=== PATIENT | female | born 1955 | race Caucasian/White ===

== ENCOUNTER 2018-01-10 14:45 | Inpatient (IN) | payer OTHER ==
[2018-01-10] MEDS ORDERED: Propranolol TAB* 20 MG PO ONE (15:48)
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
[2018-01-10] MEDS ORDERED: Acetaminophen TAB* 325 MG PO ONE (16:53)
[2018-01-10] MEDS ORDERED: Amitriptyline TAB* 50 MG PO ONE (17:21)
[2018-01-10] MEDS ORDERED: FLUoxetine CAP* 20 MG PO ONE (17:22)
[2018-01-10] MEDS ORDERED: Amitriptyline TAB* 25 MG PO ONE (17:30)
[2018-01-10 17:49] LABS: EGFR Non-African American 70.9 (>60)
[2018-01-10 17:51] LABS: ABS Basophils 0 10^3/ul (0-0.2); ABS Eosinophils 0.1 10^3/ul (0-0.6); ABS Lymphocytes 2.9 10^3/ul (1.0-4.8); ABS Monocytes 0.9 10^3/ul (0-0.8); ABS Nucleated RBC 0 10^3/ul; Eosinophil % 1.3 % (0-6); Hematocrit 40 % (35-47); Hemoglobin 13.5 g/dl (12.0-16.0); Lymphocyte % 32.7 % (25-47); Mean Corpuscular HGB Conc 34 g/dl (31-36); Mean Corpuscular Hemoglobin 29 pg (27-31); Mean Corpuscular Volume 86 fL (80-97); Mean Platelet Volume 7.3 um3 (7.4-10.4); Nucleated Red Blood Cells % 0; Platelet Count 380 10^3/ul (150-450); Red Cell Distribution Width 14 % (10.5-15)
[2018-01-10 18:07] LABS: Urine Appearance Clear; Urine Blood Negative (Negative); Urine Color Yellow; Urine Ketones Negative (Negative); Urine Protein Negative (Negative); Urine Specific Gravity 1.012 (1.010-1.030); Urine Urobilinogen Negative (Negative)
--- NOTE | 2018-01-10 18:26 | RAD ---
INDICATION: Paranoia. Evaluate for CVA COMPARISON: None TECHNIQUE: Noncontrast axial source images were acquired from the skull base to the vertex. FINDINGS: Ventricles/sulci: The ventricles and cisterns are normal in size and configuration for age. Brain parenchyma: There is no focal parenchymal finding, evidence of intracranial mass, or intracranial mass effect. Intracranial hemorrhage:None. Extra-axial spaces: There are no abnormal extra axial fluid collections or evidence of extra-axial mass. Calvarium: There is no calvarial fracture or other calvarial abnormality. Scalp: There is no evidence of scalp or extracalvarial soft tissue abnormality. Paranasal sinuses/mastoid: The paranasal sinuses and mastoid air cells are clear. Other: None. IMPRESSION: NEGATIVE EXAMINATION.
[2018-01-10] MEDS ORDERED: Cyclobenzaprine TAB* 10 MG PO ONE (19:10)
--- NOTE | 2018-01-10 21:51 | ED ---
Course/Dx - Course Course Of Treatment: PATIENT IS MEDICALLY CLEARED FOR MHE. MHE AND DISPOSITION PENDING AT SHIFT CHANGE. - Diagnoses Provider Diagnoses: Anxiety, Paranoia, Rebound hypertension, Suicidal ideation Discharge - Sign-Out/Discharge Documenting (check all that apply): Sign-Out Patient Signing out patient TO: Marcial Parra - Discharge Plan Condition: Improved Disposition: [facility]IATRIC FACILITY-[facility] [place] Referrals: No Primary Care Phys,NOPCP [Primary Care Provider] - - Billing Disposition and Condition Condition: IMPROVED Disposition: [facility]
[2018-01-10] MEDS ORDERED: Lidocaine PATCH 5%* 1 PATCH TRANSDERM SCH (23:45)
[2018-01-11] MEDS: Cyclobenzaprine TAB* 10 MG PO ONE ×2 (02:28→02:52)
[2018-01-11] MEDS: Amitriptyline TAB* 50 MG PO ONE ×2 (02:28→04:00)
[2018-01-11] MEDS: Acetaminophen TAB* 325 MG PO ONE ×2 (02:28→02:47)
[2018-01-11] MEDS ORDERED: Lidocaine PATCH 5%* 1 PATCH ONE (02:44)
[2018-01-11] MEDS ORDERED: Lidocaine PATCH 5%* 1 PATCH TRANSDERM ONE (02:47)
[2018-01-11] MEDS ORDERED: FLUoxetine CAP* 20 MG PO ONE (06:59)
--- NOTE | 2018-01-11 07:17 | PN ---
ED Flex Patient Progress Note Subjective: This is a 62 year-old F who is pending admission to [facility] secondary to anxiety, paranoia, SI . Pt reports she was sitting in bed, thinking about suicide. States she will not act on it at this time. Wondering when she will go to the unit. Concerned about her WBC's. Reports the cocaine + is wrong. Objective: Vitals: Most recent vital signs documented below. General NAD, Alert and oriented x3. Heart: rrr S1/S2, Lungs: CTA breathing easily AB: + BS, soft, NTTP Laboratory: Current laboratory results documented below. Assessment: 1) Anxiety, paranoia, SI 2) Rebound HTN 3) Chronic pain Plan: 1) Pending psychiatric admit. Prozac, amitriptyline, benadryl, propranolol rx' d. Will follow up daily _while in ED____. 2) Controlled w/ propranolol 20mg TID 3) Flexeril, amitriptyline ordered. She has also tried acetaminophen and lidoderm patches while here. No narcotics. Vital Signs Temp Pulse Resp BP Pulse Ox 97.8 F 83 16 132/92 97 01/11/18 06:51 01/11/18 06:51 01/11/18 06:51 01/11/18 06:51 01/11/18 06:51 Lab Results - Entire Visit 01/10/18 01/10/18 01/10/18 17:24 17:24 17:20 WBC 9.0 RBC 4.70 Hgb 13.5 Hct 40 MCV 86 MCH 29 MCHC 34 RDW 14 Plt Count 380 MPV 7.3 L Neut % (Auto) 55.7 Lymph % (Auto) 32.7 Arthur % (Auto) 9.8 H Eos % (Auto) 1.3 Baso % (Auto) 0.5 Absolute Neuts (auto) 5.0 Absolute Lymphs (auto) 2.9 Absolute Monos (auto) 0.9 H Absolute Eos (auto) 0.1 Absolute Basos (auto) 0 Absolute Nucleated RBC 0 Nucleated RBC % 0 Sodium 135 L Potassium 3.7 Chloride 100 L Carbon Dioxide 26 Anion Gap 9 BUN 9 Creatinine 0.82 Est GFR ( Amer) 91.1 Est GFR (Non-Af Amer) 70.9 BUN/Creatinine Ratio 11.0 Glucose 102 H Calcium 9.3 Total Bilirubin 0.30 AST 17 ALT 16 Alkaline Phosphatase 71 Total Protein 7.3 Albumin 4.3 Globulin 3.0 Albumin/Globulin Ratio 1.4 TSH 1.36 Urine Color Urine Appearance Urine pH Ur Specific [place] Urine Protein Urine Ketones Urine Blood Urine Nitrate Urine Bilirubin Urine Urobilinogen Ur Leukocyte Esterase Urine WBC (Auto) Urine RBC (Auto) Ur Squamous Epith Cells Urine Bacteria Urine Glucose Salicylates < 2.50 Urine Opiates Screen None detected Acetaminophen < 15 Ur Barbiturates Screen None detected Ur Phencyclidine Scrn None detected Ur Amphetamines Screen None detected U Benzodiazepines Scrn Presumptive positive A Urine Cocaine Screen Presumptive positive A U Cannabinoids Screen None detected Serum Alcohol < 10 01/10/18 17:20 WBC RBC Hgb Hct MCV MCH MCHC RDW Plt Count MPV Neut % (Auto) Lymph % (Auto) Arthur % (Auto) Eos % (Auto) Baso % (Auto) Absolute Neuts (auto) Absolute Lymphs (auto) Absolute Monos (auto) Absolute Eos (auto) Absolute Basos (auto) Absolute Nucleated RBC Nucleated RBC % Sodium Potassium Chloride Carbon Dioxide Anion Gap BUN Creatinine Est GFR ( Amer) Est GFR (Non-Af Amer) BUN/Creatinine Ratio Glucose Calcium Total Bilirubin AST ALT Alkaline Phosphatase Total Protein Albumin Globulin Albumin/Globulin Ratio TSH Urine Color Yellow Urine Appearance Clear Urine pH 6.0 Ur Specific [place] 1.012 Urine Protein Negative Urine Ketones Negative Urine Blood Negative Urine Nitrate Negative Urine Bilirubin Negative Urine Urobilinogen Negative Ur Leukocyte Esterase 2+ A Urine WBC (Auto) 1+(6-10/hpf) A Urine RBC (Auto) Absent Ur Squamous Epith Cells Present A Urine Bacteria Absent Urine Glucose Negative Salicylates Urine Opiates Screen Acetaminophen Ur Barbiturates Screen Ur Phencyclidine Scrn Ur Amphetamines Screen U Benzodiazepines Scrn Urine Cocaine Screen U Cannabinoids Screen Serum Alcohol <Mari Bergman - Last Filed: 01/11/18 07:12> Subjective: This is a 62 year-old F who is pending admission to [facility] / transfer to another psychiatric facility / discharge to home / or being observed secondary to . Pt offers no complaints at this time or is c/o . Objective: Vitals: Most recent vital signs documented below. General NAD, Alert and oriented x3. Heart: rrr at bpm Lungs: CTA or with rales, rhonchi, wheezing Laboratory: Current laboratory results documented below. Assessment: Plan: Pending psychiatric or medical consultation to observe / transfer / admit / discharge will follow up daily . Vital Signs Temp Pulse Resp BP Pulse Ox 36.2 C 86 16 121/85 99 01/13/18 07:43 01/13/18 20:06 01/13/18 20:12 01/13/18 20:06 01/13/18 07:43 Lab Results - Entire Visit 01/10/18 01/10/18 01/10/18 17:24 17:24 17:24 WBC 9.0 RBC 4.70 Hgb 13.5 Hct 40 MCV 86 MCH 29 MCHC 34 RDW 14 Plt Count 380 MPV 7.3 L Neut % (Auto) 55.7 Lymph % (Auto) 32.7 Arthur % (Auto) 9.8 H Eos % (Auto) 1.3 Baso % (Auto) 0.5 Absolute Neuts (auto) 5.0 Absolute Lymphs (auto) 2.9 Absolute Monos (auto) 0.9 H Absolute Eos (auto) 0.1 Absolute Basos (auto) 0 Absolute Nucleated RBC 0 Nucleated RBC % 0 Sodium 135 L Potassium 3.7 Chloride 100 L Carbon Dioxide 26 Anion Gap 9 BUN 9 Creatinine 0.82 Est GFR ( Amer) 91.1 Est GFR (Non-Af Amer) 70.9 BUN/Creatinine Ratio 11.0 Glucose 102 H Hemoglobin A1c 5.7 H Calcium 9.3 Total Bilirubin 0.30 AST 17 ALT 16 Alkaline Phosphatase 71 Total Protein 7.3 Albumin 4.3 Globulin 3.0 Albumin/Globulin Ratio 1.4 Triglycerides 97 Cholesterol 211 LDL Cholesterol 128 HDL Cholesterol 63.4 TSH 1.36 Urine Color Urine Appearance Urine pH Ur Specific [place] Urine Protein Urine Ketones Urine Blood Urine Nitrate Urine Bilirubin Urine Urobilinogen Ur Leukocyte Esterase Urine WBC (Auto) Urine RBC (Auto) Ur Squamous Epith Cells Urine Bacteria Urine Glucose Salicylates < 2.50 Urine Opiates Screen Acetaminophen < 15 Ur Barbiturates Screen Ur Phencyclidine Scrn Ur Amphetamines Screen U Benzodiazepines Scrn Urine Cocaine Screen U Cannabinoids Screen Serum Alcohol < 10 01/10/18 01/10/18 17:20 17:20 WBC RBC Hgb Hct MCV MCH MCHC RDW Plt Count MPV Neut % (Auto) Lymph % (Auto) Arthur % (Auto) Eos % (Auto) Baso % (Auto) Absolute Neuts (auto) Absolute Lymphs (auto) Absolute Monos (auto) Absolute Eos (auto) Absolute Basos (auto) Absolute Nucleated RBC Nucleated RBC % Sodium Potassium Chloride Carbon Dioxide Anion Gap BUN Creatinine Est GFR ( Amer) Est GFR (Non-Af Amer) BUN/Creatinine Ratio Glucose Hemoglobin A1c Calcium Total Bilirubin AST ALT Alkaline Phosphatase Total Protein Albumin Globulin Albumin/Globulin Ratio Triglycerides Cholesterol LDL Cholesterol HDL Cholesterol TSH Urine Color Yellow Urine Appearance Clear Urine pH 6.0 Ur Specific [place] 1.012 Urine Protein Negative Urine Ketones Negative Urine Blood Negative Urine Nitrate Negative Urine Bilirubin Negative Urine Urobilinogen Negative Ur Leukocyte Esterase 2+ A Urine WBC (Auto) 1+(6-10/hpf) A Urine RBC (Auto) Absent Ur Squamous Epith Cells Present A Urine Bacteria Absent Urine Glucose Negative Salicylates Urine Opiates Screen None detected Acetaminophen Ur Barbiturates Screen None detected Ur Phencyclidine Scrn None detected Ur Amphetamines Screen None detected U Benzodiazepines Scrn Presumptive positive A Urine Cocaine Screen Presumptive positive A U Cannabinoids Screen None detected Serum Alcohol <Marcial Parra - Last Filed: 01/13/18 20:20>
[2018-01-11] MEDS: diPHENhydraMINE PO* 25 MG PO PRN ×2 (08:57→18:20)
[2018-01-11] MEDS: FLUoxetine CAP* 20 MG PO SCH (08:57)
[2018-01-11] MEDS: Cyclobenzaprine TAB* 10 MG PO SCH ×3 (08:58→20:27)
[2018-01-11] MEDS: Omeprazole CAP* 20 MG PO SCH ×3 (08:58→20:26)
[2018-01-11] MEDS: Acetaminophen TAB* 325 MG PO PRN ×2 (08:58→18:21)
[2018-01-11] MEDS ORDERED: Cyclobenzaprine TAB* 10 MG PO SCH (09:00)
[2018-01-11] MEDS: Amitriptyline TAB* 50 MG PO SCH ×3 (09:04→23:00)
[2018-01-11] MEDS: Propranolol TAB* 20 MG PO SCH ×3 (10:00→20:26)
[2018-01-11] MEDS: Fluticasone NASAL SPRAY 50MCG* 16 gm SPRAY BTL BOTH NARES SCH (10:00)
[2018-01-11] MEDS ORDERED: diPHENhydraMINE PO* 25 MG PO ONE (12:53)
[2018-01-11] MEDS ORDERED: Lidocaine Patch REMOVE* 1 NOTE MISC PATCH OFF ONE (14:47)
--- NOTE | 2018-01-11 17:45 | ED ---
Progress - Consult/PCP Time Called: 21:49 Course/Dx - Course Course Of Treatment: Jenn Martinez presented on a previous shift, was medically cleared and went to the Flex Unit to await a MHE. She was evaluated and they admitted her to the MHU. - Diagnoses Provider Diagnoses: Unspecified psychosis Discharge - Sign-Out/Discharge Documenting (check all that apply): Discharge/Admit/Transfer - Discharge Plan Condition: Stable Disposition: PSYCHIATRIC FACILITY-[facility] [place] Referrals: No Primary Care Phys,NOPCP [Primary Care Provider] - - Billing Disposition and Condition Condition: STABLE Disposition: [facility]
[2018-01-12] MEDS: Acetaminophen TAB* 325 MG PO PRN ×3 (05:59→19:25)
[2018-01-12] MEDS: diPHENhydraMINE PO* 25 MG PO PRN ×3 (05:59→19:23)
[2018-01-12] MEDS: Fluticasone NASAL SPRAY 50MCG* 16 gm SPRAY BTL BOTH NARES SCH (08:06)
[2018-01-12] MEDS: Amitriptyline TAB* 50 MG PO SCH ×3 (08:07→20:20)
[2018-01-12] MEDS: Propranolol TAB* 20 MG PO SCH ×3 (08:07→20:23)
[2018-01-12] MEDS: FLUoxetine CAP* 20 MG PO SCH (08:08)
[2018-01-12] MEDS: Omeprazole CAP* 20 MG PO SCH ×3 (08:08→20:22)
[2018-01-12] MEDS: Cyclobenzaprine TAB* 10 MG PO SCH ×3 (08:08→20:21)
[2018-01-12] MEDS: QUEtiapine TAB* 100 MG PO SCH (20:52)
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
[2018-01-12] MEDS: guaiFENesin ER TAB 600 MG PO PRN (20:56)
[2018-01-13] MEDS: Acetaminophen TAB* 325 MG PO PRN ×2 (05:04→12:32)
[2018-01-13] MEDS: diPHENhydraMINE PO* 25 MG PO PRN ×2 (05:04→12:32)
[2018-01-13] MEDS: Benzocaine/Menthol LOZ* 1 LOZENGE PO PRN (05:35)
[2018-01-13] MEDS: Cyclobenzaprine TAB* 10 MG PO SCH ×3 (07:20→20:12)
--- NOTE | 2018-01-13 07:57 | PN ---
MHU: Group Therapy Note - Service Type Service Type: 12861 Group Psychotherapy - Medication Education Group: Patient joined group late, remained in behavioral control. Patient noted to be circumstantial about substances that were not particularly on topic.
[2018-01-13] MEDS: Fluticasone NASAL SPRAY 50MCG* 16 gm SPRAY BTL BOTH NARES SCH (08:48)
[2018-01-13] MEDS: Propranolol TAB* 20 MG PO SCH ×3 (08:48→20:14)
[2018-01-13] MEDS: Amitriptyline TAB* 50 MG PO SCH ×3 (08:49→20:11)
[2018-01-13] MEDS: FLUoxetine CAP* 20 MG PO SCH (08:49)
[2018-01-13] MEDS: guaiFENesin ER TAB 600 MG PO PRN (08:51)
[2018-01-13] MEDS: Omeprazole CAP* 20 MG PO SCH ×3 (09:01→20:13)
[2018-01-13] MEDS ORDERED: LORazepam TAB(*) 1 MG ONE (16:55)
[2018-01-13] MEDS: LORazepam TAB(*) 1 MG PO PRN ×2 (16:57→21:39)
--- NOTE | 2018-01-13 17:58 | PN ---
Subjective - Subjective Date of Service: 01/13/18 Service Type: [id number] Hosp care 35 min high complexity Subjective: Patient is expansive in presentation. She presents as child-like at times, irritable and anxious at times, calm and in behavioral control at times. She continues to persistently request adderall. She declined quetiapine last night and reports she had "a very restful night." Patient signed GATO for [facility] in [place], [place]. E Commerce Strategist phoned and told that her name was in their system. E Commerce Strategist clarified with patient that she has not had other alias and verified her name on IDs. Plan - Plan Treatment Plan: Name: SHERRIE BOOKER Birthdate: 1955 [id number] continue acute intensive psychiatric treatment. add lorazepam for anxiety and prevent potential benzodiazepine withdrawal. Continue to establish rapport and gain information about prior medical and psychiatric history. Continued Medication Management: Different Medication Medications: Current Medications Acetaminophen (Tylenol Tab*) 975 mg PO Q6H PRN PRN Reason: PAIN OR TEMPERATURE Last Admin: 01/13/18 12:32 Dose: 975 mg Amitriptyline HCl (Elavil Tab*) 50 mg PO TID [facility] Last Admin: 01/13/18 13:15 Dose: 50 mg Cyclobenzaprine HCl (Flexeril Tab*) 10 mg PO TID [facility] Last Admin: 01/13/18 13:15 Dose: 10 mg Fluoxetine HCl (Prozac Cap*) 20 mg PO DAILY [facility] Last Admin: 01/13/18 08:49 Dose: 20 mg Fluticasone Propionate (Flonase Nasal [place] 50mcg*) 2 spray BOTH NARES DAILY [facility] Last Admin: 01/13/18 08:48 Dose: 2 spray Guaifenesin (Mucinex*) 600 mg PO Q12H PRN PRN Reason: COUGH/CONGESTION Last Admin: 01/13/18 08:51 Dose: 600 mg Lorazepam (Ativan Tab(*)) 1 mg PO Q4H PRN PRN Reason: ANXIETY Last Admin: 01/13/18 16:57 Dose: 1 mg Omeprazole (Prilosec Cap*) 20 mg PO TID [facility] Last Admin: 01/13/18 13:16 Dose: Not Given Propranolol HCl (Inderal Tab*) 20 mg PO TID [facility] Last Admin: 01/13/18 13:15 Dose: 20 mg Quetiapine Fumarate (Seroquel Tab*) 100 mg PO BEDTIME [facility] Last Admin: 01/12/18 20:52 Dose: Not Given Throat Lozenges (Chloraseptic Willy*) 1 willy PO Q4H PRN PRN Reason: SORE THROAT Last Admin: 01/13/18 05:35 Dose: 1 willy - Discharge Plan Discharge Plan: Outpatient Follow Up Outpatient Program[facility]
[2018-01-13] MEDS: QUEtiapine TAB* 100 MG PO SCH (20:15)
[2018-01-14] MEDS: Acetaminophen TAB* 325 MG PO PRN ×2 (06:01→18:46)
[2018-01-14] MEDS: LORazepam TAB(*) 1 MG PO PRN ×4 (06:01→18:47)
[2018-01-14] MEDS: Fluticasone NASAL SPRAY 50MCG* 16 gm SPRAY BTL BOTH NARES SCH (07:55)
[2018-01-14] MEDS: Amitriptyline TAB* 50 MG PO SCH ×3 (07:56→19:48)
[2018-01-14] MEDS: Cyclobenzaprine TAB* 10 MG PO SCH ×3 (07:56→19:47)
[2018-01-14] MEDS: FLUoxetine CAP* 20 MG PO SCH (07:56)
[2018-01-14] MEDS: Propranolol TAB* 20 MG PO SCH ×3 (07:57→19:48)
[2018-01-14] MEDS: Omeprazole CAP* 20 MG PO SCH ×3 (07:57→19:48)
[2018-01-14] MEDS: guaiFENesin ER TAB 600 MG PO PRN (08:56)
[2018-01-14] MEDS: QUEtiapine TAB* 100 MG PO SCH (19:48)
[2018-01-15] MEDS: LORazepam TAB(*) 1 MG PO PRN ×5 (05:20→22:10)
[2018-01-15] MEDS: Cyclobenzaprine TAB* 10 MG PO SCH ×4 (05:21→20:20)
[2018-01-15] MEDS: Fluticasone NASAL SPRAY 50MCG* 16 gm SPRAY BTL BOTH NARES SCH (08:55)
[2018-01-15] MEDS: Amitriptyline TAB* 50 MG PO SCH ×3 (08:56→20:23)
[2018-01-15] MEDS: Propranolol TAB* 20 MG PO SCH ×3 (08:57→20:20)
[2018-01-15] MEDS: FLUoxetine CAP* 20 MG PO SCH (08:57)
[2018-01-15] MEDS: Omeprazole CAP* 20 MG PO SCH ×4 (08:58→20:20)
[2018-01-15] MEDS: Acetaminophen TAB* 325 MG PO PRN ×2 (11:59→19:09)
[2018-01-15] MEDS: Nicotine Inhaler* 10 MG AMP INH PRN (12:00)
[2018-01-15] MEDS: Mouth Piece, Nicotine* 1 EACH CARTRIDGE INH PRN (12:00)
--- NOTE | 2018-01-15 18:05 | PN ---
Subjective - Subjective Date of Service: 01/15/18 Service Type: 92874 Hosp care 15 min low complexity Subjective: In bed with her eyes covered. Approached me several times in the dayroom asking for Adderall and Benadryl. Otherwise answer negatives on other questions. Not interested to talk much about issues just wants Adderall . Objective - Appearance Appearance: Thin Framed Dysmorphic Features: No Hygiene: Normal Grooming: Disheveled - Behavior Psychomotor Activities: Abnormal-Increased Exhibits Abnormal Movement: No - Attitude and Relatedness Attitude and Relatedness: Appropriate Eye Contact: Fair - Speech Quality: Unpressured Latencies: Normal Quantity: Appropriate - Mood Patient's Decription of Mood: "Okay" - Affect Observed Affect: Non-labile Affect Consistent with: Dysphoria - Thought Process Patient's Thought Process: Coherent - Sensorium Experiencing Hallucinations: No, Sensorium is Clear Type of Hallucinations: Visual: No, Auditory: No, Command: No - Level of Consciousness Level of Consciousness: Alert Orientation: Yes Intact, Yes Orientated to Time, Yes Orientated to Place, Yes Orientated to Person - Impulse Control Impulse Control: Tenuous - Insight and Judgement Insight and Judgement: Poor - Group Participation Particating in Group Activities: No - Medication Management Medication Management Adherence: Yes Assessment - Assessment Merits Inpatient Hospitalization: For Immediate Safety, For Stabilization, For Ongoing Evaluation Plan - Plan Treatment Plan: Name: SHERRIE BOOKER Birthdate: 1955 [id number] Continued Medication Management: Continue Outpt Medication Medications: Current Medications Acetaminophen (Tylenol Tab*) 650 mg PO Q4H PRN PRN Reason: PAIN Last Admin: 01/15/18 11:59 Dose: 650 mg Amitriptyline HCl (Elavil Tab*) 50 mg PO TID [facility] Last Admin: 01/15/18 13:46 Dose: 50 mg Cyclobenzaprine HCl (Flexeril Tab*) 10 mg PO TID [facility] Last Admin: 01/15/18 13:45 Dose: 10 mg Device (Nicotine Mouth Piece*) 1 each INH ONCE PRN PRN Reason: CRAVING Last Admin: 01/15/18 12:00 Dose: 1 each Fluoxetine HCl (Prozac Cap*) 20 mg PO DAILY [facility] Last Admin: 01/15/18 08:57 Dose: 20 mg Fluticasone Propionate (Flonase Nasal [place] 50mcg*) 2 spray BOTH NARES DAILY [facility] Last Admin: 01/15/18 08:55 Dose: 2 spray Guaifenesin (Mucinex*) 600 mg PO Q12H PRN PRN Reason: COUGH/CONGESTION Last Admin: 01/14/18 08:56 Dose: 600 mg Lorazepam (Ativan Tab(*)) 1 mg PO Q4H PRN PRN Reason: ANXIETY Last Admin: 01/15/18 17:48 Dose: 1 mg Nicotine (Nicotine Inhaler*) 10 mg INH Q2H PRN PRN Reason: CRAVINGS Last Admin: 01/15/18 12:00 Dose: 10 mg Omeprazole (Prilosec Cap*) 20 mg PO TID [facility] Last Admin: 01/15/18 16:26 Dose: 20 mg Propranolol HCl (Inderal Tab*) 20 mg PO TID [facility] Last Admin: 01/15/18 13:44 Dose: 20 mg Quetiapine Fumarate (Seroquel Tab*) 100 mg PO BEDTIME [facility] Last Admin: 01/14/18 19:48 Dose: Not Given Throat Lozenges (Chloraseptic Willy*) 1 willy PO Q4H PRN PRN Reason: SORE THROAT Last Admin: 01/13/18 05:35 Dose: 1 willy - Discharge Plan Discharge Plan: Outpatient Follow Up Outpatient [facility]
[2018-01-15] MEDS: QUEtiapine TAB* 100 MG PO SCH (20:20)
[2018-01-16] MEDS: Acetaminophen TAB* 325 MG PO PRN ×4 (01:19→17:56)
[2018-01-16] MEDS: LORazepam TAB(*) 1 MG PO PRN ×3 (02:59→12:33)
[2018-01-16] MEDS: Cyclobenzaprine TAB* 10 MG PO SCH ×3 (08:17→20:01)
[2018-01-16] MEDS: Amitriptyline TAB* 50 MG PO SCH ×2 (08:18→13:27)
[2018-01-16] MEDS: FLUoxetine CAP* 20 MG PO SCH (08:19)
[2018-01-16] MEDS: Propranolol TAB* 20 MG PO SCH ×3 (08:19→20:01)
[2018-01-16] MEDS: Omeprazole CAP* 20 MG PO SCH ×4 (08:19→20:07)
[2018-01-16] MEDS: Fluticasone NASAL SPRAY 50MCG* 16 gm SPRAY BTL BOTH NARES SCH (08:19)
[2018-01-16] MEDS: Nicotine Inhaler* 10 MG AMP INH PRN ×2 (08:24→18:23)
[2018-01-16] MEDS ORDERED: Methylphenidate TAB* 10 MG PO ONE (15:04)
[2018-01-16] MEDS: Gabapentin CAP(*) 100 MG PO SCH ×2 (15:13→20:00)
--- NOTE | 2018-01-16 16:41 | PN ---
Subjective - Subjective Service Type: 71685 Hosp care 25 min moderate complexity Subjective: Patient continues to perseverate on need for stimulant. She states "I never do wrong things when I'm on my medicine" and appears child-like. Patient requests to be able to use benadryl for anxiety prn in addition to lorazepam, as she does not want "a ton of benzos." She agrees to change from amitriptylline to gabapentin for pain in event that TCA is causing activation. Sheet Metal Worker Supervisor informs patient of difficulty finding previous treatment records. She states she has been seen at [facility] in [place], Dr Abebe in [place] and her PCP is Dr Smith. She can recall street addresses and phone numbers and gives marketing writer permission to call the above. Objective - Appearance Appearance: Well Developed/Nourished Dysmorphic Features: Yes Hygiene: Normal Grooming: Fairly Well Kept - Behavior Psychomotor Activities: Abnormal-Increased - hyperactive, rocking back and forth Exhibits Abnormal Movement: Yes - Attitude and Relatedness Attitude and Relatedness: Needy Eye Contact: Good - Speech Quality: Pressured Latencies: Normal Quantity: Copious - Mood Patient's Decription of Mood: "Anxious" - Affect Observed Affect: Expansive Affect Consistent with: Euphoria - Thought Process Patient's Thought Process: Circumstantial Thought Content: Yes Paranoid Ideation, No Passive Wish, No Suicidal Planning, No Homicidal Ideation - Sensorium Experiencing Hallucinations: No, Sensorium is Clear Type of Hallucinations: Visual: No, Auditory: No, Command: No - Level of Consciousness Level of Consciousness: Alert Orientation: Yes Intact, Yes Orientated to Time, Yes Orientated to Place, Yes Orientated to Person - Impulse Control Impulse Control: Impaired - Insight and Judgement Insight and Judgement: Poor - Group Participation Particating in Group Activities: Yes - Medication Management Medication Management Adherence: Yes Assessment - Assessment Merits Inpatient Hospitalization: For Immediate Safety, For Stabilization Inpatient DSM-V Dx: F43.12 Clinical Impression: 62yo white female who recently located to [place] from [place], [place]. She presented to the ED with questionable psychosis and bizarre behavior. She presents as disorganized with dissociative episodes. She merits hospitalization for immediate safety, stabilization and diagnosis determination. Plan - Plan Treatment Plan: Name: SHERRIE BOOKER Birthdate: 1955 [id number] continue acute intensive psychiatric treatment. decrease lorazepam for anxiety and add benadryl per patient request. DC amitriptylline. add gabapentin TID. one time dose of methylphenidate to assess effect. Continue to establish rapport and gain information about prior medical and psychiatric history. Continued Medication Management: Different Medication Medications: Current Medications Acetaminophen (Tylenol Tab*) 975 mg PO Q6H PRN PRN Reason: PAIN Cyclobenzaprine HCl (Flexeril Tab*) 10 mg PO TID [facility] Last Admin: 01/16/18 13:28 Dose: 10 mg Device (Nicotine Mouth Piece*) 1 each INH ONCE PRN PRN Reason: CRAVING Last Admin: 01/15/18 12:00 Dose: 1 each Diphenhydramine HCl (Benadryl Po*) 25 mg PO Q6H PRN PRN Reason: anxiety/insomnia Fluoxetine HCl (Prozac Cap*) 20 mg PO DAILY [facility] Last Admin: 01/16/18 08:19 Dose: 20 mg Fluticasone Propionate (Flonase Nasal [place] 50mcg*) 2 spray BOTH NARES DAILY [facility] Last Admin: 01/16/18 08:19 Dose: 2 spray Gabapentin (Neurontin Cap(*)) 100 mg PO TID [facility] Last Admin: 01/16/18 15:13 Dose: 100 mg Guaifenesin (Mucinex*) 600 mg PO Q12H PRN PRN Reason: COUGH/CONGESTION Last Admin: 01/14/18 08:56 Dose: 600 mg Lorazepam (Ativan Tab(*)) 1 mg PO BID [facility] Nicotine (Nicotine Inhaler*) 10 mg INH Q2H PRN PRN Reason: CRAVINGS Last Admin: 01/16/18 08:24 Dose: 10 mg Omeprazole (Prilosec Cap*) 20 mg PO TID [facility] Last Admin: 01/16/18 13:27 Dose: 20 mg Propranolol HCl (Inderal Tab*) 20 mg PO TID [facility] Last Admin: 01/16/18 13:27 Dose: 20 mg Quetiapine Fumarate (Seroquel Tab*) 100 mg PO BEDTIME [facility] Last Admin: 01/15/18 20:20 Dose: 100 mg Throat Lozenges (Chloraseptic Willy*) 1 willy PO Q4H PRN PRN Reason: SORE THROAT Last Admin: 01/13/18 05:35 Dose: 1 willy - Discharge Plan Discharge Plan: Outpatient Follow Up [facility]
[2018-01-16] MEDS: diPHENhydraMINE PO* 25 MG PO PRN (17:56)
[2018-01-16] MEDS ORDERED: Mouth Piece, Nicotine* 1 EACH CARTRIDGE ONE (18:15)
[2018-01-16] MEDS: QUEtiapine TAB* 100 MG PO SCH (20:02)
[2018-01-16] MEDS: LORazepam TAB(*) 1 MG PO SCH (20:02)
[2018-01-17] MEDS: Acetaminophen TAB* 325 MG PO PRN ×4 (06:39→23:55)
[2018-01-17] MEDS: diPHENhydraMINE PO* 25 MG PO PRN ×4 (06:39→23:55)
[2018-01-17] MEDS: Cyclobenzaprine TAB* 10 MG PO SCH ×3 (08:02→20:04)
[2018-01-17] MEDS: LORazepam TAB(*) 1 MG PO SCH ×2 (08:02→20:05)
[2018-01-17] MEDS: Fluticasone NASAL SPRAY 50MCG* 16 gm SPRAY BTL BOTH NARES SCH (08:03)
[2018-01-17] MEDS: Gabapentin CAP(*) 100 MG PO SCH ×3 (08:03→20:03)
[2018-01-17] MEDS: Propranolol TAB* 20 MG PO SCH ×3 (08:03→20:04)
[2018-01-17] MEDS: FLUoxetine CAP* 20 MG PO SCH (08:04)
[2018-01-17] MEDS: Omeprazole CAP* 20 MG PO SCH ×3 (08:05→21:00)
[2018-01-17] MEDS: guaiFENesin ER TAB 600 MG PO PRN (09:49)
--- NOTE | 2018-01-17 12:00 | PN ---
MHU: Group Therapy Note - Service Type Service Type: [id number] Group Psychotherapy - Cognitive Behavioral Group Therapy ( CBT):Patient was attentive and participatory in CBT programming this morning, and remained in good behavioral control. Patient expressed positive insights regarding relevant treatment interventions and goals.
--- NOTE | 2018-01-17 13:17 | PN ---
Subjective - Subjective Service Type: [id number] Hosp care 25 min moderate complexity Subjective: Patient and staff report much improvement in patient behavior last afternoon/ evening after dose of methylphenidate. Received and reviewed H/P and DC summary from [facility] in [place]. Patient diagnosed with numerous psychiatric problems. Discussed with patient and she denies schizoaffective d/o and attributes her symptoms to PTSD and ADHD. She states "I've been deprived many times in my life." She states she has "worked hard on recovery" in regards to substance use and mental health. She continues to endorse periods of depersonalizing. She reports sleeping well and denies nightmares. Patient has been declining quetiapine, citing that she does not need it. Objective - Appearance Appearance: Well Developed/Nourished Dysmorphic Features: Yes Hygiene: Normal Grooming: Fairly Well Kept - Behavior Psychomotor Activities: Abnormal-Increased - hyperactivce Exhibits Abnormal Movement: Yes - Attitude and Relatedness Attitude and Relatedness: Needy Eye Contact: Good - Speech Quality: Pressured Latencies: Normal Quantity: Copious - Mood Patient's Decription of Mood: "Anxious" - Affect Observed Affect: Expansive Affect Consistent with: Euphoria - Thought Process Patient's Thought Process: Circumstantial Thought Content: Yes Paranoid Ideation, No Passive Wish, No Suicidal Planning, No Homicidal Ideation - Sensorium Experiencing Hallucinations: No, Sensorium is Clear Type of Hallucinations: Visual: No, Auditory: No, Command: No - Level of Consciousness Level of Consciousness: Alert Orientation: Yes Intact, Yes Orientated to Time, Yes Orientated to Place, Yes Orientated to Person - Impulse Control Impulse Control: Poor - Insight and Judgement Insight and Judgement: Poor - Group Participation Particating in Group Activities: Yes Group Participation Comments: hypertalkative, intrusive and off-topic - Medication Management Medication Management Adherence: Yes Assessment - Assessment Merits Inpatient Hospitalization: For Immediate Safety, For Stabilization, Diagnosis Determination, For Ongoing Evaluation, Pending Safe DC Plan Inpatient DSM-V Dx: F43.12 Clinical Impression: 62yo white female who recently located to [place] from [place], [place]. She presented to the ED with questionable psychosis and bizarre behavior. She presents as disorganized with dissociative episodes. She merits hospitalization for immediate safety, stabilization and diagnosis determination. Plan - Plan Treatment Plan: Name: SHERRIE BOOKER Birthdate: 1955 [id number] continue acute intensive psychiatric treatment. add methylphenidate ER 18mg daily continue other medications. Continue to establish rapport and gain information about prior medical and psychiatric history. discharge planning to include outpatient referrals. Continued Medication Management: Different Medication Medications: Current Medications Acetaminophen (Tylenol Tab*) 975 mg PO Q6H PRN PRN Reason: PAIN Last Admin: 01/17/18 06:39 Dose: 975 mg Cyclobenzaprine HCl (Flexeril Tab*) 10 mg PO TID [facility] Last Admin: 01/17/18 08:02 Dose: 10 mg Device (Nicotine Mouth Piece*) 1 each INH ONCE PRN PRN Reason: CRAVING Last Admin: 01/15/18 12:00 Dose: 1 each Diphenhydramine HCl (Benadryl Po*) 25 mg PO Q6H PRN PRN Reason: anxiety/insomnia Last Admin: 01/17/18 06:39 Dose: 25 mg Fluoxetine HCl (Prozac Cap*) 20 mg PO DAILY [facility] Last Admin: 01/17/18 08:04 Dose: 20 mg Fluticasone Propionate (Flonase Nasal [place] 50mcg*) 2 spray BOTH NARES DAILY [facility] Last Admin: 01/17/18 08:03 Dose: 2 spray Gabapentin (Neurontin Cap(*)) 100 mg PO TID [facility] Last Admin: 01/17/18 08:03 Dose: 100 mg Guaifenesin (Mucinex*) 600 mg PO Q12H PRN PRN Reason: COUGH/CONGESTION Last Admin: 01/17/18 09:49 Dose: 600 mg Lorazepam (Ativan Tab(*)) 1 mg PO BID [facility] Last Admin: 01/17/18 08:02 Dose: 1 mg Methylphenidate HCl (Concerta Er Tab*) 18 mg PO DAILY [facility] Nicotine (Nicotine Inhaler*) 10 mg INH Q2H PRN PRN Reason: CRAVINGS Last Admin: 01/16/18 18:23 Dose: 10 mg Omeprazole (Prilosec Cap*) 20 mg PO TID [facility] Last Admin: 01/17/18 08:05 Dose: Not Given Propranolol HCl (Inderal Tab*) 20 mg PO TID [facility] Last Admin: 01/17/18 08:03 Dose: 20 mg Quetiapine Fumarate (Seroquel Tab*) 100 mg PO BEDTIME [facility] Last Admin: 01/16/18 20:02 Dose: Not Given Throat Lozenges (Chloraseptic Willy*) 1 willy PO Q4H PRN PRN Reason: SORE THROAT Last Admin: 01/13/18 05:35 Dose: 1 willy - Discharge Plan Discharge Plan: Outpatient Follow Up Outpatient Program: [facility]
[2018-01-17] MEDS: Methylphenidate ER TAB* 18 MG PO SCH (13:26)
[2018-01-17] MEDS: QUEtiapine TAB* 100 MG PO SCH (21:00)
[2018-01-18] MEDS: Acetaminophen TAB* 325 MG PO PRN ×3 (05:45→19:42)
[2018-01-18] MEDS: Omeprazole CAP* 20 MG PO SCH ×3 (07:15→20:11)
[2018-01-18] MEDS: Propranolol TAB* 20 MG PO SCH ×3 (07:15→20:12)
[2018-01-18] MEDS: Gabapentin CAP(*) 100 MG PO SCH ×3 (07:15→20:11)
[2018-01-18] MEDS: Cyclobenzaprine TAB* 10 MG PO SCH ×3 (07:15→19:41)
[2018-01-18] MEDS: Methylphenidate ER TAB* 18 MG PO SCH (07:15)
[2018-01-18] MEDS: Fluticasone NASAL SPRAY 50MCG* 16 gm SPRAY BTL BOTH NARES SCH (07:15)
[2018-01-18] MEDS: FLUoxetine CAP* 20 MG PO SCH (07:15)
[2018-01-18] MEDS: LORazepam TAB(*) 1 MG PO SCH ×2 (07:15→20:11)
[2018-01-18] MEDS: diPHENhydraMINE PO* 25 MG PO PRN ×2 (08:16→18:10)
[2018-01-18] MEDS: Amphetamine MIXED SALT TAB* 10 MG TAB PO SCH (14:04)
--- NOTE | 2018-01-18 15:20 | PN ---
Subjective - Subjective Date of Service: 01/18/18 Service Type: [id number] Hosp care 15 min low complexity Subjective: Jenn approached with concerns about Concerta. She described unpleasant feelings of tightness in her head, neck, and chest. We discussed this could be a possible side effect of Concerta. She stated she was fine on Ritalin and would really like to try Adderall. She states she was on 20 mg BID. She agreed to 10 mg BID. Objective - Appearance Appearance: Healthy Appearing Dysmorphic Features: No Hygiene: Normal Grooming: Disheveled - Behavior Psychomotor Activities: Normal Exhibits Abnormal Movement: No - Attitude and Relatedness Attitude and Relatedness: Needy Eye Contact: Good - Speech Quality: Unpressured Latencies: Normal Quantity: Appropriate - Mood Patient's Decription of Mood: "Terrible" - Affect Observed Affect: Expansive Affect Consistent with: Dysphoria - Thought Process Patient's Thought Process: Goal Directed Thought Content: Yes Passive Wish, No Suicidal Planning, No Homicidal Ideation, No Paranoid Ideation - Sensorium Experiencing Hallucinations: No, Sensorium is Clear Type of Hallucinations: Visual: No, Auditory: No, Command: No - Level of Consciousness Level of Consciousness: Alert Orientation: Yes Intact, Yes Orientated to Time, Yes Orientated to Place, Yes Orientated to Person - Impulse Control Impulse Control: Intact - Insight and Judgement Insight and Judgement: Fair - Group Participation Particating in Group Activities: Yes - Medication Management Medication Management Adherence: Yes - Additional Observations Comments: Jenn is disheveled, but oriented and goal directed. She is pleasant in conversation but desperate to feel like she has control over her thoughts and she demonstrates this through persistent approach of staff. Assessment - Assessment Merits Inpatient Hospitalization: For Immediate Safety Inpatient DSM-V Dx: F43.12 Clinical Impression: Jenn is a 62-year-old woman who appears to be scattered in her thoughts. She asserts that stimulants are helpful to her, and this indeed appears to be true. We will try Adderall at a lower dose than she reports she typically takes. She appears to be coalescing a bit on the unit. Plan - Plan Treatment Plan: Name: JENN BOOKER Birthdate: 1955 [id number] Medications: Current Medications Acetaminophen (Tylenol Tab*) 975 mg PO Q6H PRN PRN Reason: PAIN Last Admin: 01/18/18 14:04 Dose: 975 mg Amphetamine/Dextroamphetamine (Adderall Tab*) 10 mg PO 0700,1400 [facility] Last Admin: 01/18/18 14:04 Dose: 10 mg Cyclobenzaprine HCl (Flexeril Tab*) 10 mg PO TID [facility] Last Admin: 01/18/18 14:04 Dose: 10 mg Device (Nicotine Mouth Piece*) 1 each INH ONCE PRN PRN Reason: CRAVING Last Admin: 01/15/18 12:00 Dose: 1 each Diphenhydramine HCl (Benadryl Po*) 25 mg PO Q6H PRN PRN Reason: anxiety/insomnia Last Admin: 01/18/18 08:16 Dose: 25 mg Fluoxetine HCl (Prozac Cap*) 20 mg PO DAILY [facility] Last Admin: 01/18/18 07:15 Dose: 20 mg Fluticasone Propionate (Flonase Nasal [place] 50mcg*) 2 spray BOTH NARES DAILY [facility] Last Admin: 01/18/18 07:15 Dose: 2 spray Gabapentin (Neurontin Cap(*)) 100 mg PO TID [facility] Last Admin: 01/18/18 14:04 Dose: 100 mg Guaifenesin (Mucinex*) 600 mg PO Q12H PRN PRN Reason: COUGH/CONGESTION Last Admin: 01/17/18 09:49 Dose: 600 mg Lorazepam (Ativan Tab(*)) 1 mg PO BID [facility] Last Admin: 01/18/18 07:15 Dose: 1 mg Nicotine (Nicotine Inhaler*) 10 mg INH Q2H PRN PRN Reason: CRAVINGS Last Admin: 01/16/18 18:23 Dose: 10 mg Omeprazole (Prilosec Cap*) 20 mg PO TID [facility] Last Admin: 01/18/18 14:05 Dose: Not Given Propranolol HCl (Inderal Tab*) 20 mg PO TID [facility] Last Admin: 01/18/18 14:04 Dose: 20 mg Quetiapine Fumarate (Seroquel Tab*) 100 mg PO BEDTIME [facility] Last Admin: 01/17/18 21:00 Dose: Not Given Throat Lozenges (Chloraseptic Willy*) 1 willy PO Q4H PRN PRN Reason: SORE THROAT Last Admin: 01/13/18 05:35 Dose: 1 willy - Discharge Plan Discharge Plan: Outpatient Follow Up Outpatient Program: [facility] Additional Comments: We will try Adderall at a lower dose than she reports she typically takes. She asserts that she has never abused it and if it does, in fact, prove significantly helpful to her, her outpatient provider may choose to prescribe at the dosage she states she used (20 mg BID).
[2018-01-18] MEDS: QUEtiapine TAB* 100 MG PO SCH (20:11)
[2018-01-19] MEDS: Acetaminophen TAB* 325 MG PO PRN ×3 (03:42→18:22)
[2018-01-19] MEDS: diPHENhydraMINE PO* 25 MG PO PRN ×3 (03:43→18:24)
[2018-01-19] MEDS: Gabapentin CAP(*) 100 MG PO SCH ×2 (07:33→13:18)
[2018-01-19] MEDS: Amphetamine MIXED SALT TAB* 10 MG TAB PO SCH ×2 (07:33→13:18)
[2018-01-19] MEDS: FLUoxetine CAP* 20 MG PO SCH (07:33)
[2018-01-19] MEDS: Cyclobenzaprine TAB* 10 MG PO SCH ×2 (07:33→13:18)
[2018-01-19] MEDS: LORazepam TAB(*) 1 MG PO SCH ×2 (07:33→20:01)
[2018-01-19] MEDS: Propranolol TAB* 20 MG PO SCH ×3 (07:34→20:01)
[2018-01-19] MEDS: Omeprazole CAP* 20 MG PO SCH ×3 (07:34→20:01)
[2018-01-19] MEDS: guaiFENesin ER TAB 600 MG PO PRN ×2 (07:37→20:09)
[2018-01-19] MEDS: Fluticasone NASAL SPRAY 50MCG* 16 gm SPRAY BTL BOTH NARES SCH (07:39)
[2018-01-19] MEDS: Nicotine Inhaler* 10 MG AMP INH PRN ×2 (12:40→20:06)
[2018-01-19] MEDS ORDERED: Mouth Piece, Nicotine* 1 EACH CARTRIDGE ONE (12:40)
[2018-01-19] MEDS: Mouth Piece, Nicotine* 1 EACH CARTRIDGE INH PRN (12:40)
--- NOTE | 2018-01-19 13:15 | PN ---
MHU: Group Therapy Note - Service Type Service Type: [id number] Group Psychotherapy - Cognitive Behavioral Group Therapy ( CBT):Patient was attentive and participatory in CBT programming this morning, and remained in good behavioral control. Patient expressed positive insights regarding relevant treatment interventions and goals.
[2018-01-19] MEDS ORDERED: Gabapentin CAP(*) 300 MG PO PRN (15:42)
--- NOTE | 2018-01-19 16:23 | PN ---
Subjective - Subjective Date of Service: 01/19/18 Service Type: [id number] Hosp care 35 min high complexity Subjective: Jenn is a bit frenetic and appears to be disorganized when she is, instead, prone to circumstantial speech and inattentiveness. She describes wanting more pain medication and is willing to negotiate to get increased gabapentin in addition to the Flexeril prescribed by a hospitalist rather than the additional Tramadol she had originally requested. She is being reasonable in her requests and is affectionate and silly at times. Objective - Appearance Appearance: Well Developed/Nourished Dysmorphic Features: No Hygiene: Normal Grooming: Fairly Well Kept - Behavior Psychomotor Activities: Abnormal-Increased Exhibits Abnormal Movement: No - Attitude and Relatedness Attitude and Relatedness: Cooperative Eye Contact: Good - Speech Quality: Pressured Latencies: Normal Quantity: Copious - Mood Patient's Decription of Mood: "Good" - Affect Observed Affect: Expansive Affect Consistent with: Euthymia - Thought Process Patient's Thought Process: Coherent, Circumstantial Thought Content: No Passive Wish, No Suicidal Planning, No Homicidal Ideation, No Paranoid Ideation - Sensorium Experiencing Hallucinations: No, Sensorium is Clear Type of Hallucinations: Visual: No, Auditory: No, Command: No - Level of Consciousness Level of Consciousness: Alert Orientation: Yes Intact, Yes Orientated to Time, Yes Orientated to Place, Yes Orientated to Person - Impulse Control Impulse Control: Intact - Insight and Judgement Insight and Judgement: Poor - Group Participation Particating in Group Activities: Yes - Medication Management Medication Management Adherence: Yes - Additional Observations Comments: Jenn is disheveled, but oriented and goal directed. She is very cooperative and appears desperate to feel like she has control over her thoughts. She is very talkative and her speech is circumstantial in response to questions. Assessment - Assessment Merits Inpatient Hospitalization: For Immediate Safety Inpatient DSM-V Dx: F43.12 Clinical Impression: Jenn is a 62-year-old woman who appears to be scattered in her thoughts. She asserts that stimulants are helpful to her, and this indeed appears to be true. She appears to be coalescing a bit on the unit. We tried Adderall 10 mg BID and she stated it was as helpful as the 20 mg BID she takes outpatient. While circumstantial in speech and unable to speak succinctly, she does make sense and is reasonable about medication adjustments. Plan - Plan Treatment Plan: Name: JENN BOOKER Birthdate: 1955 [id number] Medications: Current Medications Acetaminophen (Tylenol Tab*) 975 mg PO Q6H PRN PRN Reason: PAIN Last Admin: 01/19/18 11:00 Dose: 975 mg Amphetamine/Dextroamphetamine (Adderall Tab*) 10 mg PO 0600,1400 [facility] Cyclobenzaprine HCl (Flexeril Tab*) 10 mg PO TID PRN PRN Reason: PAIN Device (Nicotine Mouth Piece*) 1 each INH ONCE PRN PRN Reason: CRAVING Last Admin: 01/19/18 12:40 Dose: 1 each Diphenhydramine HCl (Benadryl Po*) 25 mg PO Q6H PRN PRN Reason: anxiety/insomnia Last Admin: 01/19/18 11:01 Dose: 25 mg Fluoxetine HCl (Prozac Cap*) 20 mg PO 0600 [facility] Fluticasone Propionate (Flonase Nasal [place] 50mcg*) 2 spray BOTH NARES DAILY [facility] Last Admin: 01/19/18 07:39 Dose: 2 spray Gabapentin (Neurontin Cap(*)) 300 mg PO TID PRN PRN Reason: PAIN Guaifenesin (Mucinex*) 600 mg PO Q12H PRN PRN Reason: COUGH/CONGESTION Last Admin: 01/19/18 07:37 Dose: 600 mg Lidocaine (Lidoderm 5% Patch*) 1 patch TRANSDERM DAILY [facility] Lorazepam (Ativan Tab(*)) 1 mg PO BID [facility] Last Admin: 01/19/18 07:33 Dose: 1 mg Nicotine (Nicotine Inhaler*) 10 mg INH Q2H PRN PRN Reason: CRAVINGS Last Admin: 01/19/18 12:40 Dose: 10 mg Omeprazole (Prilosec Cap*) 20 mg PO TID [facility] Last Admin: 01/19/18 13:19 Dose: Not Given Pharmacy Profile Note (Lidocaine Patch Remove*) 1 note PATCH OFF 0600 [facility] Propranolol HCl (Inderal Tab*) 20 mg PO TID [facility] Last Admin: 01/19/18 13:18 Dose: 20 mg Quetiapine Fumarate (Seroquel Tab*) 100 mg PO BEDTIME [facility] Last Admin: 01/18/18 20:11 Dose: Not Given Throat Lozenges (Chloraseptic Willy*) 1 willy PO Q4H PRN PRN Reason: SORE THROAT Last Admin: 01/13/18 05:35 Dose: 1 willy - Discharge Plan Additional Comments: We tried Adderall at a lower dose than she reports she typically takes with success. She requires further hospitalization as it is not clear if she is at her baseline, as reports from other members of the treatment team indicate she still may be psychotic and is certainly unable to meet her own needs outside the hospital.
[2018-01-19] MEDS: QUEtiapine TAB* 100 MG PO SCH (20:01)
[2018-01-19] MEDS: Cyclobenzaprine TAB* 10 MG PO PRN (20:06)
[2018-01-19] MEDS ORDERED: Gabapentin CAP(*) 300 MG PO SCH (21:00)
[2018-01-20] MEDS: diPHENhydraMINE PO* 25 MG PO PRN ×3 (00:56→18:39)
[2018-01-20] MEDS: Acetaminophen TAB* 325 MG PO PRN ×4 (00:56→19:38)
[2018-01-20] MEDS: Benzocaine/Menthol LOZ* 1 LOZENGE PO PRN (02:11)
[2018-01-20] MEDS: Cyclobenzaprine TAB* 10 MG PO PRN ×3 (05:40→19:43)
[2018-01-20] MEDS: Amphetamine MIXED SALT TAB* 10 MG TAB PO SCH ×2 (06:23→13:42)
[2018-01-20] MEDS: FLUoxetine CAP* 20 MG PO SCH (07:42)
[2018-01-20] MEDS: Propranolol TAB* 20 MG PO SCH ×3 (08:13→20:23)
[2018-01-20] MEDS: Omeprazole CAP* 20 MG PO SCH ×3 (08:14→20:22)
[2018-01-20] MEDS: LORazepam TAB(*) 1 MG PO SCH (08:14)
[2018-01-20] MEDS: Fluticasone NASAL SPRAY 50MCG* 16 gm SPRAY BTL BOTH NARES SCH (08:15)
[2018-01-20] MEDS: Lidocaine Patch REMOVE* 1 NOTE MISC PATCH OFF SCH (08:21)
[2018-01-20] MEDS: Nicotine Inhaler* 10 MG AMP INH PRN ×2 (12:41→18:54)
[2018-01-20] MEDS: Gabapentin CAP(*) 300 MG PO SCH ×2 (13:41→20:23)
--- NOTE | 2018-01-20 14:05 | RAD ---
Indication: Bilateral knee pain. 2 views of left knee and 2 views of the right knee are reviewed. The left knee demonstrates no joint effusion. There may be some joint space narrowing with osteophyte formation in the medial and lateral compartment. The right knee demonstrates joint space narrowing in the medial compartment. No joint effusion is noted. IMPRESSION: Mild degenerative changes in the medial and lateral compartment left knee. No joint effusion is noted.
[2018-01-20] MEDS: Lidocaine PATCH 5%* 1 PATCH TRANSDERM SCH (18:40)
[2018-01-20] MEDS ORDERED: chlorproMAZINE TAB* 100 MG PO PRN (19:53)
--- NOTE | 2018-01-20 20:01 | PN ---
Subjective - Subjective Date of Service: 01/20/18 Service Type: [id number] Hosp care 25 min moderate complexity Subjective: Patient did not sleep well last night was noted to be agitated. Patient is disorganized, tangential. She has multiple notes and index cards with notes about traumatic experiences. She reports arthralgia in multiple areas. She states she recently was injured in both knees on separate occasions and agrees to imaging. While being escorted off the unit, patient was intrusive to other staff and impulsively ran back to ask for business cards. On the unit, patient asks multiple questions of various staff members. She is encouraged to utilize one staff person per shift to avoid conflict and splitting. Assessment - Assessment Merits Inpatient Hospitalization: For Immediate Safety, For Stabilization, Diagnosis Determination, Pending Safe DC Plan Inpatient DSM-V Dx: F43.12 Clinical Impression: 62yo white female who recently located to [place] from [place], [place]. She presented to the ED with questionable psychosis and bizarre behavior. She presents as disorganized with dissociative episodes. She merits hospitalization for immediate safety, stabilization and diagnosis determination. Plan - Plan Treatment Plan: Name: SHERRIE BOOKER Birthdate: 1955 [id number] continue acute intensive psychiatric treatment. add thorazine prn for agitation/mary. continue other medications. Continue to establish rapport and gain information about prior medical and psychiatric history. discharge planning to include outpatient referrals. Continued Medication Management: Different Medication Medications: Current Medications Acetaminophen (Tylenol Tab*) 975 mg PO Q6H PRN PRN Reason: PAIN Last Admin: 01/20/18 19:38 Dose: 975 mg Amphetamine/Dextroamphetamine (Adderall Tab*) 10 mg PO 0600,1400 [facility] Last Admin: 01/20/18 13:42 Dose: 10 mg Chlorpromazine HCl (Thorazine Tab*) 100 mg PO Q6H PRN PRN Reason: AGITATION Cyclobenzaprine HCl (Flexeril Tab*) 10 mg PO TID PRN PRN Reason: PAIN Last Admin: 01/20/18 19:43 Dose: 10 mg Device (Nicotine Mouth Piece*) 1 each INH ONCE PRN PRN Reason: CRAVING Last Admin: 01/19/18 12:40 Dose: 1 each Diphenhydramine HCl (Benadryl Po*) 50 mg PO Q6H PRN PRN Reason: anxiety/insomnia Fluoxetine HCl (Prozac Cap*) 20 mg PO 0600 [facility] Last Admin: 01/20/18 07:42 Dose: 20 mg Fluticasone Propionate (Flonase Nasal [place] 50mcg*) 2 spray BOTH NARES DAILY [facility] Last Admin: 01/20/18 08:15 Dose: 2 spray Gabapentin (Neurontin Cap(*)) 300 mg PO TID [facility] Last Admin: 01/20/18 13:41 Dose: 300 mg Guaifenesin (Mucinex*) 600 mg PO Q12H PRN PRN Reason: COUGH/CONGESTION Last Admin: 01/19/18 20:09 Dose: 600 mg Lidocaine (Lidoderm 5% Patch*) 1 patch TRANSDERM DAILY [facility] Last Admin: 01/20/18 18:40 Dose: 1 patch Lorazepam (Ativan Tab(*)) 1 mg PO BID PRN PRN Reason: ANXIETY Nicotine (Nicotine Inhaler*) 10 mg INH Q2H PRN PRN Reason: CRAVINGS Last Admin: 01/20/18 18:54 Dose: 10 mg Omeprazole (Prilosec Cap*) 20 mg PO TID [facility] Last Admin: 01/20/18 13:42 Dose: Not Given Pharmacy Profile Note (Lidocaine Patch Remove*) 1 note PATCH OFF 0600 [facility] Last Admin: 01/20/18 08:21 Dose: Not Given Propranolol HCl (Inderal Tab*) 20 mg PO TID [facility] Last Admin: 01/20/18 13:41 Dose: 20 mg Quetiapine Fumarate (Seroquel Tab*) 300 mg PO BEDTIME [facility] Throat Lozenges (Chloraseptic Willy*) 1 willy PO Q4H PRN PRN Reason: SORE THROAT Last Admin: 01/20/18 02:11 Dose: 1 willy - Discharge Plan [facility]
[2018-01-20] MEDS: LORazepam TAB(*) 1 MG PO PRN (20:23)
[2018-01-20] MEDS: QUEtiapine TAB* 100 MG PO SCH (20:23)
[2018-01-21] MEDS: diPHENhydraMINE PO* 50 MG PO PRN ×2 (02:28→08:34)
[2018-01-21] MEDS: Acetaminophen TAB* 325 MG PO PRN ×3 (04:15→20:44)
[2018-01-21] MEDS: FLUoxetine CAP* 20 MG PO SCH (06:05)
[2018-01-21] MEDS: Cyclobenzaprine TAB* 10 MG PO PRN ×3 (06:05→20:43)
[2018-01-21] MEDS: Amphetamine MIXED SALT TAB* 10 MG TAB PO SCH ×2 (06:06→13:35)
[2018-01-21] MEDS: Lidocaine Patch REMOVE* 1 NOTE MISC PATCH OFF SCH (08:29)
[2018-01-21] MEDS: Fluticasone NASAL SPRAY 50MCG* 16 gm SPRAY BTL BOTH NARES SCH (08:29)
[2018-01-21] MEDS: Lidocaine PATCH 5%* 1 PATCH TRANSDERM SCH (08:30)
[2018-01-21] MEDS: Gabapentin CAP(*) 300 MG PO SCH ×3 (08:30→20:35)
[2018-01-21] MEDS: Nicotine Inhaler* 10 MG AMP INH PRN ×4 (08:31→19:35)
[2018-01-21] MEDS: Propranolol TAB* 20 MG PO SCH ×3 (08:31→20:36)
[2018-01-21] MEDS: Omeprazole CAP* 20 MG PO SCH ×3 (08:31→20:36)
[2018-01-21] MEDS: LORazepam TAB(*) 1 MG PO PRN ×2 (08:33→20:43)
[2018-01-21] MEDS: QUEtiapine TAB* 100 MG PO SCH ×2 (22:26→22:33)
[2018-01-22] MEDS: Cyclobenzaprine TAB* 10 MG PO PRN ×3 (00:10→16:24)
[2018-01-22] MEDS: diPHENhydraMINE PO* 50 MG PO PRN ×3 (00:10→20:49)
[2018-01-22] MEDS: Acetaminophen TAB* 325 MG PO PRN ×4 (03:20→22:56)
[2018-01-22] MEDS ORDERED: Mouth Piece, Nicotine* 1 EACH CARTRIDGE ONE (04:10)
[2018-01-22] MEDS: Nicotine Inhaler* 10 MG AMP INH PRN ×4 (04:15→16:28)
[2018-01-22] MEDS: Lidocaine Patch REMOVE* 1 NOTE MISC PATCH OFF SCH (06:00)
[2018-01-22] MEDS: Amphetamine MIXED SALT TAB* 10 MG TAB PO SCH ×2 (06:00→13:41)
[2018-01-22] MEDS: FLUoxetine CAP* 20 MG PO SCH (06:00)
[2018-01-22] MEDS: Omeprazole CAP* 20 MG PO SCH ×3 (07:20→20:41)
[2018-01-22] MEDS: Gabapentin CAP(*) 300 MG PO SCH ×3 (07:20→20:40)
[2018-01-22] MEDS: Fluticasone NASAL SPRAY 50MCG* 16 gm SPRAY BTL BOTH NARES SCH (07:20)
[2018-01-22] MEDS: Propranolol TAB* 20 MG PO SCH ×3 (07:20→20:41)
[2018-01-22] MEDS: Benzocaine/Menthol LOZ* 1 LOZENGE PO PRN ×2 (10:01→13:41)
[2018-01-22] MEDS: guaiFENesin ER TAB 600 MG PO PRN (13:40)
[2018-01-22] MEDS: LORazepam TAB(*) 1 MG PO PRN (16:31)
[2018-01-22] MEDS: QUEtiapine TAB* 100 MG PO SCH ×2 (20:47→23:18)
[2018-01-22] MEDS: Lidocaine PATCH 5%* 1 PATCH TRANSDERM SCH (22:19)
[2018-01-23] MEDS: FLUoxetine CAP* 20 MG PO SCH (07:20)
[2018-01-23] MEDS: Acetaminophen TAB* 325 MG PO PRN ×3 (07:20→20:41)
[2018-01-23] MEDS: LORazepam TAB(*) 1 MG PO PRN ×3 (07:20→20:45)
[2018-01-23] MEDS: Gabapentin CAP(*) 300 MG PO SCH ×3 (07:20→20:43)
[2018-01-23] MEDS: Fluticasone NASAL SPRAY 50MCG* 16 gm SPRAY BTL BOTH NARES SCH (07:20)
[2018-01-23] MEDS: Omeprazole CAP* 20 MG PO SCH ×3 (07:20→20:48)
[2018-01-23] MEDS: Propranolol TAB* 20 MG PO SCH ×3 (07:20→20:48)
[2018-01-23] MEDS: Lidocaine Patch REMOVE* 1 NOTE MISC PATCH OFF SCH (07:20)
[2018-01-23] MEDS: Amphetamine MIXED SALT TAB* 10 MG TAB PO SCH ×2 (07:20→14:02)
[2018-01-23] MEDS: Cyclobenzaprine TAB* 10 MG PO PRN ×3 (07:20→20:51)
[2018-01-23] MEDS: diPHENhydraMINE PO* 50 MG PO PRN ×3 (08:01→20:53)
[2018-01-23] MEDS: Nicotine Inhaler* 10 MG AMP INH PRN ×4 (08:03→20:41)
[2018-01-23] MEDS: Lidocaine PATCH 5%* 1 PATCH TRANSDERM SCH ×3 (09:45→14:25)
--- NOTE | 2018-01-23 16:14 | PN ---
Subjective - Subjective Date of Service: 01/23/18 Service Type: [id number] Hosp care 15 min low complexity Subjective: Jenn loves to talk about too many somatic issues and medication. Focused on pain meds, anxiety meds, Adderall and so on. Wants more meds. Pressured, restless, tremulous. Review of med profile is concerning and need routine review because of risks of serious drug drug interactions and falls. Referred patient to her attending for the request of additional meds. Objective - Appearance Appearance: Healthy Appearing, Thin Framed Dysmorphic Features: No Hygiene: Normal Grooming: Fairly Well Kept - Behavior Psychomotor Activities: Abnormal-Increased Exhibits Abnormal Movement: No - Attitude and Relatedness Attitude and Relatedness: Manipulative Eye Contact: Good - Speech Quality: Pressured Latencies: Short Quantity: Copious - Mood Patient's Decription of Mood: "Terrible" - Affect Observed Affect: Expansive Affect Consistent with: Euphoria - Thought Process Patient's Thought Process: Coherent, Tangential, Filght of Ideas, Circumstantial , Over Inclusive Thought Content: No Passive Wish, No Suicidal Planning, No Homicidal Ideation, No Paranoid Ideation - Sensorium Experiencing Hallucinations: No, Sensorium is Clear Type of Hallucinations: Visual: No, Auditory: No, Command: No - Level of Consciousness Level of Consciousness: Alert Orientation: Yes Intact, Yes Orientated to Time, Yes Orientated to Place, Yes Orientated to Person - Impulse Control Impulse Control: Tenuous - Insight and Judgement Insight and Judgement: Impaired - Group Participation Particating in Group Activities: Yes - Medication Management Medication Management Adherence: Yes Assessment - Assessment Merits Inpatient Hospitalization: For Stabilization, For Ongoing Evaluation Inpatient DSM-V Dx: F43.12 Clinical Impression: Still symptomatic and somatic with drug seeking behaviors. A high risk for fall and drug-drug interaction. Patient will benefit from med. review, reduction of pill numbers and consolidation. Refer patient to [facility] if needed. Plan - Plan Treatment Plan: Name: JENN BOOKER Birthdate: 1955 [id number] Continued Medication Management: Different Medication Medications: Current Medications Acetaminophen (Tylenol Tab*) 975 mg PO Q6H PRN PRN Reason: PAIN Last Admin: 01/23/18 14:21 Dose: 975 mg Amphetamine/Dextroamphetamine (Adderall Tab*) 10 mg PO 0600,1400 [facility] Last Admin: 01/23/18 14:02 Dose: 10 mg Chlorpromazine HCl (Thorazine Tab*) 100 mg PO Q6H PRN PRN Reason: AGITATION Cyclobenzaprine HCl (Flexeril Tab*) 10 mg PO TID PRN PRN Reason: PAIN Last Admin: 01/23/18 14:21 Dose: 10 mg Device (Nicotine Mouth Piece*) 1 each INH ONCE PRN PRN Reason: CRAVING Last Admin: 01/19/18 12:40 Dose: 1 each Diphenhydramine HCl (Benadryl Po*) 50 mg PO Q6H PRN PRN Reason: anxiety/insomnia Last Admin: 01/23/18 14:02 Dose: 50 mg Fluoxetine HCl (Prozac Cap*) 20 mg PO 0600 [facility] Last Admin: 01/23/18 07:20 Dose: 20 mg Fluticasone Propionate (Flonase Nasal [place] 50mcg*) 2 spray BOTH NARES DAILY [facility] Last Admin: 01/23/18 07:20 Dose: 2 spray Gabapentin (Neurontin Cap(*)) 300 mg PO TID [facility] Last Admin: 01/23/18 14:02 Dose: 300 mg Guaifenesin (Mucinex*) 600 mg PO Q12H PRN PRN Reason: COUGH/CONGESTION Last Admin: 01/22/18 13:40 Dose: 600 mg Lidocaine (Lidoderm 5% Patch*) 1 patch TRANSDERM DAILY [facility] Last Admin: 01/23/18 14:25 Dose: 1 patch Lorazepam (Ativan Tab(*)) 1 mg PO BID PRN PRN Reason: ANXIETY Last Admin: 01/23/18 14:02 Dose: 1 mg Nicotine (Nicotine Inhaler*) 10 mg INH Q2H PRN PRN Reason: CRAVINGS Last Admin: 01/23/18 14:02 Dose: 10 mg Omeprazole (Prilosec Cap*) 20 mg PO TID [facility] Last Admin: 01/23/18 14:03 Dose: Not Given Pharmacy Profile Note (Lidocaine Patch Remove*) 1 note PATCH OFF 0600 [facility] Last Admin: 01/23/18 07:20 Dose: Not Given Propranolol HCl (Inderal Tab*) 20 mg PO TID [facility] Last Admin: 01/23/18 14:03 Dose: 20 mg Quetiapine Fumarate (Seroquel Tab*) 300 mg PO BEDTIME [facility] Last Admin: 01/22/18 23:18 Dose: 300 mg Throat Lozenges (Chloraseptic Willy*) 1 willy PO Q4H PRN PRN Reason: SORE THROAT Last Admin: 01/22/18 13:41 Dose: 1 willy - Discharge Plan Discharge Plan: Consider Longer Term Tx
[2018-01-23] MEDS: QUEtiapine TAB* 100 MG PO SCH (20:49)
[2018-01-24] MEDS: Acetaminophen TAB* 325 MG PO PRN ×3 (04:15→20:20)
[2018-01-24] MEDS: diPHENhydraMINE PO* 50 MG PO PRN ×2 (04:15→17:28)
[2018-01-24] MEDS: Gabapentin CAP(*) 300 MG PO SCH ×3 (08:22→20:15)
[2018-01-24] MEDS: Amphetamine MIXED SALT TAB* 10 MG TAB PO SCH ×2 (08:22→13:58)
[2018-01-24] MEDS: Propranolol TAB* 20 MG PO SCH ×3 (08:23→20:15)
[2018-01-24] MEDS: FLUoxetine CAP* 20 MG PO SCH (08:24)
[2018-01-24] MEDS: Lidocaine PATCH 5%* 1 PATCH TRANSDERM SCH (08:25)
[2018-01-24] MEDS: Lidocaine Patch REMOVE* 1 NOTE MISC PATCH OFF SCH (08:27)
[2018-01-24] MEDS: guaiFENesin ER TAB 600 MG PO PRN (08:31)
[2018-01-24] MEDS: Cyclobenzaprine TAB* 10 MG PO PRN ×2 (08:31→13:58)
[2018-01-24] MEDS: LORazepam TAB(*) 1 MG PO PRN ×2 (08:32→20:21)
[2018-01-24] MEDS: Nicotine Inhaler* 10 MG AMP INH PRN ×4 (08:33→21:09)
[2018-01-24] MEDS: Fluticasone NASAL SPRAY 50MCG* 16 gm SPRAY BTL BOTH NARES SCH (08:33)
--- NOTE | 2018-01-24 13:42 | PN ---
MHU: Group Therapy Note - Service Type Service Type: [id number] Group Psychotherapy - Cognitive Behavioral Group Therapy ( CBT):Patient was attentive and participatory in CBT programming this morning, and remained in good behavioral control. Patient expressed positive insights regarding relevant treatment interventions and goals.
[2018-01-24] MEDS ORDERED: LORazepam TAB(*) 0.5 MG PO ONE (14:34)
[2018-01-24] MEDS ORDERED: LORazepam TAB(*) 1 MG ONE (14:36)
--- NOTE | 2018-01-24 14:52 | PN ---
Subjective - Subjective Service Type: 01010 Hosp care 25 min moderate complexity Subjective: Patient continues to have multiple somatic complaints and is circumstantial in regards to medications. She presents as labile, irritable and guarded. Per staff, patient is not sleeping well and is disruptive in milieu. She threatens violence at times. During conversation with credit underwriter, patient noted to attend to internal stimuli. She is agreeable to lithium trial and states her friend told her she should be on it. Objective - Appearance Appearance: Well Developed/Nourished Dysmorphic Features: Yes Hygiene: Normal Grooming: Well Kept - Behavior Psychomotor Activities: Normal Exhibits Abnormal Movement: No - Attitude and Relatedness Attitude and Relatedness: Psychotically Related Eye Contact: Fair - Speech Quality: Pressured Latencies: Normal Quantity: Copious - Mood Patient's Decription of Mood: "I'm in pain!" - Affect Observed Affect: Labile Affect Consistent with: Euphoria - Thought Process Patient's Thought Process: Tangential, Circumstantial, Over Inclusive Thought Content: Yes Paranoid Ideation, No Passive Wish, No Suicidal Planning, No Homicidal Ideation - Sensorium Experiencing Hallucinations: Yes Type of Hallucinations: Visual: No, Auditory: Yes, Command: No - Level of Consciousness Level of Consciousness: Alert Orientation: Yes Intact, Yes Orientated to Time, Yes Orientated to Place, Yes Orientated to Person - Impulse Control Impulse Control: Impaired - Insight and Judgement Insight and Judgement: Impaired - Group Participation Particating in Group Activities: No - Medication Management Medication Management Adherence: Yes Assessment - Assessment Merits Inpatient Hospitalization: For Immediate Safety, For Stabilization, For Ongoing Evaluation, Consolidate Improvements Inpatient DSM-V Dx: F43.12 Clinical Impression: 62yo white female who recently located to [place] from [place], [place]. She presented to the ED with questionable psychosis and bizarre behavior. She presents as manic and psychotically related. She merits hospitalization for immediate safety, stabilization and diagnosis determination. Plan - Plan Treatment Plan: Name: SHERRIE BOOKER Birthdate: 1955 [id number] continue acute intensive psychiatric treatment. convert legal status to 2PC for continued hospitalization. add lithium for mood stabilization, increase quetiapine for psychosis. obtain EKG for medication interactions. continue other medications. consider state hospitalization if no improvement. Continued Medication Management: Start Medication Medications: Current Medications Acetaminophen (Tylenol Tab*) 975 mg PO Q6H PRN PRN Reason: PAIN Last Admin: 01/24/18 13:59 Dose: 975 mg Amphetamine/Dextroamphetamine (Adderall Tab*) 10 mg PO 0600,1400 [facility] Last Admin: 01/24/18 13:58 Dose: 10 mg Chlorpromazine HCl (Thorazine Tab*) 100 mg PO Q6H PRN PRN Reason: AGITATION Cyclobenzaprine HCl (Flexeril Tab*) 10 mg PO TID PRN PRN Reason: PAIN Last Admin: 01/24/18 13:58 Dose: 10 mg Device (Nicotine Mouth Piece*) 1 each INH ONCE PRN PRN Reason: CRAVING Last Admin: 01/19/18 12:40 Dose: 1 each Diphenhydramine HCl (Benadryl Po*) 50 mg PO Q6H PRN PRN Reason: anxiety/insomnia Last Admin: 01/24/18 04:15 Dose: 50 mg Fluticasone Propionate (Flonase Nasal [place] 50mcg*) 2 spray BOTH NARES DAILY [facility] Last Admin: 01/24/18 08:33 Dose: 2 spray Gabapentin (Neurontin Cap(*)) 300 mg PO TID [facility] Last Admin: 01/24/18 13:57 Dose: 300 mg Guaifenesin (Mucinex*) 600 mg PO Q12H PRN PRN Reason: COUGH/CONGESTION Last Admin: 01/24/18 08:31 Dose: 600 mg Lidocaine (Lidoderm 5% Patch*) 1 patch TRANSDERM DAILY [facility] Last Admin: 01/24/18 08:25 Dose: 1 patch [employer] Carbonate ([employer] Carbonate Tab*) 300 mg PO BID [facility] Lorazepam (Ativan Tab(*)) 1 mg PO BID PRN PRN Reason: ANXIETY Last Admin: 01/24/18 08:32 Dose: 1 mg Nicotine (Nicotine Inhaler*) 10 mg INH Q2H PRN PRN Reason: CRAVINGS Last Admin: 01/24/18 14:02 Dose: 10 mg Pharmacy Profile Note (Lidocaine Patch Remove*) 1 note PATCH OFF 0600 [facility] Last Admin: 01/24/18 08:27 Dose: 1 note Propranolol HCl (Inderal Tab*) 20 mg PO TID [facility] Last Admin: 01/24/18 13:56 Dose: 20 mg Quetiapine Fumarate (Seroquel Tab*) 400 mg PO BEDTIME [facility] Throat Lozenges (Chloraseptic Willy*) 1 willy PO Q4H PRN PRN Reason: SORE THROAT Last Admin: 01/22/18 13:41 Dose: 1 willy - Discharge Plan Discharge Plan: Consider Longer Term Tx
[2018-01-24] MEDS: Lithium Carbonate TAB* 300 MG PO SCH (20:15)
[2018-01-24] MEDS ORDERED: QUEtiapine TAB* 100 MG PO SCH ×2 (21:00)
[2018-01-25] MEDS: Cyclobenzaprine TAB* 10 MG PO PRN ×4 (03:00→23:30)
[2018-01-25] MEDS: diPHENhydraMINE PO* 50 MG PO PRN ×3 (03:00→20:19)
[2018-01-25] MEDS: Acetaminophen TAB* 325 MG PO PRN ×4 (03:00→22:28)
[2018-01-25] MEDS: Lidocaine Patch REMOVE* 1 NOTE MISC PATCH OFF SCH (05:54)
[2018-01-25] MEDS: Amphetamine MIXED SALT TAB* 10 MG TAB PO SCH ×2 (05:54→14:11)
[2018-01-25] MEDS: Lithium Carbonate TAB* 300 MG PO SCH (08:18)
[2018-01-25] MEDS: Gabapentin CAP(*) 300 MG PO SCH ×3 (08:18→20:13)
[2018-01-25] MEDS: Propranolol TAB* 20 MG PO SCH ×3 (08:18→20:13)
[2018-01-25] MEDS: guaiFENesin ER TAB 600 MG PO PRN (08:20)
[2018-01-25] MEDS: Fluticasone NASAL SPRAY 50MCG* 16 gm SPRAY BTL BOTH NARES SCH (08:20)
[2018-01-25] MEDS: Benzocaine/Menthol LOZ* 1 LOZENGE PO PRN ×2 (08:20→15:41)
[2018-01-25] MEDS: LORazepam TAB(*) 1 MG PO PRN ×3 (08:21→23:30)
[2018-01-25] MEDS: Nicotine Inhaler* 10 MG AMP INH PRN ×4 (08:39→19:08)
--- NOTE | 2018-01-25 11:36 | PN ---
MHU: Group Therapy Note - Service Type Service Type: [id number] Group Psychotherapy - Cognitive Behavioral Group Therapy ( CBT):Patient was attentive and participatory in CBT programming this morning, and remained in good behavioral control. Patient expressed positive insights regarding relevant treatment interventions and goals.
--- NOTE | 2018-01-25 13:57 | PN ---
Subjective - Subjective Service Type: 90130 Hosp care 25 min moderate complexity Subjective: Per staff, patient slept moreso last night. She continues to have disorganized behavior and tends to collect toiletries and other supplies in her shower. She may be cheeking medications as a pill was found in her cabinet during room searches. Patient is less agitated and irritable than yesterday. She continues to fixate on somatic complaints and demonstrates flight of ideas. Objective - Appearance Appearance: Well Developed/Nourished Dysmorphic Features: No Hygiene: Normal Grooming: Disheveled - Behavior Psychomotor Activities: Normal Exhibits Abnormal Movement: No - Attitude and Relatedness Attitude and Relatedness: Psychotically Related Eye Contact: Good - Speech Quality: Unpressured Latencies: Normal Quantity: Copious - Mood Patient's Decription of Mood: "in pain" - Affect Observed Affect: Expansive Affect Consistent with: Euphoria - Thought Process Patient's Thought Process: Filght of Ideas Thought Content: Yes Paranoid Ideation, No Passive Wish, No Suicidal Planning, No Homicidal Ideation - Sensorium Type of Hallucinations: Visual: No, Auditory: Yes, Command: No - Level of Consciousness Level of Consciousness: Alert Orientation: Yes Intact, Yes Orientated to Time, Yes Orientated to Place, Yes Orientated to Person - Impulse Control Impulse Control: Impaired - Insight and Judgement Insight and Judgement: Impaired - Group Participation Particating in Group Activities: Yes - Medication Management Medication Management Adherence: Yes Assessment - Assessment Merits Inpatient Hospitalization: For Immediate Safety, For Stabilization, Consolidate Improvements Inpatient DSM-V Dx: F43.12 Clinical Impression: 62yo white female who impulsively came to [place] from [place], [place]. She presented to the ED with questionable psychosis and bizarre behavior. She presents as manic and psychotically related. She merits hospitalization for immediate safety, stabilization and diagnosis determination. Plan - Plan Treatment Plan: Name: SHERRIE BOOKER Birthdate: 1955 [id number] continue acute intensive psychiatric treatment. continue titration of lithium for mood stabilization. DC quetiapine. add aripiprazole 15mg PO. If tolerates, consider MARK. continue other medications. obtain labs in AM: CMP, CBC and lithium level. consider state hospitalization if no improvement. Continued Medication Management: Different Medication Medications: Current Medications Acetaminophen (Tylenol Tab*) 975 mg PO Q6H PRN PRN Reason: PAIN Last Admin: 01/25/18 08:19 Dose: 975 mg Amphetamine/Dextroamphetamine (Adderall Tab*) 10 mg PO 0600,1400 [facility] Last Admin: 01/25/18 05:54 Dose: 10 mg Chlorpromazine HCl (Thorazine Tab*) 100 mg PO Q6H PRN PRN Reason: AGITATION Cyclobenzaprine HCl (Flexeril Tab*) 10 mg PO TID PRN PRN Reason: PAIN Last Admin: 01/25/18 08:19 Dose: 10 mg Device (Nicotine Mouth Piece*) 1 each INH ONCE PRN PRN Reason: CRAVING Last Admin: 01/19/18 12:40 Dose: 1 each Diphenhydramine HCl (Benadryl Po*) 50 mg PO Q6H PRN PRN Reason: anxiety/insomnia Last Admin: 01/25/18 08:20 Dose: 50 mg Fluticasone Propionate (Flonase Nasal [place] 50mcg*) 2 spray BOTH NARES DAILY [facility] Last Admin: 01/25/18 08:20 Dose: 2 spray Gabapentin (Neurontin Cap(*)) 300 mg PO TID [facility] Last Admin: 01/25/18 08:18 Dose: 300 mg Guaifenesin (Mucinex*) 600 mg PO Q12H PRN PRN Reason: COUGH/CONGESTION Last Admin: 01/25/18 08:20 Dose: 600 mg Lidocaine (Lidoderm 5% Patch*) 1 patch TRANSDERM DAILY [facility] Last Admin: 01/24/18 08:25 Dose: 1 patch [place] Carbonate ([place] Carbonate Tab*) 300 mg PO BID [facility] Last Admin: 01/25/18 08:18 Dose: 300 mg Nicotine (Nicotine Inhaler*) 10 mg INH Q2H PRN PRN Reason: CRAVINGS Last Admin: 01/25/18 12:27 Dose: 10 mg Pharmacy Profile Note (Lidocaine Patch Remove*) 1 note PATCH OFF 0600 [facility] Last Admin: 01/25/18 05:54 Dose: 1 note Propranolol HCl (Inderal Tab*) 20 mg PO TID [facility] Last Admin: 01/25/18 08:18 Dose: 20 mg Throat Lozenges (Chloraseptic Willy*) 1 willy PO Q4H PRN PRN Reason: SORE THROAT Last Admin: 01/25/18 08:20 Dose: 1 willy - Discharge Plan Discharge Plan: Consider Longer Term Tx
[2018-01-25] MEDS ORDERED: traMADol TAB* 50 MG PO PRN (15:20)
[2018-01-25] MEDS: Lidocaine PATCH 5%* 1 PATCH TRANSDERM SCH (15:22)
[2018-01-25] MEDS ORDERED: ARIPiprazole TAB* 15 MG PO SCH (21:00)
[2018-01-25] MEDS ORDERED: Lithium Carbonate TAB* 300 MG PO SCH (21:00)
[2018-01-26] MEDS: Amphetamine MIXED SALT TAB* 10 MG TAB PO SCH (05:20)
[2018-01-26] MEDS: Acetaminophen TAB* 325 MG PO PRN ×3 (05:20→23:03)
[2018-01-26] MEDS: diPHENhydraMINE PO* 50 MG PO PRN ×2 (05:20→16:12)
[2018-01-26] MEDS: Lidocaine Patch REMOVE* 1 NOTE MISC PATCH OFF SCH (06:00)
[2018-01-26] MEDS: Fluticasone NASAL SPRAY 50MCG* 16 gm SPRAY BTL BOTH NARES SCH (08:04)
[2018-01-26] MEDS: Nicotine Inhaler* 10 MG AMP INH PRN ×5 (08:05→20:32)
[2018-01-26] MEDS: Cyclobenzaprine TAB* 10 MG PO PRN ×3 (08:06→23:03)
[2018-01-26] MEDS: guaiFENesin ER TAB 600 MG PO PRN (08:06)
[2018-01-26] MEDS: Benzocaine/Menthol LOZ* 1 LOZENGE PO PRN (08:07)
[2018-01-26] MEDS: Propranolol TAB* 20 MG PO SCH ×3 (08:07→20:31)
[2018-01-26] MEDS: Gabapentin CAP(*) 300 MG PO SCH ×3 (08:08→20:31)
[2018-01-26] MEDS: LORazepam TAB(*) 1 MG PO PRN ×2 (08:08→16:13)
[2018-01-26] MEDS: Lidocaine PATCH 5%* 1 PATCH TRANSDERM SCH (08:08)
[2018-01-26] MEDS ORDERED: Lithium Carbonate TAB* 300 MG PO SCH (09:00)
[2018-01-26 10:20] LABS: ABS Basophils 0.1 10^3/ul (0-0.2); ABS Eosinophils 0.3 10^3/ul (0-0.6); ABS Lymphocytes 2.1 10^3/ul (1.0-4.8); ABS Monocytes 1.2 10^3/ul (0-0.8); ABS Nucleated RBC 0 10^3/ul; Eosinophil % 3.8 % (0-6); Hematocrit 36 % (35-47); Lymphocyte % 27.1 % (25-47); Mean Corpuscular HGB Conc 33 g/dl (31-36); Mean Corpuscular Hemoglobin 29 pg (27-31); Mean Corpuscular Volume 87 fL (80-97); Mean Platelet Volume 7.1 um3 (7.4-10.4); Nucleated Red Blood Cells % 0; Platelet Count 331 10^3/ul (150-450); Red Blood Count 4.16 10^6/ul (4.0-5.4); Red Cell Distribution Width 14 % (10.5-15); White Blood Count 7.6 10^3/ul (3.5-10.8)
[2018-01-26 10:47] LABS: EGFR Non-African American 78.6 (>60)
--- NOTE | 2018-01-26 11:28 | PN ---
MHU: Group Therapy Note - Service Type Service Type: [id number] Group Psychotherapy - Cognitive Behavioral Group Therapy ( CBT):Patient was attentive and participatory in CBT programming this morning, and remained in good behavioral control. Patient expressed positive insights regarding relevant treatment interventions and goals.
[2018-01-26] MEDS ORDERED: chlorproMAZINE TAB* 50 MG PO PRN (11:45)
[2018-01-26] MEDS ORDERED: ARIPiprazole TAB* 5 MG ONE (11:57)
[2018-01-26] MEDS ORDERED: Amphetamine MIXED SALT TAB* 10 MG TAB ONE (11:57)
[2018-01-26] MEDS: Amphetamine/Dextroamph ER(NF) 10 MG CAP.ER PO SCH (11:59)
[2018-01-26] MEDS: ARIPiprazole TAB* 15 MG PO SCH (12:00)
[2018-01-26] MEDS ORDERED: Mouth Piece, Nicotine* 1 EACH CARTRIDGE ONE (14:18)
--- NOTE | 2018-01-26 16:14 | PN ---
MHU: Group Therapy Note - Service Type Service Type: [id number] Group Psychotherapy - Medication Education Group: Patient joined group late and was intermittently in room. Patient expressed positive insights regarding relevant treatment interventions. Patient stated understanding of material discussed and had appropriate questions.
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
[2018-01-26] MEDS: chlorproMAZINE TAB* 100 MG PO SCH ×2 (20:31→20:35)
[2018-01-26] MEDS: Lithium Carbonate TAB* 300 MG PO SCH (20:32)
[2018-01-27] MEDS: LORazepam TAB(*) 1 MG PO PRN ×3 (00:17→15:47)
[2018-01-27] MEDS: diPHENhydraMINE PO* 50 MG PO PRN ×3 (00:17→19:53)
[2018-01-27] MEDS: Lidocaine Patch REMOVE* 1 NOTE MISC PATCH OFF SCH (07:58)
[2018-01-27] MEDS: Fluticasone NASAL SPRAY 50MCG* 16 gm SPRAY BTL BOTH NARES SCH (07:59)
[2018-01-27] MEDS: Lidocaine PATCH 5%* 1 PATCH TRANSDERM SCH (08:01)
[2018-01-27] MEDS: Propranolol TAB* 20 MG PO SCH ×3 (08:03→21:30)
[2018-01-27] MEDS: ARIPiprazole TAB* 15 MG PO SCH (08:03)
[2018-01-27] MEDS: Lithium Carbonate TAB* 300 MG PO SCH ×2 (08:04→21:29)
[2018-01-27] MEDS: Amphetamine/Dextroamph ER(NF) 10 MG CAP.ER PO SCH (08:06)
[2018-01-27] MEDS: Gabapentin CAP(*) 300 MG PO SCH ×3 (08:06→21:29)
[2018-01-27] MEDS: Acetaminophen TAB* 325 MG PO PRN ×3 (08:31→22:06)
[2018-01-27] MEDS: Cyclobenzaprine TAB* 10 MG PO PRN ×2 (08:32→13:22)
[2018-01-27] MEDS: Nicotine Inhaler* 10 MG AMP INH PRN ×2 (13:18→21:35)
--- NOTE | 2018-01-27 15:09 | PN ---
Subjective - Subjective Service Type: 67650 Hosp care 35 min high complexity Subjective: Yesterday, patient reports "I'm disappointed in you" blames me for being "deceptive" in regards to medication changes. She continues to fixate on somatic symptoms and need for increased dose of adderall. Patient agrees for automobile service writer to request consult from pain specialist. During conversation, automobile service writer looks to her right and states "you can't talk to this woman." We discussed potential need for longer hospitalization and referral to [facility]. She spoke with [facility] and did not give clearance. Administrative hearing held this morning. Jenn presented relatively well during admin hearing and demonstrated some improvement in comparison to beginning of hospitalization. She continues to deny need for mood stabilizer or antipsychotic but is medication compliant. Objective - Appearance Appearance: Well Developed/Nourished Dysmorphic Features: No Hygiene: Normal - Behavior Psychomotor Activities: Normal Exhibits Abnormal Movement: No - Attitude and Relatedness Attitude and Relatedness: Psychotically Related Eye Contact: Fair - Speech Quality: Unpressured Latencies: Normal Quantity: Copious - Mood Patient's Decription of Mood: "disappointed" - Affect Observed Affect: Expansive Affect Consistent with: Euphoria - Thought Process Patient's Thought Process: Filght of Ideas Thought Content: Yes Paranoid Ideation, No Passive Wish, No Suicidal Planning, No Homicidal Ideation - Sensorium Experiencing Hallucinations: Yes Type of Hallucinations: Visual: No, Auditory: Yes, Command: No - Level of Consciousness Level of Consciousness: Alert Orientation: Yes Intact, Yes Orientated to Time, Yes Orientated to Place, Yes Orientated to Person - Impulse Control Impulse Control: Tenuous - Insight and Judgement Insight and Judgement: Impaired - Group Participation Particating in Group Activities: Yes - Medication Management Medication Management Adherence: Yes Assessment - Assessment Inpatient DSM-V Dx: F43.12 Clinical Impression: 62yo white female who impulsively came to [place] from [place], [place]. She presented to the ED with questionable psychosis and bizarre behavior. She presents as manic and psychotically related. She merits hospitalization for immediate safety, stabilization and diagnosis determination. Plan - Plan Treatment Plan: Name: JENN BOOKER Birthdate: 1955 [id number] continue acute intensive psychiatric treatment. continue titration of lithium and aripiprazole. If tolerates oral antipsychotic , consider MARK. continue other medications. She is at risk of decompensation and vulnerability if discharged without intensive psychiatric treatment. Technical Service Rep gave authorization to continue treatment and referral to [facility]. Continued Medication Management: Different Medication Medications: Current Medications Acetaminophen (Tylenol Tab*) 975 mg PO Q6H PRN PRN Reason: PAIN Last Admin: 01/27/18 08:31 Dose: 975 mg Amphetamine/Dextroamphetamine (Adderal Xr (Nf)) 20 mg PO DAILY [facility] Last Admin: 01/27/18 08:06 Dose: 20 mg Aripiprazole (Abilify Tab*) 20 mg PO DAILY [facility] Chlorpromazine HCl (Thorazine Tab*) 50 mg PO Q6H PRN PRN Reason: AGITATION Chlorpromazine HCl (Thorazine Tab*) 100 mg PO BEDTIME [facility] Last Admin: 01/26/18 20:35 Dose: Not Given Cyclobenzaprine HCl (Flexeril Tab*) 10 mg PO Q8H PRN PRN Reason: PAIN Device (Nicotine Mouth Piece*) 1 each INH ONCE PRN PRN Reason: CRAVING Last Admin: 01/19/18 12:40 Dose: 1 each Diphenhydramine HCl (Benadryl Po*) 50 mg PO Q6H PRN PRN Reason: anxiety/insomnia Last Admin: 01/27/18 08:05 Dose: 50 mg Fluticasone Propionate (Flonase Nasal [place] 50mcg*) 2 spray BOTH NARES DAILY [facility] Last Admin: 01/27/18 07:59 Dose: 2 spray Gabapentin (Neurontin Cap(*)) 300 mg PO TID [facility] Last Admin: 01/27/18 13:18 Dose: 300 mg Guaifenesin (Mucinex*) 600 mg PO Q12H PRN PRN Reason: COUGH/CONGESTION Last Admin: 01/26/18 08:06 Dose: 600 mg Lidocaine (Lidoderm 5% Patch*) 1 patch TRANSDERM DAILY [facility] Last Admin: 01/27/18 08:01 Dose: 1 patch [place] Carbonate ([place] Carbonate Tab*) 600 mg PO BID [facility] Last Admin: 01/27/18 08:04 Dose: 600 mg Lorazepam (Ativan Tab(*)) 1 mg PO Q8H PRN PRN Reason: ANXIETY Last Admin: 01/27/18 08:33 Dose: 1 mg Nicotine (Nicotine Inhaler*) 10 mg INH Q2H PRN PRN Reason: CRAVINGS Last Admin: 01/27/18 13:18 Dose: 10 mg Pharmacy Profile Note (Lidocaine Patch Remove*) 1 note PATCH OFF 0600 [facility] Last Admin: 01/27/18 07:58 Dose: Not Given Propranolol HCl (Inderal Tab*) 20 mg PO TID [facility] Last Admin: 01/27/18 13:20 Dose: 20 mg Throat Lozenges (Chloraseptic Willy*) 1 willy PO Q4H PRN PRN Reason: SORE THROAT Last Admin: 01/26/18 08:07 Dose: 1 willy - Discharge Plan Discharge Plan: Consider Longer Term Tx
[2018-01-27] MEDS: chlorproMAZINE TAB* 100 MG PO SCH (21:30)
[2018-01-28] MEDS: Acetaminophen TAB* 325 MG PO PRN ×2 (05:12→12:42)
[2018-01-28] MEDS: diPHENhydraMINE PO* 50 MG PO PRN (05:13)
[2018-01-28] MEDS: Amphetamine/Dextroamph ER(NF) 10 MG CAP.ER PO SCH (08:02)
[2018-01-28] MEDS: Propranolol TAB* 20 MG PO SCH ×3 (08:02→20:24)
[2018-01-28] MEDS: ARIPiprazole TAB* 20 MG PO SCH (08:02)
[2018-01-28] MEDS: Lithium Carbonate TAB* 300 MG PO SCH ×2 (08:03→20:25)
[2018-01-28] MEDS: Fluticasone NASAL SPRAY 50MCG* 16 gm SPRAY BTL BOTH NARES SCH (08:03)
[2018-01-28] MEDS: Gabapentin CAP(*) 300 MG PO SCH ×3 (08:03→20:23)
[2018-01-28] MEDS: LORazepam TAB(*) 1 MG PO PRN ×3 (08:05→17:47)
[2018-01-28] MEDS: Mouth Piece, Nicotine* 1 EACH CARTRIDGE ONE ×2 (08:15→11:18)
[2018-01-28] MEDS: Mouth Piece, Nicotine* 1 EACH CARTRIDGE INH PRN (08:15)
[2018-01-28] MEDS: Nicotine Inhaler* 10 MG AMP INH PRN ×4 (08:15→20:25)
[2018-01-28] MEDS: Lidocaine PATCH 5%* 1 PATCH TRANSDERM SCH (08:16)
[2018-01-28] MEDS: Lidocaine Patch REMOVE* 1 NOTE MISC PATCH OFF SCH (08:19)
[2018-01-28] MEDS: Cyclobenzaprine TAB* 10 MG PO PRN ×2 (12:42→20:24)
[2018-01-28] MEDS: chlorproMAZINE TAB* 100 MG PO SCH (21:04)
[2018-01-29] MEDS: Fluticasone NASAL SPRAY 50MCG* 16 gm SPRAY BTL BOTH NARES SCH (09:00)
[2018-01-29] MEDS: Propranolol TAB* 20 MG PO SCH ×3 (09:00→20:05)
[2018-01-29] MEDS: Amphetamine/Dextroamph ER(NF) 10 MG CAP.ER PO SCH (09:00)
[2018-01-29] MEDS: Lithium Carbonate TAB* 300 MG PO SCH ×2 (09:01→20:04)
[2018-01-29] MEDS: ARIPiprazole TAB* 20 MG PO SCH (09:01)
[2018-01-29] MEDS: Lidocaine PATCH 5%* 1 PATCH TRANSDERM SCH (09:01)
[2018-01-29] MEDS: Gabapentin CAP(*) 300 MG PO SCH ×3 (09:01→20:05)
[2018-01-29] MEDS: Benzocaine/Menthol LOZ* 1 LOZENGE PO PRN (09:06)
[2018-01-29] MEDS: Nicotine Inhaler* 10 MG AMP INH PRN ×2 (09:06→13:31)
[2018-01-29] MEDS: diPHENhydraMINE PO* 50 MG PO PRN ×3 (09:06→23:56)
[2018-01-29] MEDS: Lidocaine Patch REMOVE* 1 NOTE MISC PATCH OFF SCH (09:08)
[2018-01-29] MEDS: Acetaminophen TAB* 325 MG PO PRN ×3 (09:10→23:57)
[2018-01-29] MEDS: LORazepam TAB(*) 1 MG PO PRN ×2 (13:31→21:51)
[2018-01-29] MEDS: chlorproMAZINE TAB* 100 MG PO SCH ×2 (20:05→20:08)
[2018-01-30] MEDS: Acetaminophen TAB* 325 MG PO PRN ×3 (06:15→20:11)
[2018-01-30] MEDS: LORazepam TAB(*) 1 MG PO PRN ×3 (06:15→22:23)
[2018-01-30] MEDS: Lidocaine Patch REMOVE* 1 NOTE MISC PATCH OFF SCH (06:15)
[2018-01-30] MEDS: Amphetamine/Dextroamph ER(NF) 10 MG CAP.ER PO SCH (08:14)
[2018-01-30] MEDS: Propranolol TAB* 20 MG PO SCH ×3 (08:14→20:11)
[2018-01-30] MEDS: Gabapentin CAP(*) 300 MG PO SCH ×3 (08:15→20:11)
[2018-01-30] MEDS: ARIPiprazole TAB* 20 MG PO SCH (08:15)
[2018-01-30] MEDS: Lithium Carbonate TAB* 300 MG PO SCH ×2 (08:16→20:11)
[2018-01-30] MEDS: Fluticasone NASAL SPRAY 50MCG* 16 gm SPRAY BTL BOTH NARES SCH (08:16)
[2018-01-30] MEDS: Lidocaine PATCH 5%* 1 PATCH TRANSDERM SCH (08:18)
[2018-01-30] MEDS: Mouth Piece, Nicotine* 1 EACH CARTRIDGE INH PRN (08:21)
[2018-01-30] MEDS ORDERED: Mouth Piece, Nicotine* 1 EACH CARTRIDGE ONE (08:21)
[2018-01-30] MEDS: Nicotine Inhaler* 10 MG AMP INH PRN (08:22)
--- NOTE | 2018-01-30 11:48 | PN ---
MHU: Group Therapy Note - Service Type Service Type: 83210 Group Psychotherapy - Cognitive Behavioral Group Therapy ( CBT):Patient was attentive and participatory in CBT programming this morning, and remained in good behavioral control. Patient expressed positive insights regarding relevant treatment interventions and goals.
--- NOTE | 2018-01-30 15:14 | PN ---
Subjective - Subjective Date of Service: 01/30/18 Service Type: [id number] Hosp care 25 min moderate complexity Subjective: Patient continues to fixate on somatic complaints. She states that her shoulders are in pain due to past surgical interventions. Radio Frequency Engineer attempts to discuss current psychopharmacology and she states "i'm not interested in talking about medications." She goes on to discuss need for cyclobenzaprine and acetaminophen. Patient states her daughter called today but patient was unable to talk with her due to pain. Radio Frequency Engineer attempts to discuss how emotional pain presents as physical pain. Patient interrupts and states "when you fix my shoulders then you can talk to me about your daughter." She then gets up and walks away. Objective - Appearance Appearance: Well Developed/Nourished Dysmorphic Features: Yes Hygiene: Normal Grooming: Well Kept - Behavior Psychomotor Activities: Normal Exhibits Abnormal Movement: No - Attitude and Relatedness Attitude and Relatedness: Irritable Eye Contact: Fair - Speech Quality: Unpressured Latencies: Normal Quantity: Copious - Mood Patient's Decription of Mood: "Upset" - Affect Observed Affect: Expansive Affect Consistent with: Euphoria - Thought Process Patient's Thought Process: Disorganized, Tangential Thought Content: Yes Paranoid Ideation, No Passive Wish, No Suicidal Planning, No Homicidal Ideation - Sensorium Experiencing Hallucinations: No, Sensorium is Clear Type of Hallucinations: Visual: No, Auditory: No, Command: No - Level of Consciousness Level of Consciousness: Alert Orientation: Yes Intact, Yes Orientated to Time, Yes Orientated to Place, Yes Orientated to Person - Impulse Control Impulse Control: Impaired - Insight and Judgement Insight and Judgement: Impaired - Group Participation Particating in Group Activities: Yes - Medication Management Medication Management Adherence: Partial Assessment - Assessment Merits Inpatient Hospitalization: For Immediate Safety, For Stabilization Inpatient DSM-V Dx: F43.12 Clinical Impression: 62yo white female who impulsively came to [place] from [place], [place]. She presented to the ED with questionable psychosis and bizarre behavior. She presents as delusional and disorganized. Since presentation, records denote history of schizoaffective disorder with poor adherence to outpatient treatment. She merits hospitalization for immediate safety, stabilization and referral to [facility]. Plan - Plan Treatment Plan: Name: SHERRIE BOOKER Birthdate: 1955 [id number] continue acute intensive psychiatric treatment. continue titration of lithium and aripiprazole. If tolerates oral antipsychotic , consider MARK. continue other medications. She is at risk of decompensation and vulnerability if discharged without intensive psychiatric treatment. Compensation Administrator gave authorization to continue treatment and referral to [facility]. obtain lithium level on am of 01/31/18. Continued Medication Management: Start Medication Medications: Current Medications Acetaminophen (Tylenol Tab*) 975 mg PO Q6H PRN PRN Reason: PAIN Last Admin: 01/30/18 13:09 Dose: 975 mg Amphetamine/Dextroamphetamine (Adderal Xr (Nf)) 20 mg PO DAILY [facility] Last Admin: 01/30/18 08:14 Dose: 20 mg Aripiprazole (Abilify Tab*) 20 mg PO DAILY [facility] Last Admin: 01/30/18 08:15 Dose: 20 mg Chlorpromazine HCl (Thorazine Tab*) 50 mg PO Q6H PRN PRN Reason: AGITATION Chlorpromazine HCl (Thorazine Tab*) 100 mg PO BEDTIME [facility] Last Admin: 01/29/18 20:08 Dose: Not Given Cyclobenzaprine HCl (Flexeril Tab*) 10 mg PO BID PRN PRN Reason: PAIN Device (Nicotine Mouth Piece*) 1 each INH ONCE PRN PRN Reason: CRAVING Last Admin: 01/30/18 08:21 Dose: 1 each Diphenhydramine HCl (Benadryl Po*) 50 mg PO Q6H PRN PRN Reason: anxiety/insomnia Last Admin: 01/29/18 23:56 Dose: 50 mg Fluticasone Propionate (Flonase Nasal [place] 50mcg*) 2 spray BOTH NARES DAILY [facility] Last Admin: 01/30/18 08:16 Dose: 2 spray Gabapentin (Neurontin Cap(*)) 300 mg PO TID [facility] Last Admin: 01/30/18 14:14 Dose: 300 mg Guaifenesin (Mucinex*) 600 mg PO Q12H PRN PRN Reason: COUGH/CONGESTION Last Admin: 01/26/18 08:06 Dose: 600 mg Lidocaine (Lidoderm 5% Patch*) 1 patch TRANSDERM DAILY [facility] Last Admin: 01/30/18 08:18 Dose: Not Given [place] Carbonate ([place] Carbonate Tab*) 600 mg PO BID [facility] Last Admin: 01/30/18 08:16 Dose: 600 mg Lorazepam (Ativan Tab(*)) 1 mg PO Q8H PRN PRN Reason: ANXIETY Last Admin: 01/30/18 14:14 Dose: 1 mg Nicotine (Nicotine Inhaler*) 10 mg INH Q2H PRN PRN Reason: CRAVINGS Last Admin: 01/30/18 08:22 Dose: 10 mg Pharmacy Profile Note (Lidocaine Patch Remove*) 1 note PATCH OFF 0600 [facility] Last Admin: 01/30/18 06:15 Dose: Not Given Propranolol HCl (Inderal Tab*) 20 mg PO TID [facility] Last Admin: 01/30/18 14:14 Dose: 20 mg Throat Lozenges (Chloraseptic Willy*) 1 willy PO Q4H PRN PRN Reason: SORE THROAT Last Admin: 01/29/18 09:06 Dose: 1 willy - Discharge Plan Discharge Plan: Consider Longer Term Tx
[2018-01-30] MEDS: Cyclobenzaprine TAB* 10 MG PO PRN ×2 (16:22→23:55)
[2018-01-30] MEDS: diPHENhydraMINE PO* 50 MG PO PRN (20:11)
[2018-01-30] MEDS: chlorproMAZINE TAB* 100 MG PO SCH (20:14)
[2018-01-31] MEDS: diPHENhydraMINE PO* 50 MG PO PRN ×3 (03:45→19:10)
[2018-01-31] MEDS: Nicotine Inhaler* 10 MG AMP INH PRN ×3 (03:45→14:07)
[2018-01-31] MEDS: Acetaminophen TAB* 325 MG PO PRN ×4 (03:45→22:59)
[2018-01-31] MEDS: LORazepam TAB(*) 1 MG PO PRN ×3 (05:45→22:10)
[2018-01-31] MEDS: Lidocaine Patch REMOVE* 1 NOTE MISC PATCH OFF SCH (06:00)
[2018-01-31] MEDS: Amphetamine/Dextroamph ER(NF) 10 MG CAP.ER PO SCH (10:02)
[2018-01-31] MEDS: Propranolol TAB* 20 MG PO SCH ×3 (10:02→20:39)
[2018-01-31] MEDS: ARIPiprazole TAB* 20 MG PO SCH (10:03)
[2018-01-31] MEDS: Gabapentin CAP(*) 300 MG PO SCH ×3 (10:04→20:39)
[2018-01-31] MEDS: Fluticasone NASAL SPRAY 50MCG* 16 gm SPRAY BTL BOTH NARES SCH (10:04)
[2018-01-31] MEDS: Lidocaine PATCH 5%* 1 PATCH TRANSDERM SCH (10:05)
--- NOTE | 2018-01-31 10:29 | PN ---
Subjective - Subjective Date of Service: 01/31/18 Service Type: [id number] Hosp care 25 min moderate complexity Subjective: Patient notified of elevated lithium level and plan to hold lithium today. Encouraged to increase fluids and provided with gatorade. Patient endorses drowsiness but is observed to be awake and alert. Denies N/V/D and normal gait noted. During conversation, patient circumstantial in regards to generalized pain, timing of cyclobenzaprine and need for MRI of left knee. Per staff, patient is intrusive to peers' rooms despite multiple redirection. Patient clogged toilet with adult depends and destructive in comfort room. Objective - Appearance Appearance: Well Developed/Nourished Dysmorphic Features: No Hygiene: Normal Grooming: Fairly Well Kept - Behavior Psychomotor Activities: Normal Exhibits Abnormal Movement: No - Attitude and Relatedness Attitude and Relatedness: Child Like Eye Contact: Fair - Speech Quality: Pressured Latencies: Normal Quantity: Copious - Mood Patient's Decription of Mood: "Anxious" - Affect Observed Affect: Expansive - Thought Process Patient's Thought Process: Disorganized, Tangential, Circumstantial Thought Content: Yes Paranoid Ideation, No Passive Wish, No Suicidal Planning, No Homicidal Ideation - Sensorium Experiencing Hallucinations: No, Sensorium is Clear Type of Hallucinations: Visual: No, Auditory: No, Command: No - Level of Consciousness Level of Consciousness: Alert Orientation: Yes Intact, Yes Orientated to Time, Yes Orientated to Place, Yes Orientated to Person - Impulse Control Impulse Control: Impaired - Insight and Judgement Insight and Judgement: Impaired - Group Participation Particating in Group Activities: Yes - Medication Management Medication Management Adherence: Yes Assessment - Assessment Merits Inpatient Hospitalization: For Immediate Safety, For Stabilization, Consolidate Improvements Inpatient DSM-V Dx: F43.12 Clinical Impression: 62yo white female who impulsively came to [place] from [place], [place]. She presented to the ED with questionable psychosis and bizarre behavior. She presents as delusional and disorganized. Since presentation, records denote history of schizoaffective disorder with poor adherence to outpatient treatment. She merits hospitalization for immediate safety, stabilization and referral to [facility] area. Plan - Plan Treatment Plan: Name: SHERRIE BOOKER Birthdate: 1955 [id number] continue acute intensive psychiatric treatment. hold lithium. offer abilify maintenna MARK. continue other medications. She is at risk of decompensation and vulnerability if discharged without intensive psychiatric treatment. Powered Bridge Specialist gave authorization to continue treatment and referral to [facility]. Referral pending. obtain lithium level on am of 01/31/18. Continued Medication Management: Start Medication Medications: Current Medications Acetaminophen (Tylenol Tab*) 975 mg PO Q6H PRN PRN Reason: PAIN Last Admin: 01/31/18 10:03 Dose: 975 mg Amphetamine/Dextroamphetamine (Adderal Xr (Nf)) 20 mg PO DAILY [facility] Last Admin: 01/31/18 10:02 Dose: 20 mg Aripiprazole (Abilify Tab*) 20 mg PO DAILY [facility] Last Admin: 01/31/18 10:03 Dose: 20 mg Chlorpromazine HCl (Thorazine Tab*) 50 mg PO Q6H PRN PRN Reason: AGITATION Chlorpromazine HCl (Thorazine Tab*) 100 mg PO BEDTIME [facility] Last Admin: 01/30/18 20:14 Dose: Not Given Cyclobenzaprine HCl (Flexeril Tab*) 10 mg PO BID PRN PRN Reason: PAIN Last Admin: 01/30/18 23:55 Dose: 10 mg Device (Nicotine Mouth Piece*) 1 each INH ONCE PRN PRN Reason: CRAVING Last Admin: 01/30/18 08:21 Dose: 1 each Diphenhydramine HCl (Benadryl Po*) 50 mg PO Q6H PRN PRN Reason: anxiety/insomnia Last Admin: 01/31/18 10:03 Dose: 50 mg Fluticasone Propionate (Flonase Nasal [place] 50mcg*) 2 spray BOTH NARES DAILY [facility] Last Admin: 01/31/18 10:04 Dose: 2 spray Gabapentin (Neurontin Cap(*)) 300 mg PO TID [facility] Last Admin: 01/31/18 10:04 Dose: 300 mg Guaifenesin (Mucinex*) 600 mg PO Q12H PRN PRN Reason: COUGH/CONGESTION Last Admin: 01/26/18 08:06 Dose: 600 mg Lidocaine (Lidoderm 5% Patch*) 1 patch TRANSDERM DAILY [facility] Last Admin: 01/31/18 10:05 Dose: Not Given Lorazepam (Ativan Tab(*)) 1 mg PO Q8H PRN PRN Reason: ANXIETY Last Admin: 01/31/18 05:45 Dose: 1 mg Nicotine (Nicotine Inhaler*) 10 mg INH Q2H PRN PRN Reason: CRAVINGS Last Admin: 01/31/18 10:04 Dose: 10 mg Pharmacy Profile Note (Lidocaine Patch Remove*) 1 note PATCH OFF 06 [facility] Last Admin: 01/31/18 06:00 Dose: Not Given Propranolol HCl (Inderal Tab*) 20 mg PO TID [facility] Last Admin: 01/31/18 10:02 Dose: 20 mg Throat Lozenges (Chloraseptic Willy*) 1 willy PO Q4H PRN PRN Reason: SORE THROAT Last Admin: 01/29/18 09:06 Dose: 1 willy - Discharge Plan Discharge Plan: Consider Longer Term Tx
[2018-01-31] MEDS: Cyclobenzaprine TAB* 10 MG PO PRN ×2 (16:53→23:30)
[2018-01-31] MEDS: chlorproMAZINE TAB* 100 MG PO SCH (20:38)
[2018-01-31] MEDS: Benzocaine/Menthol LOZ* 1 LOZENGE PO PRN (21:20)
[2018-02-01] MEDS: Acetaminophen TAB* 325 MG PO PRN ×3 (05:20→20:31)
[2018-02-01] MEDS: Lidocaine Patch REMOVE* 1 NOTE MISC PATCH OFF SCH (07:32)
[2018-02-01] MEDS: Fluticasone NASAL SPRAY 50MCG* 16 gm SPRAY BTL BOTH NARES SCH (08:04)
[2018-02-01] MEDS: Gabapentin CAP(*) 300 MG PO SCH ×3 (08:05→20:36)
[2018-02-01] MEDS: Amphetamine/Dextroamph ER(NF) 10 MG CAP.ER PO SCH (08:06)
[2018-02-01] MEDS: ARIPiprazole TAB* 20 MG PO SCH (08:06)
[2018-02-01] MEDS: Propranolol TAB* 20 MG PO SCH ×3 (08:07→20:36)
[2018-02-01] MEDS: Cyclobenzaprine TAB* 10 MG PO PRN ×2 (08:09→17:09)
[2018-02-01] MEDS: Lidocaine PATCH 5%* 1 PATCH TRANSDERM SCH (08:21)
[2018-02-01 09:29] LABS: Hematocrit 36 % (35-47); Hemoglobin 11.9 g/dl (12.0-16.0); Mean Corpuscular HGB Conc 33 g/dl (31-36); Mean Corpuscular Hemoglobin 29 pg (27-31); Mean Corpuscular Volume 87 fL (80-97); Mean Platelet Volume 6.9 um3 (7.4-10.4); Platelet Count 366 10^3/ul (150-450); Red Blood Count 4.14 10^6/ul (4.0-5.4); Red Cell Distribution Width 14 % (10.5-15); White Blood Count 12.1 10^3/ul (3.5-10.8)
[2018-02-01 09:54] LABS: EGFR Non-African American 85.1 (>60)
[2018-02-01 10:05] LABS: ABS Basophils 0 10^3/ul (0-0.2); ABS Eosinophils 0.5 10^3/ul (0-0.6); ABS Lymphocytes 2.1 10^3/ul (1.0-4.8); ABS Monocytes 1.8 10^3/ul (0-0.8); ABS Neutrophils 7.7 10^3/ul (1.5-7.7); ABS Nucleated RBC 0 10^3/ul; Lymphocyte % 17.6 % (25-47); Nucleated Red Blood Cells % 0.1
[2018-02-01] MEDS: LORazepam TAB(*) 1 MG PO PRN ×2 (12:13→20:31)
--- NOTE | 2018-02-01 16:26 | PN ---
Subjective - Subjective Date of Service: 02/02/18 Service Type: [id number] Hosp care 25 min moderate complexity Subjective: 02/01/18: Patient's daughter, Angelica visited over lunch hour. See note by Fanta Ndiaye LMSW in regards to collateral information. Marine Service Manager attempted to process visit with patient in afternoon. Patient presented as suspicious and deflected anger. She demonstrated ideas of reference. She reported vague conversations with various doctors that contradict conventional underwriter's assessments and medication regimen. 02/02/18: Patient slept poorly last night and had multiple complaints of physical symptoms. During private conversation with conventional underwriter, patient was tearful and discussed her interactions with her daughter yesterday. Patient endorses guilt over comments made (asking Angelica to engage in baby talk). Patient shows conventional underwriter information about individuation/separation from [place] and states that she was never able to do so as her mother . Patient states that she needs to individuate then will no longer need adderall or other psychiatric medications. Marine Service Manager praised patient for communicating about painful topics. Objective - Appearance Appearance: Well Developed/Nourished Dysmorphic Features: Yes Hygiene: Normal Grooming: Well Kept - Behavior Psychomotor Activities: Normal Exhibits Abnormal Movement: No - Attitude and Relatedness Attitude and Relatedness: Irritable Eye Contact: Fair - Speech Quality: Unpressured Latencies: Normal Quantity: Copious - Affect Observed Affect: Expansive - Thought Process Patient's Thought Process: Loose Associations, Tangential Thought Content: Yes Paranoid Ideation, No Passive Wish, No Suicidal Planning, No Homicidal Ideation - Sensorium Experiencing Hallucinations: Yes Type of Hallucinations: Visual: No, Auditory: Yes, Command: No - Level of Consciousness Level of Consciousness: Alert Orientation: Yes Intact, Yes Orientated to Time, Yes Orientated to Place, Yes Orientated to Person - Impulse Control Impulse Control: Poor - Insight and Judgement Insight and Judgement: Impaired - Group Participation Particating in Group Activities: Yes - Medication Management Medication Management Adherence: Partial Assessment - Assessment Merits Inpatient Hospitalization: For Immediate Safety, For Stabilization, For Ongoing Evaluation, Consolidate Improvements Inpatient DSM-V Dx: F43.12 Clinical Impression: 62yo white female who impulsively came to [place] from [place], [place]. She presented to the ED with questionable psychosis and bizarre behavior. She presents as delusional and disorganized. Since presentation, records denote history of schizoaffective disorder with poor adherence to outpatient treatment. She merits hospitalization for immediate safety, stabilization and referral to [place] area. Plan - Plan Treatment Plan: Name: SHERRIE BOOKER Birthdate: 1955 [id number] continue acute intensive psychiatric treatment. hold lithium. offer abilify maintenna MARK. continue other medications. She is at risk of decompensation and vulnerability if discharged without intensive psychiatric treatment. Casting Inspector gave authorization to continue treatment and referral to [facility]. Referral pending. obtain lithium level on am of 01/31/18. Continued Medication Management: Different Medication Medications: Current Medications Acetaminophen (Tylenol Tab*) 975 mg PO Q6H PRN PRN Reason: PAIN Last Admin: 02/01/18 14:30 Dose: 975 mg Amphetamine/Dextroamphetamine (Adderal Xr (Nf)) 20 mg PO DAILY [facility] Last Admin: 02/01/18 08:06 Dose: 20 mg Aripiprazole (Abilify Tab*) 20 mg PO DAILY [facility] Stop: 02/06/18 12:00 Last Admin: 02/01/18 08:06 Dose: Not Given Aripiprazole (Abilify Maintena (Nf)) 400 mg IM Q28D [facility] Last Admin: 01/31/18 16:12 Dose: 400 mg Chlorpromazine HCl (Thorazine Tab*) 50 mg PO Q6H PRN PRN Reason: AGITATION Chlorpromazine HCl (Thorazine Tab*) 100 mg PO BEDTIME [facility] Last Admin: 01/31/18 20:38 Dose: Not Given Cyclobenzaprine HCl (Flexeril Tab*) 10 mg PO BID PRN PRN Reason: PAIN Last Admin: 02/01/18 08:09 Dose: 10 mg Device (Nicotine Mouth Piece*) 1 each INH ONCE PRN PRN Reason: CRAVING Last Admin: 01/30/18 08:21 Dose: 1 each Diphenhydramine HCl (Benadryl Po*) 50 mg PO Q6H PRN PRN Reason: anxiety/insomnia Last Admin: 01/31/18 19:10 Dose: 50 mg Fluticasone Propionate (Flonase Nasal [place] 50mcg*) 2 spray BOTH NARES DAILY [facility] Last Admin: 02/01/18 08:04 Dose: 2 spray Gabapentin (Neurontin Cap(*)) 300 mg PO TID [facility] Last Admin: 02/01/18 14:01 Dose: 300 mg Guaifenesin (Mucinex*) 600 mg PO Q12H PRN PRN Reason: COUGH/CONGESTION Last Admin: 01/26/18 08:06 Dose: 600 mg Lidocaine (Lidoderm 5% Patch*) 1 patch TRANSDERM DAILY [facility] Last Admin: 02/01/18 08:21 Dose: Not Given Lorazepam (Ativan Tab(*)) 1 mg PO Q8H PRN PRN Reason: ANXIETY Last Admin: 02/01/18 12:13 Dose: 1 mg Nicotine (Nicotine Inhaler*) 10 mg INH Q2H PRN PRN Reason: CRAVINGS Last Admin: 01/31/18 14:07 Dose: 10 mg Pharmacy Profile Note (Lidocaine Patch Remove*) 1 note PATCH OFF 0600 [facility] Last Admin: 02/01/18 07:32 Dose: Not Given Propranolol HCl (Inderal Tab*) 20 mg PO TID [facility] Last Admin: 02/01/18 14:01 Dose: 20 mg Throat Lozenges (Chloraseptic Willy*) 1 willy PO Q4H PRN PRN Reason: SORE THROAT Last Admin: 01/31/18 21:20 Dose: 1 willy - Discharge Plan Discharge Plan: Consider Longer Term Tx
[2018-02-01] MEDS: diPHENhydraMINE PO* 50 MG PO PRN ×2 (17:13→23:45)
[2018-02-01] MEDS: chlorproMAZINE TAB* 100 MG PO SCH (21:32)
[2018-02-01] MEDS: Benzocaine/Menthol LOZ* 1 LOZENGE PO PRN (21:34)
[2018-02-01] MEDS: Nicotine Inhaler* 10 MG AMP INH PRN (23:45)
[2018-02-02] MEDS: Acetaminophen TAB* 325 MG PO PRN ×3 (02:22→18:08)
[2018-02-02] MEDS: Benzocaine/Menthol LOZ* 1 LOZENGE PO PRN (03:51)
[2018-02-02] MEDS: Fluticasone NASAL SPRAY 50MCG* 16 gm SPRAY BTL BOTH NARES SCH (08:03)
[2018-02-02] MEDS: ARIPiprazole TAB* 20 MG PO SCH (08:03)
[2018-02-02] MEDS: Gabapentin CAP(*) 300 MG PO SCH ×2 (08:03→14:57)
[2018-02-02] MEDS: Amphetamine/Dextroamph ER(NF) 10 MG CAP.ER PO SCH (08:03)
[2018-02-02] MEDS: Propranolol TAB* 20 MG PO SCH ×3 (08:04→20:16)
[2018-02-02] MEDS: Cyclobenzaprine TAB* 10 MG PO PRN ×2 (08:05→20:20)
[2018-02-02] MEDS: Lidocaine Patch REMOVE* 1 NOTE MISC PATCH OFF SCH (08:08)
[2018-02-02] MEDS: Lidocaine PATCH 5%* 1 PATCH TRANSDERM SCH ×2 (10:20→15:04)
[2018-02-02] MEDS: LORazepam TAB(*) 1 MG PO PRN ×2 (12:03→20:20)
[2018-02-02] MEDS: diPHENhydraMINE PO* 50 MG PO PRN ×2 (16:14→22:17)
--- NOTE | 2018-02-02 16:23 | PN ---
[facility]: Group Therapy Note - Service Type Service Type: [id number] Group Psychotherapy - Medication Education Group: Patient joined group late, remained in behavioral control. Patient noted to be circumstantial about substances that were not particularly on topic.
[2018-02-02] MEDS: chlorproMAZINE TAB* 100 MG PO SCH (20:15)
[2018-02-02] MEDS: Gabapentin CAP(*) 400 MG PO SCH (20:16)
[2018-02-02] MEDS: Mouth Piece, Nicotine* 1 EACH CARTRIDGE INH PRN (20:27)
[2018-02-02] MEDS ORDERED: Mouth Piece, Nicotine* 1 EACH CARTRIDGE ONE (20:27)
[2018-02-02] MEDS: Nicotine Inhaler* 10 MG AMP INH PRN (20:27)
[2018-02-03] MEDS: Acetaminophen TAB* 325 MG PO PRN ×3 (05:52→20:22)
[2018-02-03] MEDS: LORazepam TAB(*) 1 MG PO PRN ×2 (05:52→16:39)
[2018-02-03] MEDS: Amphetamine/Dextroamph ER(NF) 10 MG CAP.ER PO SCH (08:01)
[2018-02-03] MEDS: diPHENhydraMINE PO* 50 MG PO PRN ×2 (08:01→18:47)
[2018-02-03] MEDS: Gabapentin CAP(*) 400 MG PO SCH ×3 (08:02→20:16)
[2018-02-03] MEDS: Nicotine Inhaler* 10 MG AMP INH PRN (08:02)
[2018-02-03] MEDS: Cyclobenzaprine TAB* 10 MG PO PRN (08:02)
[2018-02-03] MEDS: Propranolol TAB* 20 MG PO SCH ×3 (08:03→20:21)
[2018-02-03] MEDS: Fluticasone NASAL SPRAY 50MCG* 16 gm SPRAY BTL BOTH NARES SCH (08:03)
[2018-02-03] MEDS: ARIPiprazole TAB* 20 MG PO SCH (08:03)
[2018-02-03] MEDS: Lidocaine Patch REMOVE* 1 NOTE MISC PATCH OFF SCH (08:04)
[2018-02-03] MEDS: Lidocaine PATCH 5%* 1 PATCH TRANSDERM SCH (09:07)
[2018-02-03] MEDS: Benzocaine/Menthol LOZ* 1 LOZENGE PO PRN (13:36)
--- NOTE | 2018-02-03 16:41 | PN ---
Subjective - Subjective Date of Service: 02/03/18 Service Type: [id number] Hosp care 25 min moderate complexity Subjective: Patient was disorganized and slept poorly last night. She is noted to have poor boundaries with peers and gave them her medications (throat lozenge and nicotine replacement). She is tearful when discussing relationship with daughter and validated for discussing her emotions. Wealth Management Consultant encourages use of thorazine to promote sleep in order to regain comfort room and staff pass privileges. Patient states she was told to "never take the zines" due to an allergic reaction. She blames her inability to sleep on PTSD and staff who should be drug tested. Objective - Appearance Appearance: Well Developed/Nourished Dysmorphic Features: Yes Hygiene: Normal Grooming: Well Kept - Behavior Psychomotor Activities: Normal Exhibits Abnormal Movement: No - Attitude and Relatedness Attitude and Relatedness: Psychotically Related Eye Contact: Good - Speech Quality: Unpressured Latencies: Normal Quantity: Copious - Mood Patient's Decription of Mood: "Great" - Affect Observed Affect: Expansive Affect Consistent with: Euphoria - Thought Process Patient's Thought Process: Loose Associations, Tangential, Circumstantial Thought Content: Yes Paranoid Ideation, No Passive Wish, No Suicidal Planning, No Homicidal Ideation - Sensorium Experiencing Hallucinations: Yes Type of Hallucinations: Visual: No, Auditory: Yes, Command: No - Level of Consciousness Level of Consciousness: Alert Orientation: Yes Intact, Yes Orientated to Time, Yes Orientated to Place, Yes Orientated to Person - Impulse Control Impulse Control: Impaired - Insight and Judgement Insight and Judgement: Impaired - Group Participation Particating in Group Activities: Yes - Medication Management Medication Management Adherence: Partial Assessment - Assessment Merits Inpatient Hospitalization: For Immediate Safety, For Stabilization Inpatient DSM-V Dx: F43.12 Clinical Impression: 62yo white female who impulsively came to [place] from [place], [place]. She presented to the ED with questionable psychosis and bizarre behavior. She presents as delusional and disorganized. Since presentation, records denote history of schizoaffective disorder with poor adherence to outpatient treatment. She merits hospitalization for immediate safety, stabilization and [facility]. Plan - Plan Treatment Plan: Name: SHERRIE BOOKER Birthdate: 1955 [id number] continue acute intensive psychiatric treatment. restart lithium. DC thorazine and utilize seroquel for sleep. continue other medications. She is at risk of decompensation and vulnerability if discharged without intensive psychiatric treatment. Corn Husker gave authorization to continue treatment and referral to [facility]. Referral pending. obtain lithium level on am of 02/06/18. Continued Medication Management: Start Medication Medications: Current Medications Acetaminophen (Tylenol Tab*) 975 mg PO Q6H PRN PRN Reason: PAIN Last Admin: 02/03/18 13:35 Dose: 975 mg Amphetamine/Dextroamphetamine (Adderal Xr (Nf)) 30 mg PO DAILY [facility] Last Admin: 02/03/18 08:01 Dose: 30 mg Aripiprazole (Abilify Tab*) 20 mg PO DAILY [facility] Stop: 02/06/18 12:00 Last Admin: 02/03/18 08:03 Dose: 20 mg Aripiprazole (Abilify Maintena (Nf)) 400 mg IM Q28D [facility] Last Admin: 01/31/18 16:12 Dose: 400 mg Chlorpromazine HCl (Thorazine Tab*) 50 mg PO Q6H PRN PRN Reason: AGITATION Device (Nicotine Mouth Piece*) 1 each INH ONCE PRN PRN Reason: CRAVING Last Admin: 02/02/18 20:27 Dose: 1 each Diphenhydramine HCl (Benadryl Po*) 50 mg PO Q6H PRN PRN Reason: anxiety/insomnia Last Admin: 02/03/18 08:01 Dose: 50 mg Fluticasone Propionate (Flonase Nasal [place] 50mcg*) 2 spray BOTH NARES DAILY [facility] Last Admin: 02/03/18 08:03 Dose: 2 spray Gabapentin (Neurontin Cap(*)) 400 mg PO TID [facility] Last Admin: 02/03/18 13:36 Dose: 400 mg Guaifenesin (Mucinex*) 600 mg PO Q12H PRN PRN Reason: COUGH/CONGESTION Last Admin: 01/26/18 08:06 Dose: 600 mg Lidocaine (Lidoderm 5% Patch*) 1 patch TRANSDERM DAILY [facility] Last Admin: 02/03/18 09:07 Dose: Not Given [place] Carbonate ([place] Carbonate Tab*) 300 mg PO BID [facility] Lorazepam (Ativan Tab(*)) 1 mg PO Q8H PRN PRN Reason: ANXIETY Last Admin: 02/03/18 05:52 Dose: 1 mg Nicotine (Nicotine Inhaler*) 10 mg INH Q2H PRN PRN Reason: CRAVINGS Last Admin: 02/03/18 08:02 Dose: 10 mg Nicotine Polacrilex (Nicotine Gum*) 2 mg PO Q2H PRN PRN Reason: CRAVING Pharmacy Profile Note (Lidocaine Patch Remove*) 1 note PATCH OFF 0600 [facility] Last Admin: 02/03/18 08:04 Dose: Not Given Propranolol HCl (Inderal Tab*) 20 mg PO TID [facility] Last Admin: 02/03/18 13:35 Dose: 20 mg Quetiapine Fumarate (Seroquel Tab*) 200 mg PO BEDTIME [facility] Throat Lozenges (Chloraseptic Willy*) 1 willy PO Q4H PRN PRN Reason: SORE THROAT Last Admin: 02/02/18 03:51 Dose: 1 willy - Discharge Plan Discharge Plan: Consider Longer Term Tx
[2018-02-03] MEDS: Lithium Carbonate TAB* 300 MG PO SCH (20:17)
[2018-02-03] MEDS: QUEtiapine TAB* 100 MG PO SCH (20:21)
[2018-02-03] MEDS: Nicotine GUM* 2 MG PO PRN (22:34)
[2018-02-04] MEDS: Acetaminophen TAB* 325 MG PO PRN ×3 (07:39→20:11)
[2018-02-04] MEDS: Amphetamine/Dextroamph ER(NF) 10 MG CAP.ER PO SCH (07:39)
[2018-02-04] MEDS: ARIPiprazole TAB* 20 MG PO SCH (07:40)
[2018-02-04] MEDS: Lithium Carbonate TAB* 300 MG PO SCH ×2 (07:40→20:10)
[2018-02-04] MEDS: Propranolol TAB* 20 MG PO SCH ×3 (07:40→20:10)
[2018-02-04] MEDS: Gabapentin CAP(*) 400 MG PO SCH ×3 (07:41→20:09)
[2018-02-04] MEDS: LORazepam TAB(*) 1 MG PO PRN ×2 (07:41→16:06)
[2018-02-04] MEDS: Nicotine GUM* 2 MG PO PRN ×3 (07:42→16:21)
[2018-02-04] MEDS: Lidocaine Patch REMOVE* 1 NOTE MISC PATCH OFF SCH (07:42)
[2018-02-04] MEDS: Fluticasone NASAL SPRAY 50MCG* 16 gm SPRAY BTL BOTH NARES SCH (07:42)
[2018-02-04] MEDS: Lidocaine PATCH 5%* 1 PATCH TRANSDERM SCH (07:46)
[2018-02-04] MEDS: diPHENhydraMINE PO* 50 MG PO PRN (19:04)
[2018-02-04] MEDS: QUEtiapine TAB* 100 MG PO SCH (20:10)
[2018-02-05] MEDS: diPHENhydraMINE PO* 50 MG PO PRN ×2 (00:15→20:03)
[2018-02-05] MEDS: LORazepam TAB(*) 1 MG PO PRN ×3 (00:15→17:37)
[2018-02-05] MEDS: Lidocaine Patch REMOVE* 1 NOTE MISC PATCH OFF SCH (06:00)
[2018-02-05] MEDS: Fluticasone NASAL SPRAY 50MCG* 16 gm SPRAY BTL BOTH NARES SCH (08:09)
[2018-02-05] MEDS: Gabapentin CAP(*) 400 MG PO SCH ×3 (08:09→20:01)
[2018-02-05] MEDS: Acetaminophen TAB* 325 MG PO PRN ×3 (08:10→19:31)
[2018-02-05] MEDS: ARIPiprazole TAB* 20 MG PO SCH (08:10)
[2018-02-05] MEDS: Propranolol TAB* 20 MG PO SCH ×3 (08:11→20:01)
[2018-02-05] MEDS: Amphetamine/Dextroamph ER(NF) 10 MG CAP.ER PO SCH (08:11)
[2018-02-05] MEDS: Nicotine GUM* 2 MG PO PRN ×2 (08:13→13:34)
[2018-02-05] MEDS: Lithium Carbonate TAB* 300 MG PO SCH ×2 (08:57→20:22)
[2018-02-05] MEDS: Lidocaine PATCH 5%* 1 PATCH TRANSDERM SCH (08:57)
[2018-02-05] MEDS: QUEtiapine TAB* 100 MG PO SCH (20:02)
[2018-02-05] MEDS: Nicotine Inhaler* 10 MG AMP INH PRN (20:26)
[2018-02-06] MEDS: Lidocaine Patch REMOVE* 1 NOTE MISC PATCH OFF SCH (06:00)
[2018-02-06] MEDS: Acetaminophen TAB* 325 MG PO PRN ×3 (06:35→21:06)
[2018-02-06] MEDS: LORazepam TAB(*) 1 MG PO PRN ×2 (06:50→15:38)
[2018-02-06] MEDS: ARIPiprazole TAB* 20 MG PO SCH (08:51)
[2018-02-06] MEDS: Nicotine GUM* 2 MG PO PRN ×2 (08:51→14:07)
[2018-02-06] MEDS: Lithium Carbonate TAB* 300 MG PO SCH ×2 (08:52→20:10)
[2018-02-06] MEDS: Gabapentin CAP(*) 400 MG PO SCH ×3 (08:52→20:11)
[2018-02-06] MEDS: Propranolol TAB* 20 MG PO SCH ×3 (08:53→20:10)
[2018-02-06] MEDS: Amphetamine/Dextroamph ER(NF) 10 MG CAP.ER PO SCH (08:53)
[2018-02-06] MEDS: Fluticasone NASAL SPRAY 50MCG* 16 gm SPRAY BTL BOTH NARES SCH (09:00)
[2018-02-06] MEDS: Lidocaine PATCH 5%* 1 PATCH TRANSDERM SCH (09:00)
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
--- NOTE | 2018-02-06 11:23 | PN ---
MHU: Group Therapy Note - Service Type Service Type: [id number] Group Psychotherapy - Cognitive Behavioral Therapy (CBT): Patient presents with high volume of speech that impresses as being coherent within the context of self-report, but is tangential and off topic in group context. Concerns regarding disorganization of thought are apparent.
[2018-02-06] MEDS: Cyclobenzaprine TAB* 10 MG PO PRN ×2 (11:41→20:09)
[2018-02-06] MEDS: diPHENhydraMINE PO* 50 MG PO PRN (17:01)
[2018-02-06] MEDS: QUEtiapine TAB* 100 MG PO SCH (20:10)
[2018-02-07] MEDS: diPHENhydraMINE PO* 50 MG PO PRN ×2 (03:00→16:48)
[2018-02-07] MEDS: Acetaminophen TAB* 325 MG PO PRN ×3 (03:00→18:29)
[2018-02-07] MEDS: LORazepam TAB(*) 1 MG PO PRN ×3 (03:00→21:08)
[2018-02-07] MEDS: Lidocaine Patch REMOVE* 1 NOTE MISC PATCH OFF SCH ×2 (06:00→22:00)
[2018-02-07] MEDS: Amphetamine/Dextroamph ER(NF) 10 MG CAP.ER PO SCH (08:01)
[2018-02-07] MEDS: Gabapentin CAP(*) 400 MG PO SCH ×3 (08:02→20:03)
[2018-02-07] MEDS: Propranolol TAB* 20 MG PO SCH ×3 (08:02→20:03)
[2018-02-07] MEDS: Cyclobenzaprine TAB* 10 MG PO PRN ×2 (08:03→16:47)
[2018-02-07] MEDS: Lithium Carbonate TAB* 300 MG PO SCH ×2 (08:03→20:05)
[2018-02-07] MEDS: Lidocaine PATCH 5%* 1 PATCH TRANSDERM SCH (08:04)
[2018-02-07] MEDS: Fluticasone NASAL SPRAY 50MCG* 16 gm SPRAY BTL BOTH NARES SCH (08:05)
--- NOTE | 2018-02-07 11:29 | PN ---
MHU: Group Therapy Note - Service Type Service Type: [id number] Group Psychotherapy - Cognitive Behavioral Group Note: Jenn engaged well in discussion addressing ptsd symptoms and treatment. She took notes and asked appropriate clinical questions, but remains hyperverbal in group context. At the conclusion of group, she stood and turned, catching her foot on the leg of her chair and fell into the wall. Staff assessed and took vitals and Jenn expressed feeling embarassed by the incident, stating she was ok. She attended the next recreation group therapy.
[2018-02-07] MEDS: Nicotine GUM* 2 MG PO PRN (16:50)
[2018-02-07] MEDS: QUEtiapine TAB* 100 MG PO SCH (20:04)
[2018-02-08] MEDS: Acetaminophen TAB* 325 MG PO PRN ×3 (05:11→18:17)
[2018-02-08] MEDS: diPHENhydraMINE PO* 50 MG PO PRN ×3 (05:12→18:17)
[2018-02-08] MEDS: Cyclobenzaprine TAB* 10 MG PO PRN (08:03)
[2018-02-08] MEDS: Amphetamine/Dextroamph ER(NF) 10 MG CAP.ER PO SCH (08:04)
[2018-02-08] MEDS: Lithium Carbonate TAB* 300 MG PO SCH ×2 (08:05→20:06)
[2018-02-08] MEDS: Gabapentin CAP(*) 400 MG PO SCH ×3 (08:05→20:05)
[2018-02-08] MEDS: Propranolol TAB* 20 MG PO SCH ×3 (08:06→20:05)
[2018-02-08] MEDS: Lidocaine PATCH 5%* 1 PATCH TRANSDERM SCH (11:11)
[2018-02-08] MEDS: Fluticasone NASAL SPRAY 50MCG* 16 gm SPRAY BTL BOTH NARES SCH (11:16)
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
[2018-02-08] MEDS: Nicotine GUM* 2 MG PO PRN ×3 (14:52→21:01)
[2018-02-08] MEDS ORDERED: Mouth Piece, Nicotine* 1 EACH CARTRIDGE ONE (16:59)
[2018-02-08] MEDS: Nicotine Inhaler* 10 MG AMP INH PRN (17:00)
[2018-02-08] MEDS: Mouth Piece, Nicotine* 1 EACH CARTRIDGE INH PRN (17:00)
[2018-02-08] MEDS: QUEtiapine TAB* 100 MG PO SCH (20:05)
[2018-02-09] MEDS: Acetaminophen TAB* 325 MG PO PRN ×4 (00:35→18:48)
[2018-02-09] MEDS: diPHENhydraMINE PO* 50 MG PO PRN ×4 (00:36→18:48)
[2018-02-09] MEDS: Lidocaine Patch REMOVE* 1 NOTE MISC PATCH OFF SCH (08:15)
[2018-02-09] MEDS: Lidocaine PATCH 5%* 1 PATCH TRANSDERM SCH (08:15)
[2018-02-09] MEDS: Fluticasone NASAL SPRAY 50MCG* 16 gm SPRAY BTL BOTH NARES SCH (08:16)
[2018-02-09] MEDS: Propranolol TAB* 20 MG PO SCH ×3 (08:17→20:14)
[2018-02-09] MEDS: Gabapentin CAP(*) 400 MG PO SCH ×3 (08:17→20:15)
[2018-02-09] MEDS: Lithium Carbonate TAB* 300 MG PO SCH ×2 (08:18→20:14)
[2018-02-09] MEDS: Nicotine Inhaler* 10 MG AMP INH PRN ×2 (10:18→18:51)
--- NOTE | 2018-02-09 11:26 | PN ---
MHU: Group Therapy Note - Service Type Service Type: [id number] Group Psychotherapy - Cognitive Behavioral Therapy (CBT): Patient presents with high volume of speech that impresses as being coherent within the context of self-report, but is tangential and off topic in group context. Concerns regarding disorganization of thought are apparent.
[2018-02-09] MEDS: cloNIDine TAB* 0.1 MG PO PRN ×2 (11:29→15:47)
[2018-02-09] MEDS: Nicotine GUM* 2 MG PO PRN ×3 (12:41→18:51)
[2018-02-09] MEDS: QUEtiapine TAB* 100 MG PO SCH (20:15)
[2018-02-10] MEDS: Acetaminophen TAB* 325 MG PO PRN ×2 (05:14→13:01)
[2018-02-10] MEDS: diPHENhydraMINE PO* 50 MG PO PRN ×2 (05:14→16:04)
[2018-02-10] MEDS: Nicotine Inhaler* 10 MG AMP INH PRN ×2 (06:27→15:22)
[2018-02-10] MEDS: Nicotine GUM* 2 MG PO PRN ×3 (06:27→16:05)
[2018-02-10 07:35] VITALS: BP 103/68
[2018-02-10] MEDS: Fluticasone NASAL SPRAY 50MCG* 16 gm SPRAY BTL BOTH NARES SCH (08:18)
[2018-02-10] MEDS: Lidocaine Patch REMOVE* 1 NOTE MISC PATCH OFF SCH ×2 (08:18→08:32)
[2018-02-10] MEDS: Gabapentin CAP(*) 400 MG PO SCH ×2 (08:18→13:00)
[2018-02-10] MEDS: Lithium Carbonate TAB* 300 MG PO SCH (08:19)
[2018-02-10] MEDS: Propranolol TAB* 20 MG PO SCH ×2 (08:19→13:00)
[2018-02-10] MEDS: cloNIDine TAB* 0.1 MG PO PRN ×2 (08:54→12:19)
[2018-02-10] MEDS: Lidocaine PATCH 5%* 1 PATCH TRANSDERM SCH (12:20)
[2018-02-10] MEDS ORDERED: LORazepam TAB(*) 1 MG PO ONE (15:00)
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
== END 2018-02-10 16:30 | DRG 750 ==
LOC: ED 14:45 → BSU 01-11 14:29
PROVIDERS: ADMIT Psychiatry & Neurology Psychiatry; ATTEND Psychiatry & Neurology Psychiatry
PROC: GZHZZZZ Group Psychotherapy (ICD-10-PCS; principal; 2018-01-13)
DX: F25.9 Schizoaffective disorder, unspecified (principal); R45.851 Suicidal ideations; F31.2 Bipolar disorder, current episode manic severe with psychotic features; F14.90 Cocaine use, unspecified, uncomplicated; F41.9 Anxiety disorder, unspecified; F90.9 Attention-deficit hyperactivity disorder, unspecified type; Z62.810 Personal history of physical and sexual abuse in childhood; K21.9 Gastro-esophageal reflux disease without esophagitis; G89.29 Other chronic pain; F43.12 Post-traumatic stress disorder, chronic; I10 Essential (primary) hypertension; M54.2 Cervicalgia; M25.512 Pain in left shoulder; M25.511 Pain in right shoulder; Z90.710 Acquired absence of both cervix and uterus; Z91.5 Personal history of self-harm; Z91.419 Personal history of unspecified adult abuse; Z80.9 Family history of malignant neoplasm, unspecified; Z85.038 Personal history of other malignant neoplasm of large intestine; Z85.41 Personal history of malignant neoplasm of cervix uteri; Z85.43 Personal history of malignant neoplasm of ovary; Z90.49 Acquired absence of other specified parts of digestive tract; Z88.8 Allergy status to other drugs, medicaments and biological substances; Z88.1 Allergy status to other antibiotic agents; Z88.2 Allergy status to sulfonamides; Z91.010 Allergy to peanuts; Z91.018 Allergy to other foods; Z91.048 Other nonmedicinal substance allergy status; Z81.1 Family history of alcohol abuse and dependence; Z81.8 Family history of other mental and behavioral disorders
CPT/HCPCS: 36415; 70450; 80053; 80061; 80178; 80307; 80320; 80329; 81003; 81015; 83036; 84443; 85025; 87086; 90853; 93005; 99222; 99231; 99232; 99233; 99238; 99284; A9270-GY; G0480

== ENCOUNTER 2019-01-26 17:54 | Inpatient (IN) | payer OTHER ==
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
[2019-01-26 18:59] LABS: ABS Basophils 0.1 10^3/ul (0-0.2); ABS Eosinophils 0.5 10^3/ul (0-0.6); ABS Monocytes 0.9 10^3/ul (0-0.8); Eosinophil % 5.9 %; Hematocrit 35 % (35-47); Hemoglobin 11.4 g/dL (12.0-16.0); Lymphocyte % 35.5 %; Mean Corpuscular HGB Conc 32 g/dL (31-36); Mean Corpuscular Hemoglobin 27 pg (27-31); Mean Corpuscular Volume 83 fL (80-97); Mean Platelet Volume 7.3 fL (7.4-10.4); Nucleated Red Blood Cells % 0.1; Platelet Count 457 10^3/uL (150-450); Red Blood Count 4.23 10^6 /uL (3.70-4.87); Red Cell Distribution Width 14 % (10.5-15); White Blood Count 8.6 10^3/uL (3.5-10.8)
[2019-01-26 19:00] LABS: Urine Appearance Clear; Urine Bilirubin Negative (Negative); Urine Blood Negative (Negative); Urine Color Yellow; Urine Glucose Negative (Negative); Urine Ketones Negative (Negative); Urine Nitrite Negative (Negative); Urine Protein Negative (Negative); Urine Specific Gravity 1.013 (1.010-1.030); Urine Urobilinogen Negative (Negative)
[2019-01-26 19:18] LABS: ALT 13 U/L (7-52); AST 17 U/L (13-39); Albumin 4.2 g/dL (3.2-5.2); Albumin/Globulin Ratio 1.4 (1-3); Alkaline Phosphatase 82 U/L (34-104); Anion Gap 8 mmol/L (2-11); BUN/Creatinine Ratio 21.3 (8-20); Blood Urea Nitrogen 16 mg/dL (6-24); CO2 Carbon Dioxide 25 mmol/L (22-32); Calcium 9.4 mg/dL (8.6-10.3); Chloride 104 mmol/L (101-111); EGFR African American 94.7 (>60); EGFR Non-African American 78.3 (>60); Globulin 3.1 g/dL (2-4); Glucose 110 mg/dL (70-100); Potassium 4.2 mmol/L (3.5-5.0); Sodium 137 mmol/L (135-145); Total Protein 7.3 g/dL (6.4-8.9)
[2019-01-26 19:21] LABS: Urine Benzodiazepine Screen None Detected (None Detect); Urine Opiates Screen None Detected (None Detect)
[2019-01-26 19:45] LABS: Acetaminophen < 15 mcg/mL; Alcohol < 10 mg/dL (<10); Salicylate < 2.50 mg/dL (<30)
[2019-01-26 20:00] LABS: TSH (Thyroid Stimulating Horm) 0.59 mcIU/mL (0.34-5.60)
[2019-01-26] MEDS ORDERED: Cyclobenzaprine TAB* 10 MG PO ONE (20:24)
[2019-01-26] MEDS ORDERED: traMADol TAB* 50 MG PO ONE (20:24)
[2019-01-26] MEDS ORDERED: Propranolol TAB* 20 MG PO ONE (20:57)
[2019-01-26] MEDS ORDERED: Al Hydrox/Mg Hydrox/Simet LIQ* 30 ML UDC PO PRN (23:02)
[2019-01-26] MEDS: traZODone TAB* 50 MG TAB PO SCH (23:19)
[2019-01-27 07:17] LABS: HDL Cholesterol 50.7 mg/dL
[2019-01-27] MEDS: Fluticasone NASAL SPRAY 50MCG* 16 gm SPRAY BTL BOTH NARES SCH (08:19)
[2019-01-27] MEDS: Acetaminophen TAB* 325 MG PO PRN ×3 (08:19→20:46)
[2019-01-27] MEDS: Vitamin THERAPEUTIC TAB PO SCH (08:20)
[2019-01-27] MEDS: Pantoprazole TAB * 40 MG TAB PO SCH (08:20)
[2019-01-27] MEDS: Propranolol TAB* 20 MG PO SCH ×3 (08:20→20:44)
[2019-01-27] MEDS: traMADol TAB* 50 MG PO PRN (11:12)
[2019-01-27] MEDS: traZODone TAB* 50 MG TAB PO SCH (20:45)
--- NOTE | 2019-01-27 22:39 | HP ---
HISTORY AND PHYSICAL: DATE OF ADMISSION: 01/26/19 IDENTIFYING DATA: Jenn is a 63-year-old single disabled female with multiple prior psychiatric hospitalizations here at [facility] and hospitals in [facility] who came to the emergency department last evening complaining of having suicidal ideation for 1 week. She describes her reasoning for having suicidal ideation as not having enough support in her life. The patient also reports that she was getting the support from her daughter who is away for the next 10 days and she does not feel safe without her around, so she took a bus from [place] to come to [facility] for admission. With regards to her symptoms, all she describes her symptoms as being physical, related to her back, chest, and 3 cancers according to her in her cervix, ovary, and breasts. She also describes her stresses as not having enough medical support in [facility] because no one believes her and would not do a biopsy of her breast lumps. She was also claiming that she had pneumonia recently and was not treated appropriately and her list goes on, but denies any mood, thoughts, or perceptual disturbances. Jenn claims that she has a diagnosis of ADD and PTSD and claims to dissociate when she has a lot of stresses in life. Historically, Jenn is renowned for drug-seeking behavior, especially for stimulants, and she goes around doctor shopping to convince one or the other doctor to prescribe her Adderall. She also has affinity to abuse Benadryl. In the past, her tox screen was positive for benzodiazepines and cocaine, but she denies ever using or abusing any of those drugs. PAST PSYCHIATRIC HISTORY: As mentioned in HPI, she has many psychiatric hospitalizations locally in [place] as well as in [facility]. Her admission on this unit last time was on 01/11/18 and after an extensive stay on this unit she was transferred to [facility] from where she was discharged into the community. We do not have any information whether she had any other hospitalization after that; however, she was being followed at [facility] in [place], which is a [facility] outpatient psychiatry clinic. She reports her psychiatrist as Charly Winchester or Taylor Palmer, both are nurse practitioners. She receives her psychotropic medications from her psychiatrist and that includes Prozac, trazodone, and propranolol. Her primary care physician according to Jenn prescribes her Adderall, tramadol, Flexeril, omeprazole, and so on; however, she will not disclose who is her primary care physician. PAST MEDICAL HISTORY: Per the patient report, she has multiple cancer locations in her uterus, cervix, ovaries, and breasts. There is no independent verification for cancer, although there are positive reports on chest x-ray for some kind of lumps. PAST SURGICAL HISTORY: Hysterectomy, colon resection, bilateral mammoplasty in 1982; she reports this was a reduction, bilateral rotator cuff repair. During her last admission, I-STOP check did not indicate the controlled substance prescribers. ALLERGIES: Jenn has allergies to multiple medications including SULFA, PENICILLIN, PROMETHAZINE, NSAIDs, NAPROSYN, KETOROLAC, and HYDROXYZINE and evidently, they appear to have typical reactions according to all reports. FAMILY PSYCHIATRIC HISTORY: Jenn reports 2 of her brothers had alcohol use disorder. Her maternal uncle completed a suicide and so did her cousin. However, it was later found out that her cousin from cancer. PERSONAL AND SOCIAL HISTORY: Her history is totally unreliable, but according to collaterals she receives SSD/SSI. She is the second of 6 children from parents who are . Raised in [facility] [place] [facility]. She said she graduated high school. 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 She then moved to [place], obtained a BA in literature and history of women. She has a 29-year-old daughter with whom she did not have any contact for the last 10 years and that was one of the reasons that she moved from [facility] [facility] to this area. SUBSTANCE ABUSE HISTORY: Jenn is very evasive, but from records it is known that she had issues with both alcohol and controlled substances. PHYSICAL EXAM: Physical exam was offered; Jenn declined because she was not happy with the way I was asking intrusive questions. She got up and walked away ; however, she did not appear to be in any physical distress. Her vital signs showed a blood pressure of 138/108 with 117 heart rate. That was in the emergency room. This morning, her vital signs showed a blood pressure of 109/84 , pulse 96, respirations 16, temperature 97.3. Her back pain was 7/10. O2 sat was 98. MENTAL STATUS EXAMINATION: Jenn is an average-height, healthy-appearing female who was wearing hospital provided paper scrubs. Her personal hygiene and grooming appears to be adequate. She is alert and oriented to time , place, and person. Makes good eye contact. Speech is normal in all spheres. There was no evidence of thought, perceptual or psychomotor disturbances. She continues to report she is suicidal and has been suicidal for the last 1 week without any plans at this time. Denies homicidal ideation. Her intelligence appears to be average as evidenced by her vocabulary and fund of knowledge. Memory functions are intact in all spheres. Insight and judgment appear to be impaired. LABORATORY DATA: Labs done in the emergency room were basically unremarkable, except for UDS positive for amphetamines. SUMMARY: This 63-year-old female with known history of mental illness and prescription drug abuse came to the emergency room complaining of suicidal ideations in the context of lack of support in the area, but she is not exhibiting any mood, thought or perceptual disturbances. DIAGNOSTIC IMPRESSION: Unspecified mood disorder, rule out substance-induced mood disorder, history of posttraumatic stress disorder. Physical Health Diagnoses: 1. Chronic back pain. 2. History of lumps in the breast. 3. History of breast reduction surgery. 4. Hysterectomy. TREATMENT RECOMMENDATIONS: Jenn will remain hospitalized on the behavioral science unit for her safety at this time. Her code status will remain full. While on the unit, supportive milieu, individual and group therapy will be initiated and the patient will be encouraged to participate. I have already continued her on all her outpatient medications, except for Adderall and I am going to discontinue her Benadryl as well because of her prior history of abusing both. Rest of her psychotropic medication management will be deferred to her assigned psychiatrist on the unit. [id number]/[facility] #: [id number] [facility]ITAL[facility]
[2019-01-28] MEDS: traMADol TAB* 50 MG PO PRN ×2 (03:38→15:39)
[2019-01-28] MEDS: Acetaminophen TAB* 325 MG PO PRN ×2 (07:10→13:58)
[2019-01-28] MEDS: Propranolol TAB* 20 MG PO SCH ×3 (10:32→20:11)
[2019-01-28] MEDS: Vitamin THERAPEUTIC TAB PO SCH (10:32)
[2019-01-28] MEDS: Fluticasone NASAL SPRAY 50MCG* 16 gm SPRAY BTL BOTH NARES SCH (10:32)
[2019-01-28] MEDS: Pantoprazole TAB * 40 MG TAB PO SCH (10:32)
[2019-01-28] MEDS: traZODone TAB* 50 MG TAB PO SCH (20:11)
[2019-01-29] MEDS: traMADol TAB* 50 MG PO PRN ×2 (04:44→16:45)
[2019-01-29] MEDS: Fluticasone NASAL SPRAY 50MCG* 16 gm SPRAY BTL BOTH NARES SCH (08:36)
[2019-01-29] MEDS: Vitamin THERAPEUTIC TAB PO SCH (08:36)
[2019-01-29] MEDS: Pantoprazole TAB * 40 MG TAB PO SCH (08:36)
[2019-01-29] MEDS: Propranolol TAB* 20 MG PO SCH ×3 (08:36→20:22)
[2019-01-29] MEDS: Acetaminophen TAB* 325 MG PO PRN ×3 (08:37→20:24)
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
--- NOTE | 2019-01-29 13:00 | PN ---
BSU: Group Therapy Note - Service Type Service Type: 04061 Group Psychotherapy - Cognitive Behavioral Group Therapy ( CBT):Patient presented in CBT programming as disorganized and disruptive in discussion and needed repeated redirection to attend to presented materials.
[2019-01-29] MEDS: traZODone TAB* 50 MG TAB PO SCH (20:22)
[2019-01-30] MEDS: traMADol TAB* 50 MG PO PRN ×2 (04:45→16:46)
[2019-01-30] MEDS: Acetaminophen TAB* 325 MG PO PRN ×2 (06:20→13:52)
[2019-01-30] MEDS: Fluticasone NASAL SPRAY 50MCG* 16 gm SPRAY BTL BOTH NARES SCH (08:33)
[2019-01-30] MEDS: Vitamin THERAPEUTIC TAB PO SCH (08:33)
[2019-01-30] MEDS: Pantoprazole TAB * 40 MG TAB PO SCH (08:33)
[2019-01-30] MEDS: Propranolol TAB* 20 MG PO SCH ×3 (08:35→20:15)
--- NOTE | 2019-01-30 10:27 | PN ---
Subjective - Subjective Date of Service: 01/30/19 Service Type: [id number] Hosp care 35 min high complexity Subjective: Nursing Report: Patient was visible on unit, no chemical restraints or PRNs. Slept overnight without incident. She is attending group activities. CC: " I have paperwork that says I take adderall " Patient said she would provide paper work that states that she takes adderall despite the record not being on [facility]. She is amendable and said ok I think prozac and buspar will help me. She said that her daughter is in [place] for 10 days. Patient was seen and evaluated in the common room. The patient reported attending group. Objective - General Observations Appearance: Neat Appears Stated Age: Yes Stature: WNL Posture: WNL Eye Contact: Average Behavior/Activity: Accelerated - Interaction Observations Attitude Towards Examiner: Mistrustful Stated Mood: Dysphoric Affect: Blunted Speech Pattern/Tone: Perseverating Thought Process: Loose Associations, [place] Perception: WNL Thought Content: Preoccupation/Ruminations Thought Process: Lethality: Passive Wish Hallucination Type: None, Auditory Delusion Type: None - Cognitive Function Orientation: A&O x 4 Level of Consciousness: Awake Ability to Make Reasonable Decisions: Moderately Impaired - Medication Compliance Cooperative with Inpatient Medication Regimen: Yes - Group Participation Participates in Group Activities: Yes Assessment - Assessment Clinical Impression: 63 year old female was admitted for having suicidal ideation and was admitted to the [facility] Plan - Plan Treatment Plan: Name: SHERRIE MARADIAGA Birthdate: 1955 [id number] Plan #Q30 minute observation. # The patient requires inpatient admission at this time to assure safety, receive treatment and work toward stabilization. # Collaboration with Social Work to assist with disposition and after care. #[facility] record shows no record of prior adderall Rx. #Start prozac 20mg daily #Start Buspar 15mg BID #Peanut allergy message to nutrition #Awaiting collateral from daughter Goals improve coping strategies to deal with stress, eliminate/ reduce suicidal ideation. Sodium 137 mmol/L (135-145) 01/26/19 18:51 Potassium 4.2 mmol/L (3.5-5.0) 01/26/19 18:51 BUN 16 mg/dL (6-24) 01/26/19 18:51 Creatinine 0.75 mg/dL (0.51-0.95) 01/26/19 18:51 Hemoglobin A1c 6.2 % (4.0-5.6) H 01/27/19 06:40 Calcium 9.4 mg/dL (8.6-10.3) 01/26/19 18:51 AST 17 U/L (13-39) 01/26/19 18:51 ALT 13 U/L (7-52) 01/26/19 18:51 Triglycerides 67 mg/dL 01/27/19 06:38 Cholesterol 150 mg/dL 01/27/19 06:38 LDL Cholesterol 86 mg/dL 01/27/19 06:38 Vital Signs Temp Pulse Resp BP Pulse Ox 96.8 F 73 16 131/71 95 01/29/19 08:52 01/29/19 20:20 01/30/19 06:45 01/29/19 20:20 01/29/19 08:52 Continued Medication Management: Continue Outpt Medication Medications: Current Medications Acetaminophen (Tylenol Tab*) 650 mg PO Q4H PRN PRN Reason: PAIN or TEMP > 101 F Last Admin: 01/30/19 06:20 Dose: 650 mg Al Hydrox/Mg Hydrox/Simethicone (Maalox Plus*) 30 ml PO Q4H PRN PRN Reason: INDIGESTION Aripiprazole (Heriberto Maintena (Nf)) 400 mg IM Q28D [facility] Fluoxetine HCl (Prozac Cap*) 20 mg PO DAILY [facility] Fluticasone Propionate (Flonase Nasal [place] 50mcg*) 2 spray BOTH NARES DAILY [facility] Last Admin: 01/30/19 08:33 Dose: 2 spray Multivitamins (Theragran Tab*) 1 tab PO DAILY [facility] Last Admin: 01/30/19 08:33 Dose: 1 tab Pantoprazole Sodium (Protonix Tab*) 40 mg PO DAILY [facility] Last Admin: 01/30/19 08:33 Dose: 40 mg Propranolol HCl (Inderal Tab*) 20 mg PO TID [facility] Last Admin: 01/30/19 08:35 Dose: Not Given Tramadol HCl (Ultram*) 50 mg PO Q12H PRN PRN Reason: PAIN Last Admin: 01/30/19 04:45 Dose: 50 mg Trazodone HCl (Desyrel Tab*) 50 mg PO BEDTIME [facility] Last Admin: 01/29/19 20:22 Dose: 50 mg - Discharge Plan Discharge Plan: Inpatient Hospitalization
[2019-01-30] MEDS: FLUoxetine CAP* 20 MG PO SCH (11:00)
--- NOTE | 2019-01-30 13:05 | PN ---
BSU: Group Therapy Note - Service Type Service Type: 99123 Group Psychotherapy - Cognitive Behavioral Group Therapy ( CBT):Patient was attentive and participatory in CBT programming this morning, and remained in good behavioral control. Patient expressed positive insights regarding relevant treatment interventions and goals.
[2019-01-30] MEDS: busPIRone TAB* 10 MG PO SCH ×2 (16:19→20:14)
[2019-01-30] MEDS: traZODone TAB* 50 MG TAB PO SCH (20:15)
[2019-01-30] MEDS ORDERED: busPIRone TAB* 15 MG PO SCH (21:00)
[2019-01-31] MEDS: traMADol TAB* 50 MG PO PRN ×2 (04:20→16:19)
[2019-01-31] MEDS: Acetaminophen TAB* 325 MG PO PRN ×4 (06:15→20:14)
[2019-01-31] MEDS: busPIRone TAB* 10 MG PO SCH ×3 (08:26→20:11)
[2019-01-31] MEDS: Pantoprazole TAB * 40 MG TAB PO SCH (08:26)
[2019-01-31] MEDS: Vitamin THERAPEUTIC TAB PO SCH (08:26)
[2019-01-31] MEDS: FLUoxetine CAP* 20 MG PO SCH (08:26)
[2019-01-31] MEDS: Propranolol TAB* 20 MG PO SCH ×3 (08:26→20:12)
[2019-01-31] MEDS: Fluticasone NASAL SPRAY 50MCG* 16 gm SPRAY BTL BOTH NARES SCH (08:27)
--- NOTE | 2019-01-31 11:04 | PN ---
Subjective - Subjective Date of Service: 01/31/19 Service Type: [id number] Hosp care 35 min high complexity Subjective: Nursing Report: Patient was visible on unit, no chemical restraints or PRNs. Slept overnight without incident. She is attending group activities. CC: " Can I have more medication" Patient said she would provide paper work that states that she takes adderall despite the record not being in [facility] system. She is requesting nicotine gum and stated that she doesnt smoke but wants it for anxiety. She stated she is thinking about where to live when she leaves the hospital. She is unsure if buspar is helping with her anxiety. She reported constipation. Objective - General Observations Appearance: Disheveled Appears Stated Age: Yes Stature: WNL Posture: Slumped Eye Contact: Average Behavior/Activity: Accelerated - Interaction Observations Attitude Towards Examiner: Anxious Stated Mood: Dysphoric Affect: Blunted Speech Pattern/Tone: Clear Thought Process: Coherent Perception: WNL Thought Content: Preoccupation/Ruminations Hallucination Type: None Delusion Type: Somatic - Cognitive Function Orientation: A&O x 4 Level of Consciousness: Awake - Medication Compliance Cooperative with Inpatient Medication Regimen: Yes - Group Participation Participates in Group Activities: Yes Assessment - Assessment Clinical Impression: 63 year old female was admitted for having suicidal ideation and was admitted to the [facility] Plan - Plan Treatment Plan: Name: SHERRIE MARADIAGA Birthdate: 1955 [id number] Plan #Q30 minute observation. # The patient requires inpatient admission at this time to assure safety, receive treatment and work toward stabilization. # Collaboration with Social Work to assist with disposition and after care. #Increase prozac 30mg daily #Buspar 10mg TID #Colace for constipation #Peanut allergy message to nutrition #Awaiting collateral from daughter Goals: Improve coping strategies to deal with stress, eliminate/ reduce suicidal ideation. Sodium 137 mmol/L (135-145) 01/26/19 18:51 Potassium 4.2 mmol/L (3.5-5.0) 01/26/19 18:51 BUN 16 mg/dL (6-24) 01/26/19 18:51 Creatinine 0.75 mg/dL (0.51-0.95) 01/26/19 18:51 Hemoglobin A1c 6.2 % (4.0-5.6) H 01/27/19 06:40 Calcium 9.4 mg/dL (8.6-10.3) 01/26/19 18:51 AST 17 U/L (13-39) 01/26/19 18:51 ALT 13 U/L (7-52) 01/26/19 18:51 Triglycerides 67 mg/dL 01/27/19 06:38 Cholesterol 150 mg/dL 01/27/19 06:38 LDL Cholesterol 86 mg/dL 01/27/19 06:38 Vital Signs Temp Pulse Resp BP Pulse Ox 96.9 F 88 16 117/89 100 01/31/19 09:46 01/31/19 09:46 01/31/19 09:46 01/31/19 09:46 01/31/19 09:46 Continued Medication Management: Continue Outpt Medication Medications: Current Medications Acetaminophen (Tylenol Tab*) 650 mg PO Q4H PRN PRN Reason: PAIN or TEMP > 101 F Last Admin: 01/31/19 10:06 Dose: 650 mg Al Hydrox/Mg Hydrox/Simethicone (Maalox Plus*) 30 ml PO Q4H PRN PRN Reason: INDIGESTION Aripiprazole (Abilijose m Maintena (Nf)) 400 mg IM Q28D [facility] Buspirone HCl (Buspar Tab*) 10 mg PO TID [facility] Last Admin: 01/31/19 08:26 Dose: 10 mg Fluoxetine HCl (Prozac Cap*) 20 mg PO DAILY [facility] Last Admin: 01/31/19 08:26 Dose: 20 mg Fluticasone Propionate (Flonase Nasal [place] 50mcg*) 2 spray BOTH NARES DAILY [facility] Last Admin: 01/31/19 08:27 Dose: 2 spray Multivitamins (Theragran Tab*) 1 tab PO DAILY [facility] Last Admin: 01/31/19 08:26 Dose: 1 tab Pantoprazole Sodium (Protonix Tab*) 40 mg PO DAILY [facility] Last Admin: 01/31/19 08:26 Dose: 40 mg Propranolol HCl (Inderal Tab*) 20 mg PO TID [facility] Last Admin: 01/31/19 08:26 Dose: 20 mg Tramadol HCl (Ultram*) 50 mg PO Q12H PRN PRN Reason: PAIN Last Admin: 01/31/19 04:20 Dose: 50 mg Trazodone HCl (Desyrel Tab*) 50 mg PO BEDTIME [facility] Last Admin: 01/30/19 20:15 Dose: 50 mg - Discharge Plan Discharge Plan: Inpatient Hospitalization
[2019-01-31] MEDS ORDERED: Docusate CAP* 100 MG PO PRN (11:08)
--- NOTE | 2019-01-31 16:31 | PN ---
BSU: Group Therapy Note - Service Type Service Type: [id number] Group Psychotherapy - Medication Education Group: Patient was attentive and participatory in group, and remained in good behavioral control. Patient expressed positive insights regarding relevant treatment interventions. Patient stated understanding of material discussed and had appropriate questions.
[2019-01-31] MEDS: traZODone TAB* 50 MG TAB PO SCH (20:12)
[2019-02-01] MEDS: Acetaminophen TAB* 325 MG PO PRN ×3 (02:36→13:54)
[2019-02-01] MEDS: traMADol TAB* 50 MG PO PRN ×2 (03:50→16:01)
[2019-02-01] MEDS: FLUoxetine CAP* 10 MG PO SCH (08:45)
[2019-02-01] MEDS: Vitamin THERAPEUTIC TAB PO SCH (08:45)
[2019-02-01] MEDS: Propranolol TAB* 20 MG PO SCH ×3 (08:45→20:31)
[2019-02-01] MEDS: Pantoprazole TAB * 40 MG TAB PO SCH (08:46)
[2019-02-01] MEDS: Fluticasone NASAL SPRAY 50MCG* 16 gm SPRAY BTL BOTH NARES SCH (08:46)
[2019-02-01] MEDS: busPIRone TAB* 10 MG PO SCH ×3 (08:46→20:29)
--- NOTE | 2019-02-01 11:59 | PN ---
Subjective - Subjective Date of Service: 02/01/19 Service Type: [id number] Hosp care 35 min high complexity Subjective: Nursing Report: Patient was visible on unit, no chemical restraints or PRNs. Slept overnight without incident. She is attending group activities. CC: " Can I have adderall" Patient continues to asked for adderall despite the record not being in [facility] system. She noted that her daughter is a holguin and that she went to [employer] and is not sure when she will hear back from her. She doesnt want to return to live in [place] because she said she will be surrounded by drug dealers. Objective - General Observations Appearance: Neat Appears Stated Age: Yes Stature: WNL Posture: WNL Eye Contact: Average Behavior/Activity: Accelerated - Interaction Observations Attitude Towards Examiner: Anxious Stated Mood: Dysphoric Affect: Blunted Speech Pattern/Tone: Perseverating Thought Process: Filght of Ideas, Over Inclusive Perception: WNL Thought Content: Preoccupation/Ruminations Hallucination Type: None Delusion Type: Somatic - Cognitive Function Orientation: A&O x 4 Level of Consciousness: Awake - Medication Compliance Cooperative with Inpatient Medication Regimen: Yes - Group Participation Participates in Group Activities: Yes Assessment - Assessment Clinical Impression: 63 year old female was admitted for having suicidal ideation and was admitted to the [facility] Plan - Plan Treatment Plan: Name: SHERRIE MARADIAGA Birthdate: 1955 [id number] Plan #Q30 minute observation w/ Staff pass # The patient requires inpatient admission at this time to assure safety, receive treatment and work toward stabilization. # Collaboration with Social Work to assist with disposition and after care. #Continue prozac 30mg daily #Buspar 10mg TID #Colace for constipation #Peanut allergy message to nutrition #Daughter is not reachable for collateral # To receive abilify maintena 400mg IM tomorrow. Goals: Improve coping strategies to deal with stress, eliminate/ reduce suicidal ideation. Sodium 137 mmol/L (135-145) 01/26/19 18:51 Potassium 4.2 mmol/L (3.5-5.0) 01/26/19 18:51 BUN 16 mg/dL (6-24) 01/26/19 18:51 Creatinine 0.75 mg/dL (0.51-0.95) 01/26/19 18:51 Hemoglobin A1c 6.2 % (4.0-5.6) H 01/27/19 06:40 Calcium 9.4 mg/dL (8.6-10.3) 01/26/19 18:51 AST 17 U/L (13-39) 01/26/19 18:51 ALT 13 U/L (7-52) 01/26/19 18:51 Triglycerides 67 mg/dL 01/27/19 06:38 Cholesterol 150 mg/dL 01/27/19 06:38 LDL Cholesterol 86 mg/dL 01/27/19 06:38 Vital Signs Temp Pulse Resp BP Pulse Ox 98.6 F 88 16 122/83 100 02/01/19 08:33 02/01/19 08:33 02/01/19 08:33 02/01/19 08:33 02/01/19 08:33 Continued Medication Management: Continue Outpt Medication Medications: Current Medications Acetaminophen (Tylenol Tab*) 650 mg PO Q4H PRN PRN Reason: PAIN or TEMP > 101 F Last Admin: 02/01/19 06:30 Dose: 650 mg Al Hydrox/Mg Hydrox/Simethicone (Maalox Plus*) 30 ml PO Q4H PRN PRN Reason: INDIGESTION Aripiprazole (Abilijose m Maintena (Nf)) 400 mg IM Q28D [facility] Buspirone HCl (Buspar Tab*) 10 mg PO TID [facility] Last Admin: 02/01/19 08:46 Dose: 10 mg Docusate Sodium (Colace Cap*) 100 mg PO BID PRN PRN Reason: CONSTIPATION Fluoxetine HCl (Prozac Cap*) 30 mg PO DAILY [facility] Last Admin: 02/01/19 08:45 Dose: 30 mg Fluticasone Propionate (Flonase Nasal [place] 50mcg*) 2 spray BOTH NARES DAILY [facility] Last Admin: 02/01/19 08:46 Dose: 2 spray Multivitamins (Theragran Tab*) 1 tab PO DAILY [facility] Last Admin: 02/01/19 08:45 Dose: 1 tab Pantoprazole Sodium (Protonix Tab*) 40 mg PO DAILY [facility] Last Admin: 02/01/19 08:46 Dose: 40 mg Propranolol HCl (Inderal Tab*) 20 mg PO TID [facility] Last Admin: 02/01/19 08:45 Dose: 20 mg Tramadol HCl (Ultram*) 50 mg PO Q12H PRN PRN Reason: PAIN Last Admin: 02/01/19 03:50 Dose: 50 mg Trazodone HCl (Desyrel Tab*) 50 mg PO BEDTIME [facility] Last Admin: 01/31/19 20:12 Dose: 50 mg - Discharge Plan Discharge Plan: Inpatient Hospitalization
[2019-02-01] MEDS: traZODone TAB* 50 MG TAB PO SCH (20:33)
[2019-02-02] MEDS: traMADol TAB* 50 MG PO PRN ×2 (05:37→17:40)
[2019-02-02] MEDS: Fluticasone NASAL SPRAY 50MCG* 16 gm SPRAY BTL BOTH NARES SCH (08:27)
[2019-02-02] MEDS: Propranolol TAB* 20 MG PO SCH ×3 (08:27→20:55)
[2019-02-02] MEDS: Vitamin THERAPEUTIC TAB PO SCH (08:27)
[2019-02-02] MEDS: busPIRone TAB* 10 MG PO SCH ×3 (08:27→20:54)
[2019-02-02] MEDS: FLUoxetine CAP* 10 MG PO SCH (08:28)
[2019-02-02] MEDS: Pantoprazole TAB * 40 MG TAB PO SCH (08:28)
[2019-02-02] MEDS: Acetaminophen TAB* 325 MG PO PRN ×3 (08:30→20:53)
--- NOTE | 2019-02-02 13:32 | PN ---
Subjective - Subjective Date of Service: 02/02/19 Service Type: [id number] Hosp care 35 min high complexity Subjective: Nursing Report: Patient was visible on unit, no chemical restraints or PRNs. Slept overnight without incident. She is attending group activities. CC: " I dont know how to act without my adderall" Patient continues to asked for adderall despite the record not being in [facility] system She claims that she doesnt know how to act if she is not on her adderall. She reported that her pharmacy is faxing over paper work verifying that she takes adderall. She is tolerating medications without side effects. Objective - General Observations Appears Stated Age: Yes Stature: WNL Posture: Slumped Eye Contact: Average Behavior/Activity: Accelerated - Interaction Observations Attitude Towards Examiner: Cooperative Stated Mood: Dysphoric Affect: Blunted Speech Pattern/Tone: Clear Thought Process: Coherent Perception: WNL Thought Content: Preoccupation/Ruminations Hallucination Type: None Delusion Type: None, Somatic - Cognitive Function Orientation: A&O x 4 Level of Consciousness: Awake - Medication Compliance Cooperative with Inpatient Medication Regimen: Yes - Group Participation Participates in Group Activities: Yes Assessment - Assessment Clinical Impression: 63 year old female was admitted for having suicidal ideation and was admitted to the [facility] Plan - Plan Treatment Plan: Name: SHERRIE MARADIAGA Birthdate: 1955 [id number] Plan #Q30 minute observation w/ Staff pass # The patient requires inpatient admission at this time to assure safety, receive treatment and work toward stabilization. # Collaboration with Social Work to assist with disposition and after care. #Continue prozac 30mg daily #Buspar 10mg TID #Colace for constipation #Peanut allergy message to nutrition #Daughter was reached for collateral and plans to visit tomorrow. # To receive abilify maintena 400mg IM today Tentative discharge Tuesday Goals: Improve coping strategies to deal with stress, eliminate/ reduce suicidal ideation. Sodium 137 mmol/L (135-145) 01/26/19 18:51 Potassium 4.2 mmol/L (3.5-5.0) 01/26/19 18:51 BUN 16 mg/dL (6-24) 01/26/19 18:51 Creatinine 0.75 mg/dL (0.51-0.95) 01/26/19 18:51 Hemoglobin A1c 6.2 % (4.0-5.6) H 01/27/19 06:40 Calcium 9.4 mg/dL (8.6-10.3) 01/26/19 18:51 AST 17 U/L (13-39) 01/26/19 18:51 ALT 13 U/L (7-52) 01/26/19 18:51 Triglycerides 67 mg/dL 01/27/19 06:38 Cholesterol 150 mg/dL 01/27/19 06:38 LDL Cholesterol 86 mg/dL 01/27/19 06:38 Vital Signs Temp Pulse Resp BP Pulse Ox 98.1 F 61 16 122/79 98 02/02/19 08:00 02/02/19 08:00 02/02/19 12:21 02/02/19 08:00 02/02/19 08:00 Continued Medication Management: Continue Outpt Medication Medications: Current Medications Acetaminophen (Tylenol Tab*) 650 mg PO Q4H PRN PRN Reason: PAIN or TEMP > 101 F Last Admin: 02/02/19 12:32 Dose: 650 mg Al Hydrox/Mg Hydrox/Simethicone (Maalox Plus*) 30 ml PO Q4H PRN PRN Reason: INDIGESTION Aripiprazole (Abilijose m Maintena (Nf)) 400 mg IM Q28D [facility] Buspirone HCl (Buspar Tab*) 10 mg PO TID [facility] Last Admin: 02/02/19 08:27 Dose: 10 mg Docusate Sodium (Colace Cap*) 100 mg PO BID PRN PRN Reason: CONSTIPATION Fluoxetine HCl (Prozac Cap*) 30 mg PO DAILY [facility] Last Admin: 02/02/19 08:28 Dose: 30 mg Fluticasone Propionate (Flonase Nasal [place] 50mcg*) 2 spray BOTH NARES DAILY [facility] Last Admin: 02/02/19 08:27 Dose: 2 spray Multivitamins (Theragran Tab*) 1 tab PO DAILY [facility] Last Admin: 02/02/19 08:27 Dose: 1 tab Pantoprazole Sodium (Protonix Tab*) 40 mg PO DAILY [facility] Last Admin: 02/02/19 08:28 Dose: 40 mg Propranolol HCl (Inderal Tab*) 20 mg PO TID [facility] Last Admin: 02/02/19 08:27 Dose: 20 mg Tramadol HCl (Ultram*) 50 mg PO Q12H PRN PRN Reason: PAIN Last Admin: 02/02/19 05:37 Dose: 50 mg Trazodone HCl (Desyrel Tab*) 50 mg PO BEDTIME [facility] Last Admin: 02/01/19 20:33 Dose: 50 mg - Discharge Plan Discharge Plan: Inpatient Hospitalization
[2019-02-02] MEDS: traZODone TAB* 50 MG TAB PO SCH (20:55)
[2019-02-03] MEDS: Acetaminophen TAB* 325 MG PO PRN ×4 (03:39→17:24)
[2019-02-03] MEDS: traMADol TAB* 50 MG PO PRN ×2 (05:26→20:01)
[2019-02-03] MEDS: Fluticasone NASAL SPRAY 50MCG* 16 gm SPRAY BTL BOTH NARES SCH (08:25)
[2019-02-03] MEDS: Vitamin THERAPEUTIC TAB PO SCH (08:26)
[2019-02-03] MEDS: busPIRone TAB* 10 MG PO SCH ×3 (08:26→20:01)
[2019-02-03] MEDS: Propranolol TAB* 20 MG PO SCH ×3 (08:26→20:03)
[2019-02-03] MEDS: Pantoprazole TAB * 40 MG TAB PO SCH (08:26)
[2019-02-03] MEDS: FLUoxetine CAP* 10 MG PO SCH (08:26)
[2019-02-03] MEDS: traZODone TAB* 50 MG TAB PO SCH (20:01)
[2019-02-04] MEDS: Acetaminophen TAB* 325 MG PO PRN ×3 (05:00→15:43)
[2019-02-04] MEDS: Propranolol TAB* 20 MG PO SCH ×3 (08:07→20:07)
[2019-02-04] MEDS: traMADol TAB* 50 MG PO PRN ×2 (08:07→20:07)
[2019-02-04] MEDS: Pantoprazole TAB * 40 MG TAB PO SCH (08:08)
[2019-02-04] MEDS: Vitamin THERAPEUTIC TAB PO SCH (08:08)
[2019-02-04] MEDS: FLUoxetine CAP* 10 MG PO SCH (08:08)
[2019-02-04] MEDS: Fluticasone NASAL SPRAY 50MCG* 16 gm SPRAY BTL BOTH NARES SCH (08:09)
[2019-02-04] MEDS: busPIRone TAB* 10 MG PO SCH ×3 (08:09→20:07)
[2019-02-04] MEDS: traZODone TAB* 50 MG TAB PO SCH (20:07)
[2019-02-05] MEDS: Acetaminophen TAB* 325 MG PO PRN ×2 (05:55→12:43)
[2019-02-05] MEDS: traMADol TAB* 50 MG PO PRN (07:20)
[2019-02-05] MEDS: FLUoxetine CAP* 10 MG PO SCH (09:54)
[2019-02-05] MEDS: Pantoprazole TAB * 40 MG TAB PO SCH (09:54)
[2019-02-05] MEDS: Vitamin THERAPEUTIC TAB PO SCH (09:54)
[2019-02-05] MEDS: Fluticasone NASAL SPRAY 50MCG* 16 gm SPRAY BTL BOTH NARES SCH (09:54)
[2019-02-05] MEDS: busPIRone TAB* 10 MG PO SCH (09:54)
[2019-02-05] MEDS: Propranolol TAB* 20 MG PO SCH (09:54)
--- NOTE | 2019-02-05 10:47 | DS ---
Subjective - Subjective Service Types: [address] [facility] Day Mgmt complex over 30 min Discharge Date: 02/05/19 Subjective: CC: "Fine" Patient looks forward to seeing her daughter. The patient was seen and evaluated before discharge today. The patient reported having adequate appetite and sleep. The patient reports attending and participating in day groups. Per nursing no behavioral issues or overnight events reported. Patient reported tolerating medications without side effects. IDENTIFYING DATA: Jenn is a 63-year-old single disabled female with multiple prior psychiatric hospitalizations here at [facility] and hospitals in [facility] who came to the emergency department last evening complaining of having suicidal ideation for 1 week. She describes her reasoning for having suicidal ideation as not having enough support in her life. The patient also reports that she was getting the support from her daughter who is away for the next 10 days and she does not feel safe without her around, so she took a bus from [place] to come to [facility] for admission. With regards to her symptoms, all she describes her symptoms as being physical, related to her back, chest, and 3 cancers according to her in her cervix, ovary, and breasts. She also describes her stresses as not having enough medical support in [facility] because no one believes her and would not do a biopsy of her breast lumps. She was also claiming that she had pneumonia recently and was not treated appropriately and her list goes on, but denies any mood, thoughts, or perceptual disturbances. Jenn claims that she has a diagnosis of ADD and PTSD and claims to dissociate when she has a lot of stresses in life. Historically, Jenn is renowned for drug- seeking behavior, especially for stimulants, and she goes around doctor shopping to convince one or the other doctor to prescribe her Adderall. She also has affinity to abuse Benadryl. In the past, her tox screen was positive for benzodiazepines and cocaine, but she denies ever using or abusing any of those drugs. PAST PSYCHIATRIC HISTORY: As mentioned in HPI, she has many psychiatric hospitalizations locally in [place] as well as in [facility]. Her admission on this unit last time was on 01/11/18 and after an extensive stay on this unit she was transferred to [facility] from where she was discharged into the community. We do not have any information whether she had any other hospitalization after that; however, she was being followed at [facility] in [place], which is a [facility] outpatient psychiatry clinic. She reports her psychiatrist as Charly Winchester or Taylor Palmer, both are nurse practitioners. She receives her psychotropic medications from her psychiatrist and that includes Prozac, trazodone, and propranolol. Her primary care physician according to Jenn prescribes her Adderall, tramadol, Flexeril, omeprazole, and so on; however, she will not disclose who is her primary care physician. PAST MEDICAL HISTORY: Per the patient report, she has multiple cancer locations in her uterus, cervix, ovaries, and breasts. There is no independent verification for cancer, although there are positive reports on chest x-ray for some kind of lumps. PAST SURGICAL HISTORY: Hysterectomy, colon resection, bilateral mammoplasty in 1982; she reports this was a reduction, bilateral rotator cuff repair. During her last admission, I-STOP check did not indicate the controlled substance prescribers ALLERGIES: Jenn has allergies to multiple medications including SULFA, PENICILLIN, PROMETHAZINE, NSAIDs, NAPROSYN, KETOROLAC, and HYDROXYZINE and evidently, they appear to have typical reactions according to all reports. FAMILY PSYCHIATRIC HISTORY: Jenn reports 2 of her brothers had alcohol use disorder. Her maternal uncle completed a suicide and so did her cousin. However, it was later found out that her cousin from cancer. PERSONAL AND SOCIAL HISTORY: Her history is totally unreliable, but according to collaterals she receives SSD/ SSI. She is the second of 6 children from parents who are . Raised in [facility]. She said she graduated high school. 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 She then moved to [place], obtained a BA in literature and history of women. She has a 29-year-old daughter with whom she did not have any contact for the last 10 years and that was one of the reasons that she moved from [facility] to [facility]. SUBSTANCE ABUSE HISTORY: Jenn is very evasive, but from records it is known that she had issues with both alcohol and controlled substances. PHYSICAL EXAM: Physical exam was offered; Jenn declined because she was not happy with the way I was asking intrusive questions. She got up and walked away; however, she did not appear to be in any physical distress. Her vital signs showed a blood pressure of 138/108 with 117 heart rate. That was in the emergency room. This morning, her vital signs showed a blood pressure of 109/84, pulse 96, respirations 16, temperature 97.3. Her back pain was 7/10. O2 sat was 98. MENTAL STATUS EXAMINATION: Jenn is an average-height, healthy-appearing female who was wearing hospital provided paper scrubs. Her personal hygiene and grooming appears to be adequate. She is alert and oriented to time, place, and person. Makes good eye contact. Speech is normal in all spheres. There was no evidence of thought, perceptual or psychomotor disturbances. She continues to report she is suicidal and has been suicidal for the last 1 week without any plans at this time. Denies homicidal ideation. Her intelligence appears to be average as evidenced by her vocabulary and fund of knowledge. Memory functions are intact in all spheres. Insight and judgment appear to be impaired. LABORATORY DATA: Labs done in the emergency room were basically unremarkable, except for UDS positive for amphetamines. SUMMARY: This 63-year-old female with known history of mental illness and prescription drug abuse came to the emergency room complaining of suicidal ideations in the context of lack of support in the area, but she is not exhibiting any mood, thought or perceptual disturbances. DIAGNOSTIC IMPRESSION: Unspecified mood disorder, rule out substance-induced mood disorder, history of posttraumatic stress disorder. Physical Health Diagnoses: 1. Chronic back pain. 2. History of lumps in the breast. 3. History of breast reduction surgery. 4. Hysterectomy. Diagnosis on Discharge: Major depressive disorder with psychotic features, PTSD , Illness anxiety Disorder. Condition at the time of discharge: At the time of discharge patient showed improvement of sleep and appetite. The patient was not a danger to self or others. The patient denied suicidal ideation , intent or plan. The patient denied homicidal targets, ideation, intent or plan. This patient participated in psychosocial rehabilitation and gained some insight into problems. The patient gained insight into mental illness, triggers, and treatment. The patient took medication as prescribed. The patient denied side effects of medication and objective signs of side effects were not evident. Therapy Resources were offered to the patient. Patient was given a supply of prescriptions at the time of discharge. The patient plans to attend follow up care with the follow up arrangements that were discussed and put in place. Patient was asked to keep appointments as scheduled, take medication as prescribed, have routine follow up care with their primary care physician and refrain from any use of alcohol or drugs. Objective - General Observations Appearance: Neat Appears Stated Age: Yes Stature: WNL Posture: Slumped Eye Contact: Average Behavior/Activity: WNL - Interaction Observations Attitude Towards Examiner: Cooperative Stated Mood: Euthymic Affect: Full Speech Pattern/Tone: Appropriate Thought Process: Coherent Perception: WNL Thought Content: WNL Hallucination Type: None Delusion Type: None - Cognitive Function Orientation: A&O x 4 Level of Consciousness: Awake Cognition: WNL - Medication Compliance Cooperative with Inpatient Medication Regimen: Yes - Group Participation Participates in Group Activities: Yes Treatment Course & Assessment Clinical Course & Impression: Hospital course part A: 63 year old female was admitted for having suicidal ideation and was admitted to the [facility] Hospital course part B: Labs ordered included CBC, CMP, UDS, TSH, HBA1c, TSH, Toxicology screen, Urine analysis, and lipid profile. Labs were reviewed and did not require the need for further evaluation. Vital signs were monitored during the course of admission. The patient was admitted to the adult behavioral unit and placed on 15 minute check for safety. At a later time the patient was on Q30 minute observation and staff pass privileges. With those limits being extended , there were no occurrence of behavioral incidents. The patient did well on the unit and went to groups. Interacted with peers had adequate sleep and regular appetite. Tolerated medication changes without side effects. Group therapy and services were offered. The risks, benefits, and alternative treatment options were discussed as well as of the risks of refusing treatment. Treatment associated risks discussed. After this discussion made an acknowledgement of this understanding. Follow up care appointments were put in place for follow up care. The importance of monitoring for metabolic changes was discussed and acknowledgement of this understanding was made. Improvements in patient from the time of admission include: Improved affect, sleep and decrease in anxiety. No longer suicidal and no longer having feelings of hopelessness. The patient expressed readiness for discharge home. The patient presents with a broader range of affect, and the absence of depressed mood, delusions, perceptual disturbances. The patient denied suicidal and or homicidal ideation intent or plan. Overall, the patient responded well to inpatient treatment as evidenced by their report of strengthening of coping mechanisms, reduced distress, and more positive outlook on circumstances. Of note there was an improvement of recognizing how emotional state can effect mood and behavior. Safety precautions were put in place which included involving the patient and their family to closely monitor for changes in mental state. In addition, implementing follow up care, screening for the need to remove/securing firearms , weapons and stockpile of medications. Patient/ family instructed to immediately call 911 should any safety concerns arise. WE[employer] DRILLER HELPER was checked and no indications of prescription abuse or diversion were present. Patient advised of the lethality and dangerousness of combining medications with pain medications and/ or with alcohol and acknowledged this understanding. No controlled substances were found on I stop record. AIMS was performed and insignificant for involuntary movement disorders. The patient was advised of the 24 hour / 7 days a week availability of the emergency room and to call 911 in the event of an emergency such as being suicidal and/ or homicidal. The patient was informed of the contact information for [facility], Suicide Prevention and Crisis Services, National Suicide Prevention Lifeline, [facility], Alcoholics Anonymous, and [facility]. Medications started included abilify maintena 400mg IM on 02/02/19 next due date on 03/02/19. She received injection without complication. Patient continued to seek adderall during over the course of her admission. Her emotional state is correlative to the relationship she has with her daughter. Family ( daughter) was reached before discharge and her daughter confirmed that the patient is at their baseline. They are in agreement with the discharge plan. They were advised about the warning signs associated with decompensation and progression of mental illness. Her daughter prefers that she lives in [place] as to not become overwhelming the resources that she can provide. Patient will be discharged to live at [facility]. She will be taken directly to a follow up appointment following discharge. Patient has refrained from using alcohol and plans to abstain from using alcohol. Follow up appointment at [facility] 02/05/19 at 2pm and [facility] 02/08/19 at 3pm Patient advised to follow up with her PCP and L[facility] in regards to mammograms and history of breast conditions. Patient informed of follow up appointment times. See more details for follow up care in the discharge plan. Risk factors: , Age, single, history of mental illness. Family history of suicide. Lack of support. Prior suicide attempt. Prior history of substance abuse. Protective factors: Currently no suicidal ideation, intent or plan. She has children. No history of service. Currently no feelings of hopelessness , not in an occupation of social isolation, doesnt have multiple medical conditions, no family history of suicide, doesnt have access to firearms. Doesn t have command hallucinations and or psychotic features at this time. No active alcohol abuse. Not a anniversary of a loss of a loved one. No changes in relationship status, housing, job, or school. Currently future orientated. Patient engaged in treatment and compliant with medication. Merits Inpatient Hospitalization: No Clear for Discharge: Adequate Clinical Respons Discharge Planning - Discharge Planning [facility] Recommendations for Continuing Care: Medication Management Medications: Current Medications Acetaminophen (Tylenol Tab*) 650 mg PO Q4H PRN PRN Reason: PAIN or TEMP > 101 F Last Admin: 02/05/19 05:55 Dose: 650 mg Al Hydrox/Mg Hydrox/Simethicone (Maalox Plus*) 30 ml PO Q4H PRN PRN Reason: INDIGESTION Aripiprazole (Heriberto Maintena (Nf)) 400 mg IM Q28D [facility] Last Admin: 02/02/19 14:32 Dose: 400 mg Buspirone HCl (Buspar Tab*) 10 mg PO TID [facility] Last Admin: 02/05/19 09:54 Dose: 10 mg Docusate Sodium (Colace Cap*) 100 mg PO BID PRN PRN Reason: CONSTIPATION Fluoxetine HCl (Prozac Cap*) 30 mg PO DAILY [facility] Last Admin: 02/05/19 09:54 Dose: 30 mg Fluticasone Propionate (Flonase Nasal [place] 50mcg*) 2 spray BOTH NARES DAILY [facility] Last Admin: 02/05/19 09:54 Dose: 2 spray Multivitamins (Theragran Tab*) 1 tab PO DAILY [facility] Last Admin: 02/05/19 09:54 Dose: 1 tab Pantoprazole Sodium (Protonix Tab*) 40 mg PO DAILY [facility] Last Admin: 02/05/19 09:54 Dose: 40 mg Propranolol HCl (Inderal Tab*) 20 mg PO TID [facility] Last Admin: 02/05/19 09:54 Dose: 20 mg Tramadol HCl (Ultram*) 50 mg PO Q12H PRN PRN Reason: PAIN Last Admin: 02/05/19 07:20 Dose: 50 mg Trazodone HCl (Desyrel Tab*) 50 mg PO BEDTIME [facility] Last Admin: 02/04/19 20:07 Dose: 50 mg Discharge Planning: Prescriptions provided for discharge [x] Yes [] No Follow up care details as per social work arrangements. Patient response to discharge plan: [] eager for discharge [x] agreeable with discharge plan [] ambivalent about discharge [] disagrees with discharge today
[2019-02-05 11:00] VITALS: BP 130/79
== END 2019-02-05 12:45 | disposition home or self-care (01) | DRG 751 ==
LOC: ED 17:54 → BSU 23:10
PROVIDERS: ADMIT Psychiatry & Neurology Psychiatry; ATTEND Psychiatry & Neurology Psychiatry
DX: F33.3 Major depressive disorder, recurrent, severe with psychotic symptoms (principal); R45.851 Suicidal ideations; F39 Unspecified mood [affective] disorder; F43.10 Post-traumatic stress disorder, unspecified; M54.9 Dorsalgia, unspecified; F41.9 Anxiety disorder, unspecified; Z85.3 Personal history of malignant neoplasm of breast; Z85.41 Personal history of malignant neoplasm of cervix uteri; Z85.42 Personal history of malignant neoplasm of other parts of uterus; Z85.43 Personal history of malignant neoplasm of ovary; Z88.0 Allergy status to penicillin; Z88.2 Allergy status to sulfonamides; Z88.8 Allergy status to other drugs, medicaments and biological substances; Z81.1 Family history of alcohol abuse and dependence; Z81.8 Family history of other mental and behavioral disorders; Z80.9 Family history of malignant neoplasm, unspecified; Z79.899 Other long term (current) drug therapy
CPT/HCPCS: 36415; 71046; 80053; 80061; 80307; 80320; 80329; 81003; 83036; 84443; 85025; 90853; 99222; 99233; 99238; 99285; A9270-GY; G0480

== ENCOUNTER 2019-08-06 16:37 | Emergency (ER) | payer OTHER ==
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
[2019-08-06 17:57] LABS: ABS Eosinophils 0.3 10^3/ul (0-0.6); ABS Lymphocytes 3.5 10^3/ul (1.0-4.8); ABS Monocytes 1.1 10^3/ul (0-0.8); Hematocrit 34 % (35-47); Hemoglobin 11.4 g/dL (12.0-16.0); Lymphocyte % 35.6 %; Mean Corpuscular HGB Conc 33 g/dL (31-36); Mean Corpuscular Hemoglobin 28 pg (27-31); Mean Corpuscular Volume 84 fL (80-97); Mean Platelet Volume 7.5 fL (7.4-10.4); Platelet Count 320 10^3/uL (150-450); Red Blood Count 4.12 10^6 /uL (3.70-4.87); Red Cell Distribution Width 15 % (10-15)
[2019-08-06 18:13] LABS: ALT 15 U/L (7-52); AST 21 U/L (13-39); Albumin 4.3 g/dL (3.2-5.2); Albumin/Globulin Ratio 1.8 (1-3); Alkaline Phosphatase 79 U/L (34-104); Anion Gap 7 mmol/L (2-11); BUN/Creatinine Ratio 9.8 (8-20); Blood Urea Nitrogen 9 mg/dL (6-24); CO2 Carbon Dioxide 25 mmol/L (22-32); Calcium 9.2 mg/dL (8.6-10.3); Chloride 100 mmol/L (101-111); EGFR African American 74.8 (>60); EGFR Non-African American 61.9 (>60); Globulin 2.4 g/dL (2-4); Glucose 102 mg/dL (70-100); Potassium 4.1 mmol/L (3.5-5.0); Sodium 132 mmol/L (135-145); Total Protein 6.7 g/dL (6.4-8.9)
[2019-08-06 18:42] LABS: Acetaminophen < 15 mcg/mL; Alcohol < 10 mg/dL (<10); Salicylate < 2.50 mg/dL (<30)
--- NOTE | 2019-08-06 19:21 | ED ---
Progress - Progress Note Progress Note: Pt is a signout from Dr. Tang at 1900 pending MHE. Re-Evaluation - Re-Evaluation First Eval Re-Evaluation Time: 17:25 Comment: Patient is medically clear for mental health evaluation. Course/Dx - Course Course Of Treatment: Pt is a signout from Dr. Tang at 1900 pending MHE. Pt will be signed out to Dr. Vanessa at 0700 on 08/07/19 pending MHE. - Diagnoses Provider Diagnoses: Anxiety Discharge ED - Sign-Out/Discharge Documenting (check all that apply): Sign-Out Patient, Receiving Sign-Out Signing out patient TO: Jerry Vanessa Receiving patient FROM: Bola Tang - Discharge Plan Referrals: No Primary Care Phys,NOPCP [Medical Doctor] - - Attestation Statements Document Initiated by Gloriaibluis e: Yes Documenting Scribe: Nancy Winters Provider For Whom Uyen is Documenting (Include Credential): Marcial Parra MD. Scribe Attestation: Nancy Henderson scribed for Marcial Parra MD. on 08/07/19 at 0643. Scribe Documentation Reviewed: Yes Provider Attestation: The documentation as recorded by the Nancy sandoval accurately reflects the service I personally performed and the decisions made by Marcial beasley MD. Status of Scribe Document: Viewed
[2019-08-06 19:35] LABS: Urine Appearance Clear; Urine Bilirubin Negative (Negative); Urine Blood Negative (Negative); Urine Color Yellow; Urine Glucose Negative (Negative); Urine Ketones Negative (Negative); Urine Nitrite Negative (Negative); Urine Protein Negative (Negative); Urine Specific Gravity 1.009 (1.010-1.030); Urine Urobilinogen Negative (Negative)
[2019-08-06] MEDS ORDERED: Ibuprofen TAB* 400 MG PO ONE (19:46)
[2019-08-06 20:02] LABS: Urine Benzodiazepine Screen None Detected (None Detect); Urine Opiates Screen Presumptive Positive (None Detect)
[2019-08-06] MEDS ORDERED: traMADol TAB* 50 MG PO PRN (21:07)
[2019-08-07] MEDS: Cephalexin CAP* 500 MG PO SCH ×2 (00:58→09:35)
[2019-08-07] MEDS ORDERED: traMADol TAB* 50 MG PO PRN (02:14)
[2019-08-07] MEDS ORDERED: Magic M W2 Ben/Maal/Nyst/Lido* 240 ML MOUTHWASH (alt formulation) SWISH SPIT ONE (03:00)
[2019-08-07] MEDS ORDERED: Amphetamine/Dextroamph ER(NF) 10 MG CAP.ER PO ONE (07:00)
--- NOTE | 2019-08-07 07:20 | ED ---
Progress - Progress Note Progress Note: Patient is received as a sign-out from Dr. Parra to Dr. Kirkland at 0700 shift change pending MHE. 920 - Patient's case was reviewed by Dr. Ochoa, patient to be discharged to home with outpatient mental health follow up. Re-Evaluation - Re-Evaluation First Eval Re-Evaluation Time: 17:25 Comment: Patient is medically clear for mental health evaluation. Course/Dx - Course Course Of Treatment: Pt is a signout from Dr. Tang at 1900 pending MHE. Pt will be signed out to Dr. Kirkland at 0700 on 08/07/19 pending MHE. - Diagnoses Provider Diagnoses: Borderline personality disorder - Provider Notifications Discussed Care Of Patient With: Gary Ochoa Time Discussed With Above Provider: 09:21 Instructed by Provider To: Other - 920 - Patient's case was reviewed by Dr. Ochoa, patient to be discharged to home with outpatient mental health follow up. Discharge ED - Sign-Out/Discharge Documenting (check all that apply): Patient Departure - discharge , Receiving Sign-Out Receiving patient FROM: Marcial Parra - Discharge Plan Condition: Stable Disposition: HOME Patient Education Materials: Borderline Personality Disorder (DC) Referrals: No Primary Care Phys,NOPCP [Medical Doctor] - - Billing Disposition and Condition Condition: STABLE Disposition: Home - Attestation Statements Document Initiated by Uyen: Yes Documenting Scribe: AQUILES GALICIA Provider For Whom Uyen is Documenting (Include Credential): ROBIN KIRKLAND MD Scribe Attestation: AQUILES Henderson, scribed for ROBIN KIRKLAND MD on 08/07/19 at 1702. Scribe Documentation Reviewed: Yes Provider Attestation: The documentation as recorded by the AQUILES sandoval accurately reflects the service I personally performed and the decisions made by me, ROBIN KIRKLAND MD Status of Scribe Document: Viewed
[2019-08-07] MEDS ORDERED: FLUoxetine CAP* 10 MG PO ONE (09:23)
[2019-08-07] MEDS ORDERED: Cyclobenzaprine TAB* 10 MG PO ONE (09:23)
[2019-08-07] MEDS ORDERED: Omeprazole CAP (NF) 20 MG CAP.DR PO ONE (09:23)
[2019-08-07] MEDS ORDERED: HYDROcodone/ACETAMIN 5-325 MG* 1 TAB PO ONE (09:31)
[2019-08-07 09:37] VITALS: BP 154/95
== END 2019-08-07 10:30 | disposition home or self-care (01) ==
LOC: ED 16:37
DX: F60.3 Borderline personality disorder (principal); F41.9 Anxiety disorder, unspecified; I10 Essential (primary) hypertension; F90.9 Attention-deficit hyperactivity disorder, unspecified type; F43.10 Post-traumatic stress disorder, unspecified; F17.210 Nicotine dependence, cigarettes, uncomplicated; K21.9 Gastro-esophageal reflux disease without esophagitis; Z88.6 Allergy status to analgesic agent; Z88.0 Allergy status to penicillin; Z88.2 Allergy status to sulfonamides; Z88.8 Allergy status to other drugs, medicaments and biological substances
CPT/HCPCS: 36415; 80053; 80307; 80320; 80329; 81003; 84443; 85025; 99285; A9270-GY; G0480

== ENCOUNTER 2022-02-20 20:56 | Inpatient (IN) ==
[2022-02-20] MEDS ORDERED: Gabapentin 600 mg TAB (NF) PO ONE (21:43)
[2022-02-20] MEDS ORDERED: Omeprazole 20 mg CAP (NF) PO ONE (22:13)
[2022-02-20 22:25] LABS: ABS Eosinophils 0.3 10^3/ul (0-0.6); ABS Lymphocytes 3.1 10^3/ul (1.0-4.8); ABS Neutrophils 3.3 10^3/ul (1.5-7.7); Eosinophil % 3.9 %; Hematocrit 36 % (35-47); Hemoglobin 12.2 g/dL (12.0-16.0); Lymphocyte % 39.8 %; Mean Corpuscular HGB Conc 34 g/dL (31-36); Mean Corpuscular Hemoglobin 28 pg (27-31); Mean Corpuscular Volume 84 fL (80-97); Mean Platelet Volume 7.5 fL (7.4-10.4); Nucleated Red Blood Cells % 0.1; Platelet Count 374 10^3/uL (150-450); Red Blood Count 4.31 10^6 /uL (3.70-4.87); Red Cell Distribution Width 16 % (10-15); White Blood Count 7.8 10^3/uL (3.5-10.8)
[2022-02-20 22:30] LABS: Urine Appearance Cloudy; Urine Bilirubin Negative (Negative); Urine Blood Negative (Negative); Urine Color Yellow; Urine Glucose Negative (Negative); Urine Ketones Negative (Negative); Urine Nitrite Negative (Negative); Urine Protein Negative (Negative); Urine Specific Gravity 1.008 (1.002-1.030); Urine Urobilinogen Negative (Negative)
[2022-02-20 22:35] LABS: Urine Bacteria Absent (Absent); Urine Red Blood Cell Absent (Absent); Urine Squamous Epithelial Cell Present (Absent); Urine White Blood Cell Trace(0-5/hpf) (Absent)
[2022-02-20 22:49] LABS: ALT 18 U/L (7-52); AST 18 U/L (13-39); Albumin 4.1 g/dL (3.2-5.2); Albumin/Globulin Ratio 1.7 (1-3); Alcohol, S < 13 mg/dL (<13); Alkaline Phosphatase 70 U/L (35-149); Anion Gap 5 mmol/L (2-11); Blood Urea Nitrogen 9 mg/dL (6-24); CO2 Carbon Dioxide 29 mmol/L (22-32); Chloride 104 mmol/L (101-111); Globulin 2.4 g/dL (2-4); Glucose 92 mg/dL (70-100); Potassium 3.7 mmol/L (3.5-5.0); Sodium 138 mmol/L (135-145); Total Protein 6.5 g/dL (6.4-8.9); eGFR CKD-EPI 100.4 (>60)
[2022-02-20 22:52] LABS: Urine Benzodiazepine Screen Presumptive Positive (None Detect); Urine Cannabinoids Screen None Detected (None Detect); Urine Opiates Screen None Detected (None Detect)
[2022-02-20 23:03] LABS: TSH Ultra Thyroid Stim Horm 1.11 mcIU/mL (0.34-5.60)
[2022-02-22] MEDS: Vitamin THERAPEUTIC TAB PO SCH (09:17)
[2022-02-22] MEDS ORDERED: OLANZapine 5 mg TAB *ODT PO PRN (16:47)
[2022-02-23] MEDS: Vitamin THERAPEUTIC TAB PO SCH (07:50)
[2022-02-23] MEDS: Al Hydrox/Mg Hydrox/Simet LIQ 30 ML UDC PO PRN (20:52)
[2022-02-24] MEDS: Vitamin THERAPEUTIC TAB PO SCH (09:08)
[2022-02-25] MEDS: Vitamin THERAPEUTIC TAB PO SCH (09:42)
[2022-02-25] MEDS ORDERED: OLANZapine 5 mg TAB *ODT PO PRN (14:17)
[2022-02-26] MEDS: Vitamin THERAPEUTIC TAB PO SCH (09:37)
[2022-02-26] MEDS: CMCS:Lactase Enzyme (NF) 3,000 UNIT TAB PO SCH (16:56)
[2022-02-27] MEDS: Vitamin THERAPEUTIC TAB PO SCH (08:30)
[2022-02-27] MEDS: CMCS:Lactase Enzyme (NF) 3,000 UNIT TAB PO SCH ×3 (08:31→18:46)
[2022-02-27] MEDS: Al Hydrox/Mg Hydrox/Simet LIQ 30 ML UDC PO PRN (15:32)
[2022-02-28] MEDS: Vitamin THERAPEUTIC TAB PO SCH (08:29)
[2022-02-28] MEDS: CMCS:Lactase Enzyme (NF) 3,000 UNIT TAB PO SCH ×3 (08:30→17:09)
[2022-02-28] MEDS: Al Hydrox/Mg Hydrox/Simet LIQ 30 ML UDC PO PRN (15:29)
[2022-03-01] MEDS: CMCS:Lactase Enzyme (NF) 3,000 UNIT TAB PO SCH ×3 (08:15→17:22)
[2022-03-01] MEDS: Vitamin THERAPEUTIC TAB PO SCH (08:16)
[2022-03-02] MEDS: CMCS:Lactase Enzyme (NF) 3,000 UNIT TAB PO SCH ×3 (08:24→17:09)
[2022-03-02] MEDS: Vitamin THERAPEUTIC TAB PO SCH (08:26)
[2022-03-02] MEDS: Al Hydrox/Mg Hydrox/Simet LIQ 30 ML UDC PO PRN (15:50)
[2022-03-03] MEDS: Vitamin THERAPEUTIC TAB PO SCH (08:18)
[2022-03-03] MEDS: CMCS:Lactase Enzyme (NF) 3,000 UNIT TAB PO SCH ×3 (08:18→17:14)
[2022-03-04] MEDS: CMCS:Lactase Enzyme (NF) 3,000 UNIT TAB PO SCH ×3 (08:17→17:37)
[2022-03-04] MEDS: Vitamin THERAPEUTIC TAB PO SCH (08:18)
[2022-03-05] MEDS: CMCS:Lactase Enzyme (NF) 3,000 UNIT TAB PO SCH (08:21)
[2022-03-05] MEDS: Vitamin THERAPEUTIC TAB PO SCH (08:23)
[2022-03-05 08:41] VITALS: BP 125/81
== END 2022-03-05 11:30 | disposition home or self-care (01) | DRG 885 ==
LOC: ED 20:56 → BSU 02-21 09:29
PROVIDERS: ADMIT Psychiatry & Neurology Psychiatry; ATTEND Student in an Organized Health Care Education/Training Program